=== PATIENT | male | born 1935 | race Caucasian/White ===

== ENCOUNTER 2018-12-27 16:57 | Inpatient (IN) ==
--- NOTE | 2018-12-27 18:03 | Emergency Department Note ---
Entered by Andrew Goldberg acting as a scribe for Dayton Mina DO History of Present Illness General Chief complaint: Cough Stated complaint: COUGH Source: patient and family (son) Limitations: no limitations History of Present Illness Onset (ago): day(s) (few days) Location: chest Severity: moderate Exacerbated By: + movement Associated symptoms: + denies other symptoms (abdominal pain); no headaches The patient is an 83-year-old male who presented to the emergency department for an evaluation of difficulty breathing. The patient's history is mostly obtained from his son. The patient was seen by home health today. He has been having difficulty breathing and cough over the last few days but also has been noticing episodes of emesis. His son states that he has a reported altered mental status according to the home health nurse but the patient's son states that he is very close to his baseline with his underlying dementia. The patient does not have a documented fever. He does not complain of any headache or abdominal pain. He does complain of some difficulty breathing upon exertion but does not have orthopnea or lower extremity edema according to the son. The patient has not seen his family doctor for the symptoms. The symptoms were moderate to severe and the patient arrived via ambulance but was sent to the emergency department because of high acuity in the department. Home Medications Home Medications Medication Instructions Recorded Confirmed Type aspirin 81 mg PO QAM 12/27/18 12/27/18 History carvedilol 6.25 mg PO BID 12/27/18 12/28/18 History citalopram [Celexa] 20 mg PO QDL 12/27/18 12/27/18 History cyanocobalamin (vitamin B-12) 1,000 mcg PO QAM 12/27/18 12/27/18 History [Vitamin B-12] donepezil [Aricept] 10 mg PO QDL 12/27/18 12/27/18 History fenofibrate micronized 134 mg PO QAM 12/27/18 12/27/18 History lisinopril 10 mg PO QDL 12/27/18 12/27/18 History omega [id number]-fish oil [Fish Oil] 1 cap PO TIDM 12/27/18 12/27/18 History rosuvastatin 20 mg PO HS 12/27/18 12/27/18 History Allergies Allergy/AdvReac Type Severity Reaction Status Date / Time Penicillins Allergy Unknown ANAPHYLAXIS Verified 12/27/18 18:18 Past Med/Surg History Medical History Alzheimer's dementia CKD (chronic kidney disease) stage 3, GFR 30-59 ml/min Dyslipidemia CAD (coronary artery disease) Renal cyst Renal stone Surgical History Hx of cardiac cath Hx of CABG Family History Other Family history non-contributory Social History Current Living Situation: Other Current Living Situation Comment: personal professional healthcare representative Other Information That Helps Us Care for You: No Feels Safe at Home: Yes Safety Concerns: Feels Safe At This Time Smoking Status: Never smoker Tobacco Type: smokeless tobacco Do You Dip or Chew Tobacco: Yes Second Hand Exposure: No Tobacco Cessation Education Requested by Patient: No Hx Alcohol Use: No Hx Substance Use: No Beliefs That Will Affect Care: None Communication Ability: Impaired Review of Systems See HPI for pertinent positives & negatives. and A total of 10 systems reviewed and were otherwise negative Physical Exam Vital Signs Vital Signs - 24 hr 12/27/18 19:50 12/27/18 20:00 12/27/18 20:30 Temperature 38.4 C H Temperature Source Axillary Pulse Rate 63 Pulse Rate [Apical] 57 L Pulse Rate [Finger] Pulse Rate from SpO2 Sensor 63 62 Pulse Rhythm [Apical] Pulse Strength [Apical] Respiratory Rate 21 26 H Respiratory Effort / Characteristics Respiratory Depth Respiratory Pattern Blood Pressure 128/56 L Blood Pressure [Left Arm] 126/48 L Blood Pressure [Right Arm] Blood Pressure Mean 80 Blood Pressure Mean [Left Arm] 74 Blood Pressure Mean [Right Arm] Blood Pressure Position [Left Arm] Blood Pressure Position [Right Arm] Pulse Oximetry 96 94 96 Oxygen Delivery Method 12/27/18 20:32 12/27/18 21:54 12/27/18 23:45 Temperature 37.7 C H 36.8 C Temperature Source Axillary Oral Pulse Rate Pulse Rate [Apical] 52 L 50 L Pulse Rate [Finger] Pulse Rate from SpO2 Sensor 60 Pulse Rhythm [Apical] Pulse Strength [Apical] Respiratory Rate 20 16 Respiratory Effort / Characteristics Non-Labored Spontaneous Respiratory Depth Normal Normal Respiratory Pattern Regular Blood Pressure 120/42 L Blood Pressure [Left Arm] 89/46 L Blood Pressure [Right Arm] 102/50 L Blood Pressure Mean 68 Blood Pressure Mean [Left Arm] 60 Blood Pressure Mean [Right Arm] 67 Blood Pressure Position [Left Arm] Blood Pressure Position [Right Arm] Lying Pulse Oximetry 94 96 97 Oxygen Delivery Method Room Air Room Air 12/27/18 23:56 12/28/18 07:42 12/28/18 15:30 Temperature 36.7 C 37.1 C Temperature Source Oral Oral Pulse Rate Pulse Rate [Apical] 53 L 72 Pulse Rate [Finger] Pulse Rate from SpO2 Sensor Pulse Rhythm [Apical] Regular Pulse Strength [Apical] Normal Respiratory Rate 20 20 Respiratory Effort / Characteristics SOB on Exertion Non-Labored Spontaneous Respiratory Depth Normal Respiratory Pattern Regular Regular Blood Pressure Blood Pressure [Left Arm] 126/59 L Blood Pressure [Right Arm] 94/46 L Blood Pressure Mean Blood Pressure Mean [Left Arm] 81 Blood Pressure Mean [Right Arm] 62 Blood Pressure Position [Left Arm] Lying Blood Pressure Position [Right Arm] Lying Pulse Oximetry 96 93 Oxygen Delivery Method Room Air Room Air Room Air 12/28/18 15:40 12/28/18 16:15 Temperature 36.8 C 37.8 C H Temperature Source Oral Axillary Pulse Rate Pulse Rate [Apical] Pulse Rate [Finger] 50 L Pulse Rate from SpO2 Sensor Pulse Rhythm [Apical] Pulse Strength [Apical] Respiratory Rate 18 Respiratory Effort / Characteristics Respiratory Depth Respiratory Pattern Blood Pressure Blood Pressure [Left Arm] Blood Pressure [Right Arm] 118/56 L Blood Pressure Mean Blood Pressure Mean [Left Arm] Blood Pressure Mean [Right Arm] 76 Blood Pressure Position [Left Arm] Blood Pressure Position [Right Arm] Lying Pulse Oximetry 94 Oxygen Delivery Method Room Air GENERAL: Patient is awake alert. He is somewhat anxious appearing but appears to be comfortable. EYES: The conjunctivae are clear. The pupils are round and reactive. EARS, NOSE, MOUTH AND THROAT: The nose is without any evidence of any deformity. Mucous membranes are moist.Tongue is midline NECK: The neck is nontender and supple. RESPIRATORY: Diminished breath sounds were noted in the right lung field. There are rales at the left lung field. There is no tachypnea or conversational dyspnea appreciated. CARDIOVASCULAR: Regular rate and rhythm noted. There no murmurs rubs or gallops normal S1 normal S2 GASTROINTESTINAL: The abdomen is soft. Bowel sounds are present in all quadrants. Abdomen is nontender. MUSCULOSKELETAL/EXTREMITIES: There is no evidence of gross deformity. Full range of motion is noted in the hips and shoulders. SKIN: There is no obvious evidence of any rash. There are no petechiae, pallor or cyanosis noted. NEUROLOGIC: Patient is awake alert and oriented to person but not place or situation. Patient follows commands. Strength was diminished but symmetric. Course 1757: Past medical records reviewed. The patient was evaluated in room C4, and a complete history and physical examination were performed. 1939: I reevaluated the patient. I talked to the patient's son and he states he does not want his father to go home. 1954: I reviewed the patient's case with Dr. Parks [facility] Hospitalist. He will evaluate the patient for further management. Administered Medications Acetaminophen (Tylenol) 650 mg PO Q4H PRN PRN Reason: pain/fever Stop: 01/26/19 22:32 Last Admin: 12/28/18 16:19 Dose: 650 mg Aspirin (Ecotrin Ectab) 81 mg PO QAM [facility] Stop: 01/27/19 08:59 Last Admin: 12/28/18 08:48 Dose: 81 mg Citalopram Hydrobromide (Celexa) 20 mg PO QDL [facility] Stop: 01/27/19 11:29 Last Admin: 12/28/18 10:35 Dose: 20 mg Cyanocobalamin (Vitamin B-12) 1,000 mcg PO QAM [facility] Stop: 01/27/19 08:59 Last Admin: 12/28/18 08:47 Dose: 1,000 mcg Donepezil HCl (Aricept) 10 mg PO QDL [facility] Stop: 01/27/19 11:29 Last Admin: 12/28/18 10:35 Dose: 10 mg Fish Oil (Philo-3 (Purified Fish Oil)) 1 gm PO TIDM [facility] Stop: 01/27/19 07:59 Last Admin: 12/28/18 17:19 Dose: Not Given Admin: 12/28/18 11:04 Dose: Not Given Admin: 12/28/18 08:48 Dose: 1 gm Sodium Chloride (Nss 1000ml) 1,000 mls @ 100 mls/hr IV .Q10H [facility] Stop: 01/26/19 23:44 Last Admin: 12/28/18 08:56 Dose: 100 mls/hr Infusion: 12/28/18 08:56 Dose: 100 mls/hr Admin: 12/27/18 23:42 Dose: 100 mls/hr Oseltamivir Phosphate (Tamiflu) 30 mg PO DAILY JESSICA; Protocol Stop: 01/02/19 08:59 Last Admin: 12/28/18 10:00 Dose: 30 mg Discontinued Medications Acetaminophen (Tylenol) 1,000 mg PO NOW STA Stop: 12/27/18 19:51 Last Admin: 12/27/18 20:22 Dose: Not Given Carvedilol (Coreg) 6.25 mg PO BID JESSICA Stop: 01/27/19 08:59 Last Admin: 12/28/18 08:45 Dose: 3.12 mg Sodium Chloride (Nss 1000ml) 500 mls @ 999 mls/hr IV .Q31M ONE Stop: 12/27/18 20:05 Last Infusion: 12/27/18 20:22 Dose: Admin: 12/27/18 19:49 Dose: 999 mls/hr Acetaminophen (Ofirmev) 1,000 mg in 100 mls @ 400 mls/hr IV NOW STA Stop: 12/27/18 20:38 Last Infusion: 12/27/18 21:02 Dose: 0 mls/hr Admin: 12/27/18 20:38 Dose: 400 mls/hr Sodium Chloride (Nss) 500 mls @ 500 mls/hr IV .Q1H JESSICA Stop: 12/27/18 23:44 Last Infusion: 12/27/18 23:43 Dose: 0 mls/hr Admin: 12/27/18 22:48 Dose: 500 mls/hr Miscellaneous (Order Awaiting Action) 1 ea N/A QS JESSICA Stop: 01/26/19 22:44 Last Admin: 12/28/18 08:48 Dose: 1 ea Admin: 12/28/18 00:20 Dose: Not Given Admin: 12/27/18 22:48 Dose: Not Given Miscellaneous (Patient's Height And/Or Weight Needed) 1 ea N/A Q2H JESSICA Stop: 12/28/18 04:46 Last Admin: 12/28/18 10:02 Dose: Not Given Admin: 12/28/18 10:02 Dose: Not Given Admin: 12/28/18 10:02 Dose: Not Given Admin: 12/28/18 00:20 Dose: Not Given Miscellaneous (Patient's Height And/Or Weight Needed) 1 ea N/A Q2H JESSICA Stop: 01/27/19 07:44 Last Admin: 12/28/18 12:57 Dose: Not Given Admin: 12/28/18 09:47 Dose: 1 ea Oseltamivir Phosphate (Tamiflu) 75 mg PO NOW STA Stop: 12/27/18 19:22 Last Admin: 12/27/18 20:22 Dose: Not Given Medical Decision Making Differential Diagnosis Etiologies such as pneumonia, COPD, reactive airway disease, CHF, cardiac ischemia, pulmonary embolism, pneumothorax, musculoskeletal, infections, gastrointestinal, as well as others were entertained. Medical Records Attestation: I reviewed the patient's medical records. Home Medications Current Medication List: was personally reviewed by me Laboratory Data Attestation: I reviewed the patient's lab results. Result diagrams: 12/28/18 02:33 12/28/18 02:33 Lab Results 12/27/18 12/27/18 12/27/18 Range/Units 17:53 18:21 18:21 WBC 9.62 (4.8-10.8) K/uL RBC 3.97 L (4.7-6.1) M/uL Hgb 12.0 L (14.0-18.0) g/dL Hct 37.6 L (42-52) % MCV 94.7 (80-100) fL MCH 30.2 (25-34) pg MCHC 31.9 L (32-36) g/dL RDW Std Deviation 50.8 H (36.4-46.3) fL RDW Coeff of Jeffrey 14.7 H (11.5-14.5) % Plt Count 193 (130-400) K/uL MPV 9.8 (7.4-10.4) fL Immature Gran % (Auto) 0.2 % Neut % (Auto) 71.6 % Lymph % (Auto) 8.4 % [place] % (Auto) 19.4 % Eos % (Auto) 0.1 % Baso % (Auto) 0.3 % Immature Gran # (Auto) 0.02 (0.00-0.02) K/uL Neut # (Auto) 6.88 H (1.4-6.5) K/uL Lymph # (Auto) 0.81 L (1.2-3.4) K/uL [place] # (Auto) 1.87 H (0.11-0.59) K/uL Eos # (Auto) 0.01 (0-0.5) K/uL Baso # (Auto) 0.03 (0-0.2) K/uL PT 10.8 (9.0-12.0) Seconds INR 1.1 (0.9-1.1) APTT 25.1 (21.0-31.0) Seconds PTT Ratio 0.9 Sodium (136-145) mmol/L Potassium (3.5-5.1) mmol/L Chloride (98-107) mmol/L Carbon Dioxide (21-32) mmol/L Anion Gap (3-11) BUN (7-18) mg/dl Creatinine (0.6-1.4) mg/dl Est Cr Clr Drug Dosing Est GFR ( Amer) Est GFR (Non-Af Amer) BUN/Creatinine Ratio (10-20) Glucose (70-99) mg/dl Lactate (0.4-2.0) mmol/L Calcium (8.5-10.1) mg/dl Magnesium (1.8-2.4) mg/dl Total Bilirubin (0.2-1) mg/dl AST (15-37) U/L ALT (12-78) U/L Alkaline Phosphatase (45-117) U/L Troponin I (0-0.045) ng/ml Total Protein (6.4-8.2) gm/dl Albumin (3.4-5.0) gm/dl Globulin (2.5-4.0) gm/dl Albumin/Globulin Ratio (0.9-2) Influenza Type A (PCR) Pos for Influ A A* (Neg) Influenza Type B (PCR) Neg for Influ B (Neg) 12/27/18 12/28/18 12/28/18 Range/Units 18:21 02:33 02:33 WBC 8.18 (4.8-10.8) K/uL RBC 3.52 L (4.7-6.1) M/uL Hgb 10.7 L (14.0-18.0) g/dL Hct 33.4 L (42-52) % MCV 94.9 (80-100) fL MCH 30.4 (25-34) pg MCHC 32.0 (32-36) g/dL RDW Std Deviation 52.3 H (36.4-46.3) fL RDW Coeff of Jeffrey 15.1 H (11.5-14.5) % Plt Count 158 (130-400) K/uL MPV 9.5 (7.4-10.4) fL Immature Gran % (Auto) 0.2 % Neut % (Auto) 59.7 % Lymph % (Auto) 22.2 % [place] % (Auto) 17.6 % Eos % (Auto) 0.1 % Baso % (Auto) 0.2 % Immature Gran # (Auto) 0.02 (0.00-0.02) K/uL Neut # (Auto) 4.87 (1.4-6.5) K/uL Lymph # (Auto) 1.82 (1.2-3.4) K/uL [place] # (Auto) 1.44 H (0.11-0.59) K/uL Eos # (Auto) 0.01 (0-0.5) K/uL Baso # (Auto) 0.02 (0-0.2) K/uL PT (9.0-12.0) Seconds INR (0.9-1.1) APTT (21.0-31.0) Seconds PTT Ratio Sodium 135 L 139 (136-145) mmol/L Potassium 4.7 4.3 (3.5-5.1) mmol/L Chloride 106 110 H (98-107) mmol/L Carbon Dioxide 23 21 (21-32) mmol/L Anion Gap 6.0 8.0 (3-11) BUN 29 H 27 H (7-18) mg/dl Creatinine 2.07 H 1.98 H (0.6-1.4) mg/dl Est Cr Clr Drug Dosing Not Reportable Not Reportable Est GFR ( Amer) 33.3 35.2 Est GFR (Non-Af Amer) 28.8 30.3 BUN/Creatinine Ratio 13.9 13.8 (10-20) Glucose 98 82 (70-99) mg/dl Lactate (0.4-2.0) mmol/L Calcium 8.9 7.7 L (8.5-10.1) mg/dl Magnesium 2.1 2.1 (1.8-2.4) mg/dl Total Bilirubin 0.9 (0.2-1) mg/dl AST 25 (15-37) U/L ALT 21 (12-78) U/L Alkaline Phosphatase 39 L (45-117) U/L Troponin I 0.021 (0-0.045) ng/ml Total Protein 7.5 (6.4-8.2) gm/dl Albumin 3.3 L (3.4-5.0) gm/dl Globulin 4.2 H (2.5-4.0) gm/dl Albumin/Globulin Ratio 0.8 L (0.9-2) Influenza Type A (PCR) (Neg) Influenza Type B (PCR) (Neg) 12/28/18 Range/Units 02:33 WBC (4.8-10.8) K/uL RBC (4.7-6.1) M/uL Hgb (14.0-18.0) g/dL Hct (42-52) % MCV (80-100) fL MCH (25-34) pg MCHC (32-36) g/dL RDW Std Deviation (36.4-46.3) fL RDW Coeff of Jeffrey (11.5-14.5) % Plt Count (130-400) K/uL MPV (7.4-10.4) fL Immature Gran % (Auto) % Neut % (Auto) % Lymph % (Auto) % [place] % (Auto) % Eos % (Auto) % Baso % (Auto) % Immature Gran # (Auto) (0.00-0.02) K/uL Neut # (Auto) (1.4-6.5) K/uL Lymph # (Auto) (1.2-3.4) K/uL [place] # (Auto) (0.11-0.59) K/uL Eos # (Auto) (0-0.5) K/uL Baso # (Auto) (0-0.2) K/uL PT (9.0-12.0) Seconds INR (0.9-1.1) APTT (21.0-31.0) Seconds PTT Ratio Sodium (136-145) mmol/L Potassium (3.5-5.1) mmol/L Chloride (98-107) mmol/L Carbon Dioxide (21-32) mmol/L Anion Gap (3-11) BUN (7-18) mg/dl Creatinine (0.6-1.4) mg/dl Est Cr Clr Drug Dosing Est GFR ( Amer) Est GFR (Non-Af Amer) BUN/Creatinine Ratio (10-20) Glucose (70-99) mg/dl Lactate 1.1 (0.4-2.0) mmol/L Calcium (8.5-10.1) mg/dl Magnesium (1.8-2.4) mg/dl Total Bilirubin (0.2-1) mg/dl AST (15-37) U/L ALT (12-78) U/L Alkaline Phosphatase (45-117) U/L Troponin I (0-0.045) ng/ml Total Protein (6.4-8.2) gm/dl Albumin (3.4-5.0) gm/dl Globulin (2.5-4.0) gm/dl Albumin/Globulin Ratio (0.9-2) Influenza Type A (PCR) (Neg) Influenza Type B (PCR) (Neg) Imaging Data Radiologist's Impression: Radiology results as stated below per my review and the radiologist's interpretation: CT SCAN OF THE BRAIN WITHOUT IV CONTRAST CLINICAL HISTORY: Change in mental status. COMPARISON STUDY: CT of the brain dated 08/24/2016. TECHNIQUE: Unenhanced axial CT scan of the brain is performed from the vertex to the skull base. A dose lowering technique was utilized adhering to the principles of ALARA. CT DOSE: 537.48 mGy.cm FINDINGS: Brain parenchyma: There are age-related involutional changes noting mild to moderate subcortical and periventricular microangiopathic change. There is no hemorrhage, mass effect, or evidence of acute territorial ischemia by CT criteria. Page-white matter differentiation is preserved. No extra-axial fluid collection is seen. Ventricles, sulci, cisterns: Prominent secondary to involutional change. Intracranial vasculature: There is atherosclerotic calcification of the cavernous carotid and vertebral arteries. Calvarium: Unremarkable. Sinuses and mastoids: The visualized paranasal sinuses are clear. The mastoid air cells are well pneumatized. Orbits: The bony orbits are grossly intact. IMPRESSION: There is no hemorrhage, mass effect, or evidence of acute territorial ischemia by CT criteria. Electronically signed by: Justus Watson M.D. 12/27/2018 7:10 PM SINGLE VIEW CHEST CLINICAL HISTORY: Dyspnea. FINDINGS: An AP, portable, upright chest radiograph is compared to study dated . The examination is degraded by portable technique and patient rotation. The patient is status post midline sternotomy. The heart is enlarged and there is atherosclerotic calcification of the thoracic aorta. The pulmonary vasculature is noncongested. Chronic interstitial thickening is similar to previous. Bibasilar atelectasis is noted. No airspace consolidation or large pleural effusion is identified. No pneumothorax is seen. The skeletal structures are osteopenic. The bony thorax is grossly intact. Degenerative change is noted in the shoulders and thoracic spine. IMPRESSION: Cardiomegaly with no acute cardiopulmonary abnormality. Electronically signed by: Justus Watson M.D. 12/27/2018 7:[address] SCAN OF THE ABDOMEN AND PELVIS WITHOUT IV CONTRAST CLINICAL HISTORY: Vomiting. COMPARISON STUDY: No priors. TECHNIQUE: CT scan of the abdomen and pelvis is performed from the lung bases to the proximal femora. Images are reviewed in the axial, sagittal, and coronal planes. IV contrast was not administered for this examination as per the referring clinician. Note that the examination was performed in significantly suboptimal fashion without oral and IV contrast. The examination is also degraded by streak artifact from the arms which could not be elevated above the abdomen as well as motion. A dose lowering technique was utilized adhering to the principles of ALARA. CT DOSE: 803.29 mGy.cm FINDINGS: Lung bases: The heart is enlarged and without pericardial effusion. The coronary arteries are densely calcified. A small hiatal hernia is noted. There is bibasilar scarring/atelectasis. No airspace consolidation or pleural effusion is seen. Liver: The unenhanced liver is normal in size, contour, and attenuation. There is no intrahepatic biliary ductal dilatation. Gallbladder: The gallbladder is contracted. A calcified gallstone measures at least 12 mm. Spleen: Normal in size and attenuation. Pancreas: The unenhanced pancreas is mildly atrophic and grossly unremarkable. Adrenal glands: Unremarkable. Kidneys: The unenhanced kidneys are atrophic and without hydronephrosis. A 6 cm nonobstructing calculus is seen in the right lower pole. No left renal calculi are identified. Bilateral renal cysts measure up to 5 cm. A complex/hemorrhagic cyst on the left measures 10 mm as seen on image #[id number]. Abdominal vasculature: There is advanced atherosclerotic calcification and mild ectasia of the abdominal aorta. Bowel: There is mild to moderate colonic diverticulosis without CT evidence of acute diverticulitis. No bowel obstruction is seen. The appendix is well- visualized and normal. Peritoneum: There is no intraperitoneal free air or abdominal ascites. Lymphadenopathy: None. Pelvic viscera: The prostate gland is mildly enlarged and heterogeneous, measuring 5 cm in transverse diameter. The bladder is normal as imaged. Skeletal structures: The skeletal structures are osteopenic. Moderate lumbosacral spondylosis is observed. No lytic or blastic lesions are seen. IMPRESSION: 1. Significantly suboptimal examination without oral and IV contrast. The examination is also compromised by streak and motion artifact. 2. There are no acute infectious or inflammatory findings in the abdomen or pelvis. 3. Mild to moderate colonic diverticulosis without CT evidence of acute diverticulitis. 4. Cardiomegaly. 5. Cholelithiasis. 6. Right-sided nephrolithiasis. 7. Additional findings as above. Electronically signed by: Justus Watson M.D. 12/27/2018 7:23 PM ECG Data Attestation: I personally reviewed and interpreted this ECG as follows: Indication: SOB/dyspnea Rate (beats per minute): 59 Findings: + other (LVH), + ST depression (lateral) and + T-wave inversion; no ectopy Comparison ECG Date: from (04/25/14) Change: the following changes noted (lateral st depression, t wave inversions, LVH) Blood Pressure Blood Pressure Findings: Low blood pressure Blood Pressure Disposition: further management by hospitalist ZAHIDA Reece The patient is an 83-year-old male who presented to the emergency department for an evaluation of upper respiratory symptoms. Initially the patient did not have a fever but he was found to have a fever while he was in the emergency department. The patient had cough as well as episodes of emesis. I discussed the patient's laboratory and radiographic studies with him and his son. The patient was found to have some degree of dehydration with an elevated creatinine compared to baseline as well as a positive flu swab. His EKG also showed some changes which were not noted previously. Initially the patient was treated with IV fluids as well as Tamiflu. He was reevaluated and continues to have very poor health. I discussed his case with the on-call [facility] hospitalist group. They have agreed to evaluate the patient in the emergency department for further management and disposition. Normally the patient does have the ability to ambulate without assistance or difficulty. I do feel this is a change from his baseline. Impression & Plan Influenza, Dehydration Discharge Plan Visit Data *Final* Discharge Date/Time: 12/27/18 22:04 Chief Complaint: Cough Stated Complaint: COUGH ED Provider: Dayton Mina Discharge Problem: Influenza, Dehydration Patient Disposition: Admitted As Inpatient Discharge Instructions Interventions: ED Discharge Assessment Last Done: 12/27/18 22:04 The scribe's documentation has been prepared under my direction and personally reviewed by me in its entirety. I confirm that the note above accurately reflects all work, treatment, procedures, and medical decision making performed by me.
[2018-12-27 18:24] LABS: Influenza B virus by PCR Neg for Influ B (Neg)
[2018-12-27 18:39] LABS: Basophils # (auto) 0.03 K/uL (0-0.2); Basophils % (auto) 0.3 %; Eosinophils # (auto) 0.01 K/uL (0-0.5); Eosinophils % (auto) 0.1 %; Hematocrit (blood only) 37.6 % (42-52); Immature Granulocytes # (auto) 0.02 K/uL (0.00-0.02); Immature Granulocytes % (auto) 0.2 %; Lymphocytes # (auto) 0.81 K/uL (1.2-3.4); Lymphocytes % (auto) 8.4 %; Mean Corpuscular Hgb Conc 31.9 g/dL (32-36); Mean Corpuscular Volume 94.7 fL (80-100); Mean Platelet Volume 9.8 fL (7.4-10.4); Monocytes # (auto) 1.87 K/uL (0.11-0.59); Monocytes % (auto) 19.4 %; Neutrophils # (auto) 6.88 K/uL (1.4-6.5); Neutrophils % (auto) 71.6 %; Platelet Count 193 K/uL (130-400); RDW Coefficient of Variation 14.7 % (11.5-14.5); RDW Standard Deviation 50.8 fL (36.4-46.3); Red Blood Count 3.97 M/uL (4.7-6.1); White Blood Count 9.62 K/uL (4.8-10.8)
[2018-12-27 18:50] LABS: INR 1.1 (0.9-1.1); Partial Thromboplastin Ratio 0.9; Partial Thromboplastin Time 25.1 Seconds (21.0-31.0); Prothrombin Time 10.8 Seconds (9.0-12.0)
[2018-12-27 18:57] LABS: Alanine Aminotransferase 21 U/L (12-78); Albumin Level 3.3 gm/dl (3.4-5.0); Aspartate Aminotransferase 25 U/L (15-37); BUN Creatinine Ratio 13.9 (10-20); Blood Urea Nitrogen 29 mg/dl (7-18); Calcium 8.9 mg/dl (8.5-10.1); Carbon Dioxide 23 mmol/L (21-32); Chloride 106 mmol/L (98-107); Est GFR (African American) 33.3; Est GFR (Non-African American) 28.8; Glucose 98 mg/dl (70-99); Magnesium 2.1 mg/dl (1.8-2.4); Potassium 4.7 mmol/L (3.5-5.1); Sodium 135 mmol/L (136-145)
[2018-12-27 19:01] LABS: Albumin Globulin Ratio 0.8 (0.9-2); Alkaline Phosphatase 39 U/L (45-117); Bilirubin,Total 0.9 mg/dl (0.2-1); Globulin 4.2 gm/dl (2.5-4.0); Total Protein 7.5 gm/dl (6.4-8.2); Troponin I 0.021 ng/ml (0-0.045)
--- NOTE | 2018-12-27 19:11 | CT Scan Report ---
CT SCAN OF THE BRAIN WITHOUT IV CONTRAST CLINICAL HISTORY: Change in mental status. COMPARISON STUDY: CT of the brain dated 08/24/2016. TECHNIQUE: Unenhanced axial CT scan of the brain is performed from the vertex to the skull base. A do se lowering technique was utilized adhering to the principles of ALARA. CT DOSE: 537.48 mGy.cm FINDINGS: Brain parenchyma: There are age-related involutional changes noting mild to moderate subcortical and periventricular microangiopathic change. There is no hemorrhage, mass effect, or evidence of acute t erritorial ischemia by CT criteria. Page-white matter differentiation is preserved. No extra-axial fl uid collection is seen. Ventricles, sulci, cisterns: Prominent secondary to involutional change. Intracranial vasculature: There is atherosclerotic calcification of the cavernous carotid and vertebr al arteries. Calvarium: Unremarkable. Sinuses and mastoids: The visualized paranasal sinuses are clear. The mastoid air cells are well pneu matized. Orbits: The bony orbits are grossly intact. IMPRESSION: There is no hemorrhage, mass effect, or evidence of acute territorial ischemia by CT linda hopkins. Electronically signed by: Justus Watson M.D. 12/27/2018 7:10 PM
--- NOTE | 2018-12-27 19:18 | XRay Report ---
SINGLE VIEW CHEST CLINICAL HISTORY: Dyspnea. FINDINGS: An AP, portable, upright chest radiograph is compared to study dated 04/25/2015. The examina tion is degraded by portable technique and patient rotation. The patient is status post midline ster notomy. The heart is enlarged and there is atherosclerotic calcification of the thoracic aorta. The p ulmonary vasculature is noncongested. Chronic interstitial thickening is similar to previous. Bibasil ar atelectasis is noted. No airspace consolidation or large pleural effusion is identified. No pneumo thorax is seen. The skeletal structures are osteopenic. The bony thorax is grossly intact. Degenerati ve change is noted in the shoulders and thoracic spine. IMPRESSION: Cardiomegaly with no acute cardiopulmonary abnormality. Electronically signed by: Justus Watson M.D. 12/27/2018 7:17 PM
[2018-12-27] MEDS ORDERED: OSELTAMIVIR PHOSPHATE 75 MG CAP PO STA (19:21)
--- NOTE | 2018-12-27 19:25 | CT Scan Report ---
CT SCAN OF THE ABDOMEN AND PELVIS WITHOUT IV CONTRAST CLINICAL HISTORY: Vomiting. COMPARISON STUDY: No priors. TECHNIQUE: CT scan of the abdomen and pelvis is performed from the lung bases to the proximal femora. Images are reviewed in the axial, sagittal, and coronal planes. IV contrast was not administered for this examination as per the referring clinician. Note that the examination was performed in signific antly suboptimal fashion without oral and IV contrast. The examination is also degraded by streak art ifact from the arms which could not be elevated above the abdomen as well as motion. A dose lowering technique was utilized adhering to the principles of ALARA. CT DOSE: 803.29 mGy.cm FINDINGS: Lung bases: The heart is enlarged and without pericardial effusion. The coronary arteries are densely calcified. A small hiatal hernia is noted. There is bibasilar scarring/atelectasis. No airspace cons olidation or pleural effusion is seen. Liver: The unenhanced liver is normal in size, contour, and attenuation. There is no intrahepatic loly iary ductal dilatation. Gallbladder: The gallbladder is contracted. A calcified gallstone measures at least 12 mm. Spleen: Normal in size and attenuation. Pancreas: The unenhanced pancreas is mildly atrophic and grossly unremarkable. Adrenal glands: Unremarkable. Kidneys: The unenhanced kidneys are atrophic and without hydronephrosis. A 6 cm nonobstructing calcul us is seen in the right lower pole. No left renal calculi are identified. Bilateral renal cysts measu re up to 5 cm. A complex/hemorrhagic cyst on the left measures 10 mm as seen on image #[id number]. Abdominal vasculature: There is advanced atherosclerotic calcification and mild ectasia of the abdomi nal aorta. Bowel: There is mild to moderate colonic diverticulosis without CT evidence of acute diverticulitis. No bowel obstruction is seen. The appendix is well-visualized and normal. Peritoneum: There is no intraperitoneal free air or abdominal ascites. Lymphadenopathy: None. Pelvic viscera: The prostate gland is mildly enlarged and heterogeneous, measuring 5 cm in transverse diameter. The bladder is normal as imaged. Skeletal structures: The skeletal structures are osteopenic. Moderate lumbosacral spondylosis is obse rved. No lytic or blastic lesions are seen. IMPRESSION: 1. Significantly suboptimal examination without oral and IV contrast. The examination is also comprom ised by streak and motion artifact. 2. There are no acute infectious or inflammatory findings in the abdomen or pelvis. 3. Mild to moderate colonic diverticulosis without CT evidence of acute diverticulitis. 4. Cardiomegaly. 5. Cholelithiasis. 6. Right-sided nephrolithiasis. 7. Additional findings as above. Electronically signed by: Justus Watson M.D. 12/27/2018 7:23 PM
[2018-12-27] MEDS ORDERED: SODIUM CHLORIDE 0.9% 1000ML 500 ML IV ONE (19:35)
[2018-12-27] MEDS ORDERED: ACETAMINOPHEN 500 MG TAB PO STA (19:50)
[2018-12-27] MEDS ORDERED: ACETAMINOPHEN 1,000 MG/100 ML VIAL IV STA (20:24)
[2018-12-27] MEDS ORDERED: ACETAMINOPHEN 325 MG TAB PO PRN (22:33)
[2018-12-27] MEDS ORDERED: LEVALBUTEROL 1.25MG/0.5ML NEB NEB PRN (22:33)
[2018-12-27] MEDS ORDERED: ONDANSETRON INJ 2 MG/ML 2 ML VIAL IV PRN (22:33)
[2018-12-27] MEDS ORDERED: SODIUM CHLORIDE 0.9% 500 ML IV SCH (22:45)
[2018-12-27] MEDS: FENOFIBRATE~ORDER AWAITING ACTION SCH (22:48)
[2018-12-27] MEDS: SODIUM CHLORIDE 0.9% 1000ML 1,000 ML IV SCH (23:42)
--- NOTE | 2018-12-27 23:50 | History & Physical Report ---
Date of Service December 27, 2018 Chief complaint: Cough, fever and weakness Assessment & Plan (1) Influenza A: Patient presented with generalized weakness, dry cough and fever CXr unremarkable' Influenza A positive started on Tamiflu nebs prn IV fluids and supportive care monitor in medical floor Present on Admission?: Yes (2) Kidney stones: Right sided nephrolithiasis non obstructive followup with urology Present on Admission?: Yes (3) CAD (coronary artery disease): s/p cabg on aspirin, coreg, statin stable Present on Admission?: Yes (4) CKD (chronic kidney disease) stage 3, GFR 30-59 ml/min: baseline cr 15 to 1.6 (5) Alzheimer's dementia: oriented to name only lives with son can ambulate ok until today on regular low salt diet at home continue aricept will montior delrium pt/ot when stable Present on Admission?: Yes (6) Renal cyst: Bilateral renal cyst 5mm Complex/Hemorrhagic cyst 10mm on left side will consult urology in am Present on Admission?: Yes (7) CHF (congestive heart failure): Echo in 2009 EF 35-40% Echo in 2014 in [facility] Ef 55-59% and grade 1 diastolic chf not on any diuretics getting fluids will monitor for volume overload Present on Admission?: Yes (8) GAVIN (acute kidney injury): Baseline cr 1.5 to 1.6 presented with cr 2 mostly from ongoing illness will hold lisinopril on fluids follow labs in am. Present on Admission?: Yes (9) HTN (hypertension): on coreg and lisinopril holding lisinopril for gavin to give coreg with holding parameters as BP on lower side. Present on Admission?: Yes (10) Dyslipidemia: on statin Present on Admission?: Yes History of Present Illness Chief Complaint: Cough, fever and weakness. Primary Care Provider: Orestes Wesley MD This is a 83-year-old male with past medical history significant for CAD status post CABG, dyslipidemia, chronic kidney disease stage III, hypertension, Alzheimer's dementia with recurrent oriented to name only and and can recognize his son and who lives with his son was brought in because of fever cough and weakness. Patient was having the symptoms started yesterday but really got worse today. Patient generally ambulates with the help of cane at home but today he was not able to get up from the bed. Dry cough. No nausea or vomiting. No diarrhea. Generally able to eat regular diet. Patient is alert and awake. Answers simple questions. Denies any headache. No earaches or runny nose. No sore throat. Denies nausea. Denies chest pain or shortness of breath. No abdominal pain. Cannot get any rest of the review of symptoms as patient has severe dementia. Currently resting comfortably and hemodynamically stable. Allergies Allergy/AdvReac Type Severity Reaction Status Date / Time Penicillins Allergy Unknown ANAPHYLAXIS Verified 12/27/18 18:18 Home Medications Home Medications Medication Instructions Recorded Confirmed Type aspirin 81 mg PO QAM 12/27/18 12/27/18 History carvedilol 6.25 mg PO BID 12/27/18 12/28/18 History citalopram [Celexa] 20 mg PO QDL 12/27/18 12/27/18 History cyanocobalamin (vitamin B-12) 1,000 mcg PO QAM 12/27/18 12/27/18 History [Vitamin B-12] donepezil [Aricept] 10 mg PO QDL 12/27/18 12/27/18 History fenofibrate micronized 134 mg PO QAM 12/27/18 12/27/18 History lisinopril 10 mg PO QDL 12/27/18 12/27/18 History omega 0-yfq-bgu-fish oil [Fish Oil] 1 cap PO TIDM 12/27/18 12/27/18 History rosuvastatin 20 mg PO HS 12/27/18 12/27/18 History Past Med/Surg History Medical History Alzheimer's dementia CKD (chronic kidney disease) stage 3, GFR 30-59 ml/min Dyslipidemia CAD (coronary artery disease) Surgical History Hx of cardiac cath Hx of CABG Family History Other Family history non-contributory Social History Current Living Situation: 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 Patient has severe dementia Physical Exam 2 Vital Signs (Past 24 Hours): Last Vital Signs Temp 37.7 C H 12/27/18 21:54 Pulse 52 L 12/27/18 21:54 Resp 20 12/27/18 21:54 BP 89/46 L 12/27/18 21:54 Pulse Ox 96 12/27/18 21:54 Physical Exam: General- Not in distress Head- atraumatic Eyes- PERRL,No pallor, anicteric ENT- oropharynx clear,Dry Neck- supple, no JVD, no adenopathy, carotids +2/2, no bruits appreciated Lungs- clear to auscultation and percussion, No wheezing or crackles Heart- S1 and s2 heard regular rhythm; no murmur Abdomen- normal bowel sounds, soft, nontender, no masses no distension Extremities- no pretibial edema, no erythema Neuro- alert, awake ; PERRL,EOMI, no facial palsy; no dysarthria; Moves extremities Skin- warm & dry Results & Data Laboratory Results Laboratory Results - last 24 hr 12/27/18 12/27/18 12/27/18 17:53 18:21 18:21 WBC 9.62 RBC 3.97 L Hgb 12.0 L Hct 37.6 L MCV 94.7 MCH 30.2 MCHC 31.9 L RDW Std Deviation 50.8 H RDW Coeff of Jeffrey 14.7 H Plt Count 193 MPV 9.8 Immature Gran % (Auto) 0.2 Neut % (Auto) 71.6 Lymph % (Auto) 8.4 Porter % (Auto) 19.4 Eos % (Auto) 0.1 Baso % (Auto) 0.3 Immature Gran # (Auto) 0.02 Neut # (Auto) 6.88 H Lymph # (Auto) 0.81 L Porter # (Auto) 1.87 H Eos # (Auto) 0.01 Baso # (Auto) 0.03 PT 10.8 INR 1.1 APTT 25.1 PTT Ratio 0.9 Sodium Potassium Chloride Carbon Dioxide Anion Gap BUN Creatinine Est Cr Clr Drug Dosing Est GFR ( Amer) Est GFR (Non-Af Amer) BUN/Creatinine Ratio Glucose Calcium Magnesium Total Bilirubin AST ALT Alkaline Phosphatase Troponin I Total Protein Albumin Globulin Albumin/Globulin Ratio Influenza Type A (PCR) Pos for Influ A A* Influenza Type B (PCR) Neg for Influ B 12/27/18 18:21 WBC RBC Hgb Hct MCV MCH MCHC RDW Std Deviation RDW Coeff of Jeffrey Plt Count MPV Immature Gran % (Auto) Neut % (Auto) Lymph % (Auto) Porter % (Auto) Eos % (Auto) Baso % (Auto) Immature Gran # (Auto) Neut # (Auto) Lymph # (Auto) Porter # (Auto) Eos # (Auto) Baso # (Auto) PT INR APTT PTT Ratio Sodium 135 L Potassium 4.7 Chloride 106 Carbon Dioxide 23 Anion Gap 6.0 BUN 29 H Creatinine 2.07 H Est Cr Clr Drug Dosing Not Reportable Est GFR ( Amer) 33.3 Est GFR (Non-Af Amer) 28.8 BUN/Creatinine Ratio 13.9 Glucose 98 Calcium 8.9 Magnesium 2.1 Total Bilirubin 0.9 AST 25 ALT 21 Alkaline Phosphatase 39 L Troponin I 0.021 Total Protein 7.5 Albumin 3.3 L Globulin 4.2 H Albumin/Globulin Ratio 0.8 L Influenza Type A (PCR) Influenza Type B (PCR) Diagnostic Findings CT HEAD: There is no hemorrhage, mass effect, or evidence of acute territorial ischemia by CT criteria. CXR: Cardiomegaly with no acute cardiopulmonary abnormality. CT ABD/PELVIS: 1. Significantly suboptimal examination without oral and IV contrast. The examination is also compromised by streak and motion artifact. 2. There are no acute infectious or inflammatory findings in the abdomen or pelvis. 3. Mild to moderate colonic diverticulosis without CT evidence of acute diverticulitis. 4. Cardiomegaly. 5. Cholelithiasis. 6. Right-sided nephrolithiasis. ECG Additional Comments: ekg: SINUS BRADYCARDIA AT ATE OF 59. T WAVE INVERSION IN ANTEROLATERAL LEADS. ( seems same as in epic records) Code Status & VTE Plan Code Status DNR _ (1) CHF (congestive heart failure) Heart failure chronicity: chronic Heart failure type: combined systolic and diastolic Qualified Code(s): I50.42 - Chronic combined systolic (congestive) and diastolic (congestive) heart failure
[2018-12-28] MEDS: PATIENT'S HEIGHT AND/OR WEIGHT NEEDED SCH ×4 (00:20→12:57)
[2018-12-28] MEDS: FENOFIBRATE~ORDER AWAITING ACTION SCH ×2 (00:20→08:48)
[2018-12-28 02:40] LABS: Basophils # (auto) 0.02 K/uL (0-0.2); Basophils % (auto) 0.2 %; Eosinophils # (auto) 0.01 K/uL (0-0.5); Eosinophils % (auto) 0.1 %; Hematocrit (blood only) 33.4 % (42-52); Hemoglobin 10.7 g/dL (14.0-18.0); Immature Granulocytes # (auto) 0.02 K/uL (0.00-0.02); Immature Granulocytes % (auto) 0.2 %; Lymphocytes # (auto) 1.82 K/uL (1.2-3.4); Lymphocytes % (auto) 22.2 %; Mean Corpuscular Volume 94.9 fL (80-100); Mean Platelet Volume 9.5 fL (7.4-10.4); Monocytes # (auto) 1.44 K/uL (0.11-0.59); Monocytes % (auto) 17.6 %; Neutrophils # (auto) 4.87 K/uL (1.4-6.5); Neutrophils % (auto) 59.7 %; Platelet Count 158 K/uL (130-400); RDW Coefficient of Variation 15.1 % (11.5-14.5); RDW Standard Deviation 52.3 fL (36.4-46.3); Red Blood Count 3.52 M/uL (4.7-6.1); White Blood Count 8.18 K/uL (4.8-10.8)
[2018-12-28 02:58] LABS: BUN Creatinine Ratio 13.8 (10-20); Blood Urea Nitrogen 27 mg/dl (7-18); Calcium 7.7 mg/dl (8.5-10.1); Carbon Dioxide 21 mmol/L (21-32); Chloride 110 mmol/L (98-107); Est GFR (African American) 35.2; Est GFR (Non-African American) 30.3; Glucose 82 mg/dl (70-99); Magnesium 2.1 mg/dl (1.8-2.4); Potassium 4.3 mmol/L (3.5-5.1); Sodium 139 mmol/L (136-145)
[2018-12-28] MEDS: CYANOCOBALAMIN 500 MCG TABLET (VITAMIN B-12) PO SCH (08:47)
[2018-12-28] MEDS: OMEGA-3 (PURIFIED FISH OIL) 1 GM CAP PO SCH ×3 (08:48→17:19)
[2018-12-28] MEDS: ASPIRIN 81 MG ECTAB PO SCH (08:48)
[2018-12-28] MEDS: SODIUM CHLORIDE 0.9% 1000ML 1,000 ML IV SCH ×2 (08:56→21:31)
[2018-12-28] MEDS ORDERED: OSELTAMIVIR PHOSPHATE 75 MG CAP PO SCH (09:00)
[2018-12-28] MEDS ORDERED: CARVEDILOL 6.25 MG TAB PO SCH (09:00)
[2018-12-28] MEDS: OSELTAMIVIR PHOSPHATE SUSP 30 MG/5 ML UDP PO SCH (10:00)
[2018-12-28] MEDS: CITALOPRAM 20 MG TAB PO SCH (10:35)
[2018-12-28] MEDS: DONEPEZIL HCL 10 MG TAB PO SCH (10:35)
[2018-12-28] MEDS ORDERED: LISINOPRIL 10 MG TAB PO SCH (11:30)
[2018-12-28] MEDS ORDERED: Nursing to Pharmacy Communication ONE (12:14)
--- NOTE | 2018-12-28 12:44 | Hospitalist Progress Note ---
Date of Service December 28, 2018 Assessment & Plan (1) Influenza A: Tamiflu started. Cont supportive care. (2) CAD (coronary artery disease): s/p CABG, no chest pain. Stable. Cont medical management including ASA, Coreg and Statin. (3) CKD (chronic kidney disease) stage 3, GFR 30-59 ml/min: baseline cr 15 to 1.6, creat is decreased to 1.98 today. Cont IVF. (4) GAVIN (acute kidney injury): as above. Cont to hold lisinopril. (5) Alzheimer's dementia: Lives with son, delirium present. Son at bedside. Discussed assessment and plan with him. (6) Renal cyst: Complex hemorrhagic cyst. Per Urology, he iwll need a dedicated contrast study as outpatient upon discharge. (7) CHF (congestive heart failure): Compensated. Not on diuretics regularly. IVF at this time given conservatively until appetite returns. (8) HTN (hypertension): Coreg and lisinopril-the latter held in setting of GAVIN. Cont coreg (9) Dyslipidemia: on statin Subjective 83 yo M with dementia presents with flu. ROS cannot be obtained in setting of delirium. Physical Exam Vital Signs (Past 24 Hours): Last Vital Signs Temp 37.1 C 12/28/18 07:42 Pulse 72 12/28/18 07:42 Resp 20 12/28/18 07:42 BP 126/59 L 12/28/18 07:42 Pulse Ox 93 12/28/18 07:42 CONSTITUTIONAL: WNWD, vitals as above, generally well-appearing EYES: normal conjuctivae, no scleral icterus ENT: MMM RESPIRATORY: clear to auscultation bilaterally, no crackles, rales or wheezes, normal respiratory effort CARDIOVASCULAR: regular rate and rhythm, S1 and 2 heard without murmurs, gallops or rubs, no JVD, no peripheral edema GASTROINTESTINAL: normal bowel sounds, soft, nontender, nondistended MUSCULOSKELETAL: strength 5/5 throughout, head is normocephalic and atraumatic SKIN: warm and dry NEUROLOGIC: CN 2-12 grossly intact, normal speech but not answering questions appropriately, hallucinating, disoriented but able to follow some instructions. Results & Data Laboratory Results Short CBC 12/27/18 12/28/18 Range/Units 18:21 02:33 WBC 9.62 8.18 (4.8-10.8) K/uL Hgb 12.0 L 10.7 L (14.0-18.0) g/dL Hct 37.6 L 33.4 L (42-52) % Plt Count 193 158 (130-400) K/uL BMP 12/27/18 12/28/18 18:21 02:33 Sodium 135 L 139 Potassium 4.7 4.3 Chloride 106 110 H Carbon Dioxide 23 21 BUN 29 H 27 H Creatinine 2.07 H 1.98 H Glucose 98 82 Calcium 8.9 7.7 L Cardiac Enzymes 12/27/18 Range/Units 18:21 Troponin I 0.021 (0-0.045) ng/ml Liver Function 12/27/18 Range/Units 18:21 Total Bilirubin 0.9 (0.2-1) mg/dl AST 25 (15-37) U/L ALT 21 (12-78) U/L Alkaline Phosphatase 39 L (45-117) U/L Albumin 3.3 L (3.4-5.0) gm/dl Medications Administered Current Inpatient Medications Acetaminophen (Tylenol) 650 mg PO Q4H PRN PRN Reason: pain/fever Stop: 01/26/19 22:32 Aspirin (Ecotrin Ectab) 81 mg PO QAM [facility] Stop: 01/27/19 08:59 Last Admin: 12/28/18 08:48 Dose: 81 mg Carvedilol (Coreg) 3.125 mg PO BID [facility] Stop: 01/27/19 20:59 Citalopram Hydrobromide (Celexa) 20 mg PO QDL JESSICA Stop: 01/27/19 11:29 Cyanocobalamin (Vitamin B-12) 1,000 mcg PO QAM [facility] Stop: 01/27/19 08:59 Last Admin: 12/28/18 08:47 Dose: 1,000 mcg Donepezil HCl (Aricept) 10 mg PO QDL [facility] Stop: 01/27/19 11:29 Fish Oil ([place]-3 (Purified Fish Oil)) 1 gm PO TIDM [facility] Stop: 01/27/19 07:59 Last Admin: 12/28/18 11:04 Dose: Not Given Sodium Chloride (Nss 1000ml) 1,000 mls @ 100 mls/hr IV .Q10H JESSICA Stop: 01/26/19 23:44 Last Admin: 12/28/18 08:56 Dose: 100 mls/hr Levalbuterol HCl (Xopenex 1.25mg/0.5ml Neb) 1.25 mg NEB Q4H PRN PRN Reason: Shortness Of Breath Or Wheezing Stop: 01/26/19 22:32 Lisinopril (Zestril) 10 mg PO QDL [facility] Stop: 01/27/19 11:29 Miscellaneous (Order Awaiting Action) 1 ea N/A QS [facility] Stop: 01/26/19 22:44 Last Admin: 12/28/18 08:48 Dose: 1 ea Ondansetron HCl (Zofran) 4 mg IV Q6H PRN PRN Reason: Nausea Stop: 01/26/19 22:32 Oseltamivir Phosphate (Tamiflu) 30 mg PO DAILY [facility]; Protocol Stop: 01/02/19 08:59 Rosuvastatin Calcium (Crestor) 20 mg PO HS [facility] Stop: 01/27/19 20:59 (1) CHF (congestive heart failure) Heart failure chronicity: chronic Heart failure type: combined systolic and diastolic Qualified Code(s): I50.42 - Chronic combined systolic (congestive) and diastolic (congestive) heart failure
--- NOTE | 2018-12-28 12:48 | Urology Consultation ---
Date of Consultation December 28, 2018 Assessment & Plan (1) Renal cyst: A/P: 83 yo M with possible complex cyst found on CT imaging. Imaging reviewed by Dr. Spencer Pt will require IV contrasted study to better evaluate when recovered from acute illness as an outpatient. No acute or worrisome findings on imaging. No indications for acute surgical intervention. Care d/w patient's son at bedside. Will arrange for outpatient f/u of his findings. Thank you for allowing us to participate in this patient's acute care. Please recall our service as needed with any questions or concerns. History of Present Illness Attending Physician: Lorri Parson DO History of Present Illness 83-year-old male with past medical history significant for CAD status post CABG, dyslipidemia, chronic kidney disease stage III, hypertension, Alzheimer's dementia admitted to hospital for fevers and symptoms of URI. Also noted to have emesis on admission prompting CT abd pelvis. Images personally reviewed, report noted. findings include renal cysts and nonobstructing stones as noted below. A 6 cm nonobstructing calculus is seen in the right lower pole, no left renal calculi are identified. Bilateral renal cysts measure up to 5 cm. A complex/hemorrhagic cyst on the left measures 10 mm Patient unable to give history due to dementia, history obtained from chart and son. Not established patient. called for incidental imaging findings and evaluation. Allergies Allergy/AdvReac Type Severity Reaction Status Date / Time Penicillins Allergy Unknown ANAPHYLAXIS Verified 12/27/18 18:18 Home Medications Home Medications Medication Instructions Recorded Confirmed Type aspirin 81 mg PO QAM 12/27/18 12/27/18 History carvedilol 6.25 mg PO BID 12/27/18 12/28/18 History citalopram [Celexa] 20 mg PO QDL 12/27/18 12/27/18 History cyanocobalamin (vitamin B-12) 1,000 mcg PO QAM 12/27/18 12/27/18 History [Vitamin B-12] donepezil [Aricept] 10 mg PO QDL 12/27/18 12/27/18 History fenofibrate micronized 134 mg PO QAM 12/27/18 12/27/18 History lisinopril 10 mg PO QDL 12/27/18 12/27/18 History omega 3-eml-rut-fish oil [Fish Oil] 1 cap PO TIDM 12/27/18 12/27/18 History rosuvastatin 20 mg PO HS 12/27/18 12/27/18 History Patient History Medical History Alzheimer's dementia CKD (chronic kidney disease) stage 3, GFR 30-59 ml/min Dyslipidemia CAD (coronary artery disease) Renal cyst Renal stone Surgical History Hx of cardiac cath Hx of CABG Family History Other Family history non-contributory Social History Current Living Situation: Other 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 Physical Exam Vital Signs (Past 24 Hours): Last Vital Signs Temp 37.1 C 12/28/18 07:42 Pulse 72 12/28/18 07:42 Resp 20 12/28/18 07:42 BP 126/59 L 12/28/18 07:42 Pulse Ox 93 12/28/18 07:42 Constitutional: + thin ENMT: Ears: no external ear abnormality Neck: trachea midline; no anterior neck swelling Respiratory: normal respiratory effort; does not use accessory muscles Cardiovascular: Vessels: radial pulses present Gastrointestinal (Abdomen): Percussion/Palpation: abdomen soft; abdomen nontender Skin: normal turgor Neurologic: + obtunded Psychiatric: Orientation: + not oriented to place Lymphatic: + lymphadenopathy Results & Data Laboratory Results Laboratory Results - last 48 hr 12/27/18 12/27/18 12/27/18 17:53 18:21 18:21 WBC 9.62 RBC 3.97 L Hgb 12.0 L Hct 37.6 L MCV 94.7 MCH 30.2 MCHC 31.9 L RDW Std Deviation 50.8 H RDW Coeff of Jeffrey 14.7 H Plt Count 193 MPV 9.8 Immature Gran % (Auto) 0.2 Neut % (Auto) 71.6 Lymph % (Auto) 8.4 Tyler % (Auto) 19.4 Eos % (Auto) 0.1 Baso % (Auto) 0.3 Immature Gran # (Auto) 0.02 Neut # (Auto) 6.88 H Lymph # (Auto) 0.81 L Tyler # (Auto) 1.87 H Eos # (Auto) 0.01 Baso # (Auto) 0.03 PT 10.8 INR 1.1 APTT 25.1 PTT Ratio 0.9 Sodium Potassium Chloride Carbon Dioxide Anion Gap BUN Creatinine Est Cr Clr Drug Dosing Est GFR ( Amer) Est GFR (Non-Af Amer) BUN/Creatinine Ratio Glucose Lactate Calcium Magnesium Total Bilirubin AST ALT Alkaline Phosphatase Troponin I Total Protein Albumin Globulin Albumin/Globulin Ratio Influenza Type A (PCR) Pos for Influ A A* Influenza Type B (PCR) Neg for Influ B 12/27/18 12/28/18 12/28/18 18:21 02:33 02:33 WBC 8.18 RBC 3.52 L Hgb 10.7 L Hct 33.4 L MCV 94.9 MCH 30.4 MCHC 32.0 RDW Std Deviation 52.3 H RDW Coeff of Jeffrey 15.1 H Plt Count 158 MPV 9.5 Immature Gran % (Auto) 0.2 Neut % (Auto) 59.7 Lymph % (Auto) 22.2 Tyler % (Auto) 17.6 Eos % (Auto) 0.1 Baso % (Auto) 0.2 Immature Gran # (Auto) 0.02 Neut # (Auto) 4.87 Lymph # (Auto) 1.82 Tyler # (Auto) 1.44 H Eos # (Auto) 0.01 Baso # (Auto) 0.02 PT INR APTT PTT Ratio Sodium 135 L 139 Potassium 4.7 4.3 Chloride 106 110 H Carbon Dioxide 23 21 Anion Gap 6.0 8.0 BUN 29 H 27 H Creatinine 2.07 H 1.98 H Est Cr Clr Drug Dosing Not Reportable Not Reportable Est GFR ( Amer) 33.3 35.2 Est GFR (Non-Af Amer) 28.8 30.3 BUN/Creatinine Ratio 13.9 13.8 Glucose 98 82 Lactate Calcium 8.9 7.7 L Magnesium 2.1 2.1 Total Bilirubin 0.9 AST 25 ALT 21 Alkaline Phosphatase 39 L Troponin I 0.021 Total Protein 7.5 Albumin 3.3 L Globulin 4.2 H Albumin/Globulin Ratio 0.8 L Influenza Type A (PCR) Influenza Type B (PCR) 12/28/18 02:33 WBC RBC Hgb Hct MCV MCH MCHC RDW Std Deviation RDW Coeff of Jeffrey Plt Count MPV Immature Gran % (Auto) Neut % (Auto) Lymph % (Auto) Tyler % (Auto) Eos % (Auto) Baso % (Auto) Immature Gran # (Auto) Neut # (Auto) Lymph # (Auto) Tyler # (Auto) Eos # (Auto) Baso # (Auto) PT INR APTT PTT Ratio Sodium Potassium Chloride Carbon Dioxide Anion Gap BUN Creatinine Est Cr Clr Drug Dosing Est GFR ( Amer) Est GFR (Non-Af Amer) BUN/Creatinine Ratio Glucose Lactate 1.1 Calcium Magnesium Total Bilirubin AST ALT Alkaline Phosphatase Troponin I Total Protein Albumin Globulin Albumin/Globulin Ratio Influenza Type A (PCR) Influenza Type B (PCR) Diagnostic Findings CT IMPRESSION: 1. Significantly suboptimal examination without oral and IV contrast. The examination is also compromised by streak and motion artifact. 2. There are no acute infectious or inflammatory findings in the abdomen or pelvis. 3. Mild to moderate colonic diverticulosis without CT evidence of acute diverticulitis. 4. Cardiomegaly. 5. Cholelithiasis. 6. Right-sided nephrolithiasis. 7. Additional findings as above.
[2018-12-28] MEDS ORDERED: LOPERAMIDE HCL 2 MG CAP PO STA ×2 (17:33→20:52)
[2018-12-28] MEDS: CARVEDILOL 6.25 MG TAB PO SCH (21:34)
[2018-12-28] MEDS: ROSUVASTATIN CALCIUM 20 MG TAB PO SCH (21:34)
[2018-12-29 06:44] LABS: Hematocrit (blood only) 33.1 % (42-52); Hemoglobin 10.4 g/dL (14.0-18.0); Mean Corpuscular Hgb Conc 31.4 g/dL (32-36); Mean Corpuscular Volume 95.7 fL (80-100); Platelet Count 152 K/uL (130-400); RDW Standard Deviation 52.6 fL (36.4-46.3); Red Blood Count 3.46 M/uL (4.7-6.1); White Blood Count 6.27 K/uL (4.8-10.8)
[2018-12-29 07:25] LABS: BUN Creatinine Ratio 18.2 (10-20); Calcium 7.5 mg/dl (8.5-10.1); Creatinine Clr Calc Pharmacy 35.5 ml/min; Est GFR (African American) 47.6; Est GFR (Non-African American) 41.1; Potassium 3.9 mmol/L (3.5-5.1)
[2018-12-29 07:29] LABS: Appearance Urine Clear (Clear); Bacteria Urine Automated Negative (Negative); Bilirubin Urine Negative (Negative); Blood Urine 1+ (Negative); Cast Urine Automated 0 /lpf (0-5); Color Urine Yellow; Epithelial Cell Urine Auto 0-5 /lpf (0-5); Glucose Urine UA Negative (Negative); Ketones Urine Negative (Negative); Leukocyte Esterase Urine Negative (Negative); Nitrite Urine Negative (Negative); Protein Urine Negative (Negative); RBC Urine Automated 0-4 /hpf (0-4); Specific Gravity Urine 1.022 (1.000-1.030); Urobilinogen Urine Negative (Negative)
[2018-12-29] MEDS: ASPIRIN 81 MG ECTAB PO SCH (08:30)
[2018-12-29] MEDS: CYANOCOBALAMIN 500 MCG TABLET (VITAMIN B-12) PO SCH (08:30)
[2018-12-29] MEDS: CARVEDILOL 6.25 MG TAB PO SCH ×2 (08:33→20:10)
[2018-12-29] MEDS: OSELTAMIVIR PHOSPHATE SUSP 30 MG/5 ML UDP PO SCH (08:35)
[2018-12-29] MEDS: FENOFIBRATE 134 MG PO SCH (08:36)
[2018-12-29] MEDS: OMEGA-3 (PURIFIED FISH OIL) 1 GM CAP PO SCH ×3 (08:37→14:51)
[2018-12-29] MEDS: SODIUM CHLORIDE 0.9% 1000ML 1,000 ML IV SCH (08:37)
[2018-12-29] MEDS: CITALOPRAM 20 MG TAB PO SCH (11:13)
[2018-12-29] MEDS: DONEPEZIL HCL 10 MG TAB PO SCH (11:13)
[2018-12-29] MEDS: ROSUVASTATIN CALCIUM 20 MG TAB PO SCH (20:08)
--- NOTE | 2018-12-29 21:42 | Hospitalist Progress Note ---
Date of Service December 29, 2018 Assessment & Plan (1) Influenza A: Cont Tamiflu (2) CAD (coronary artery disease): s/p CABG, no chest pain. Stable. Cont medical management including ASA, Coreg and Statin. (3) CKD (chronic kidney disease) stage 3, GFR 30-59 ml/min: baseline cr 15 to 1.6. Now improved to 1.5 today. Hold lisinopril another day and trend labwork in am. (4) Alzheimer's dementia: Delirium persistent, lives with son (5) Renal cyst: outpatient imaging with contrast per Urology. Son is aware. (6) CHF (congestive heart failure): compensated. Not on home diuretics. IVF were stopped. (7) GAVIN (acute kidney injury): Appears to be resolving as above (8) HTN (hypertension): on coreg and lisinopril holding lisinopril for gavin to give coreg with holding parameters as BP on lower side. (9) Dyslipidemia: on statin Subjective ROS is difficult to ascertain in setting of persistent delirium. Physical Exam Vital Signs (Past 24 Hours): Last Vital Signs Temp 36.9 C 12/29/18 14:17 Pulse 46 L 12/29/18 20:11 Resp 20 12/29/18 14:17 BP 147/57 H 12/29/18 20:11 Pulse Ox 97 12/29/18 14:17 CONSTITUTIONAL: WNWD, vitals as above, generally well-appearing EYES: normal conjuctivae, no scleral icterus ENT: MMM RESPIRATORY: clear to auscultation bilaterally, no crackles, rales or wheezes, normal respiratory effort CARDIOVASCULAR: regular rate and rhythm, S1 and 2 heard without murmurs, gallops or rubs, no JVD, no peripheral edema GASTROINTESTINAL: normal bowel sounds, soft, nontender, nondistended MUSCULOSKELETAL: strength 5/5 throughout, head is normocephalic and atraumatic SKIN: warm and dry NEUROLOGIC: CN 2-12 grossly intact, normal speech but not answering questions appropriately, hallucinating, disoriented but able to follow some instructions. Results & Data Laboratory Results Short CBC 12/29/18 Range/Units 06:21 WBC 6.27 (4.8-10.8) K/uL Hgb 10.4 L (14.0-18.0) g/dL Hct 33.1 L (42-52) % Plt Count 152 (130-400) K/uL BMP 12/29/18 06:21 Sodium 141 Potassium 3.9 Chloride 115 H Carbon Dioxide 19 L BUN 28 H Creatinine 1.54 H D Glucose 69 L Calcium 7.5 L Urine 12/29/18 Range/Units 05:35 Urine Color Yellow Urine Appearance Clear (Clear) Urine pH 5.0 (4.5-7.5) Ur Specific Lavinia 1.022 (1.000-1.030) Urine Protein Negative (Negative) Urine Glucose (UA) Negative (Negative) Medications Administered Current Inpatient Medications Acetaminophen (Tylenol) 650 mg PO Q4H PRN PRN Reason: pain/fever Stop: 01/26/19 22:32 Last Admin: 12/28/18 16:19 Dose: 650 mg Documented by: Aspirin (Ecotrin Ectab) [facility] Stop: 01/27/19 08:59 Last Admin: 12/29/18 08:30 Dose: 81 mg Documented by: Carvedilol (Coreg) 3.125 mg PO BID [facility] Stop: 01/27/19 20:59 Last Admin: 12/29/18 20:10 Dose: Not Given Documented by: Citalopram Hydrobromide (Celexa) 20 mg PO QDL [facility] Stop: 01/27/19 11:29 Last Admin: 12/29/18 11:13 Dose: 20 mg Documented by: Cyanocobalamin (Vitamin B-12) 1,000 mcg PO QAM [facility] Stop: 01/27/19 08:59 Last Admin: 12/29/18 08:30 Dose: 1,000 mcg Documented by: Donepezil HCl (Aricept) 10 mg PO QDL [facility] Stop: 01/27/19 11:29 Last Admin: 12/29/18 11:13 Dose: 10 mg Documented by: Fish Oil ([place]-3 (Purified Fish Oil)) 1 gm PO TIDM [facility] Stop: 01/27/19 07:59 Last Admin: 12/29/18 14:51 Dose: Not Given Documented by: Levalbuterol HCl (Xopenex 1.25mg/0.5ml Neb) 1.25 mg NEB Q4H PRN PRN Reason: Shortness Of Breath Or Wheezing Stop: 01/26/19 22:32 Lisinopril (Zestril) 10 mg PO QDL [facility] Stop: 01/27/19 11:29 Fenofibrate 134 Mg Cap: Non-Formulary Patient's Own Med 1 ea PO DAILY [facility]; Protocol Stop: 01/28/19 08:59 Last Admin: 12/29/18 08:36 Dose: 1 cap Documented by: Ondansetron HCl (Zofran) 4 mg IV Q6H PRN PRN Reason: Nausea Stop: 01/26/19 22:32 Oseltamivir Phosphate (Tamiflu) 30 mg PO DAILY [facility]; Protocol Stop: 01/02/19 08:59 Last Admin: 12/29/18 08:35 Dose: 30 mg Documented by: Rosuvastatin Calcium (Crestor) 20 mg PO HS [facility] Stop: 01/27/19 20:59 Last Admin: 12/29/18 20:08 Dose: 20 mg Documented by: (1) CHF (congestive heart failure) Heart failure chronicity: chronic Heart failure type: combined systolic and diastolic Qualified Code(s): I50.42 - Chronic combined systolic (congestive) and diastolic (congestive) heart failure
[2018-12-30 07:39] LABS: Hematocrit (blood only) 33.3 % (42-52); Hemoglobin 10.7 g/dL (14.0-18.0); Mean Corpuscular Hgb Conc 32.1 g/dL (32-36); Mean Corpuscular Volume 94.3 fL (80-100); Mean Platelet Volume 10.5 fL (7.4-10.4); Platelet Count 140 K/uL (130-400); RDW Coefficient of Variation 14.7 % (11.5-14.5); RDW Standard Deviation 50.1 fL (36.4-46.3); Red Blood Count 3.53 M/uL (4.7-6.1); White Blood Count 5.26 K/uL (4.8-10.8)
[2018-12-30 08:12] LABS: BUN Creatinine Ratio 17.1 (10-20); Calcium 7.7 mg/dl (8.5-10.1); Est GFR (African American) 51.7; Est GFR (Non-African American) 44.6
[2018-12-30] MEDS: CYANOCOBALAMIN 500 MCG TABLET (VITAMIN B-12) PO SCH (08:51)
[2018-12-30] MEDS: OMEGA-3 (PURIFIED FISH OIL) 1 GM CAP PO SCH ×3 (08:51→15:47)
[2018-12-30] MEDS: ASPIRIN 81 MG ECTAB PO SCH (08:51)
[2018-12-30] MEDS: FENOFIBRATE 134 MG PO SCH (08:53)
[2018-12-30] MEDS: CARVEDILOL 6.25 MG TAB PO SCH (08:54)
[2018-12-30] MEDS: DONEPEZIL HCL 10 MG TAB PO SCH (11:05)
[2018-12-30] MEDS: OSELTAMIVIR PHOSPHATE SUSP 30 MG/5 ML UDP PO SCH (11:05)
[2018-12-30] MEDS: CITALOPRAM 20 MG TAB PO SCH (11:05)
--- NOTE | 2018-12-30 16:01 | Hospitalist Progress Note ---
Date of Service December 30, 2018 Assessment & Plan (1) Influenza A: Improved, continue Tamiflu. It is evident he has persistently had some GI discomfort with course of flu, which is expected. There is no diarrhea present. Patient is hemodynamically stable and afebrile. (2) Delirium: Likely 2/2 infection vs sundowning in setting of hospitalization. (3) CAD (coronary artery disease): s/p CABG, no chest pain. Stable. Cont medical management including ASA, and statin. He has reliably been bradycardic and Coreg is contraindicated so this will be discontinued now. (4) CKD (chronic kidney disease) stage 3, GFR 30-59 ml/min: GAVIN admission with creatinine of 2, resolved. Continues to have a creatinine near baseline today of 1.44 (baseline cr 1.5 to 1.6) (5) Alzheimer's dementia: The patient lives alone, but has approximately 12 hours of home health nursing every day for assistance and son assist with him at night. The patient can ambulate with a cane/walker at baseline. 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 He is oriented to name and place at baseline. According to his son he is rather functional and son is not concerned with his judgment typically. The patient utilizes mom's meals and meals on wheel for most of his food and is a "good eater" per son. He continues to remain delirious in the setting of flu, which is not unexpected. We discussed the plan moving forward and son is not opposed to SNF temporarily at discharge. Continue Aricept. PT/OT evaluations. (6) Renal cyst: Complex hemorrhagic cyst was seen on the left side. This will require a contrasted reevaluation as an out and follow-up with urology. (7) CHF (congestive heart failure): Compensated, not requiring diuretics. IV fluids were stopped as p.o. intake increases. Continue to monitor for signs of dehydration. (8) HTN (hypertension): Lisinopril was held in setting of GAVIN, will restart this now. Coreg is contraindicated in setting of persistent bradycardia. This will be discontinued at discharge. Encouraged the patient son to have him reevaluated by cardiology as an outpatient for medication review. (9) Dyslipidemia: on statin (10) DVT prophylaxis: Heparin DNR Dispo-uncertain at this time. Son not opposed to short term SNF which is a good idea in patient with delirium who lives alone. Pending PT/OT evaluations today. Lorri Parson DO [facility] Hospitalist Subjective ROS could not be obtained 2/2 delirium, however, he doesn't appear in distress today and denies any pain. Per son at bedside, he is tolerating solid foods but not eating as much as he would at home. Physical Exam Vital Signs (Past 24 Hours): Last Vital Signs Temp 36.3 C L 12/30/18 15:33 Pulse 43 L 12/30/18 15:33 Resp 20 12/30/18 15:33 BP 167/70 H 12/30/18 15:33 Pulse Ox 97 12/30/18 15:33 CONSTITUTIONAL: WNWD, vitals as above, generally well-appearing EYES: normal conjuctivae, no scleral icterus ENT: MMM RESPIRATORY: clear to auscultation bilaterally, no crackles, rales or wheezes, normal respiratory effort CARDIOVASCULAR: regular rate and rhythm, S1 and 2 heard without murmurs, gallops or rubs, no JVD, no peripheral edema GASTROINTESTINAL: normal bowel sounds, soft, nontender, nondistended MUSCULOSKELETAL: strength 5/5 throughout, head is normocephalic and atraumatic SKIN: warm and dry NEUROLOGIC: CN 2-12 grossly intact, normal speech but not answering questions appropriately, hallucinating, disoriented but able to follow some instructions. Results & Data Laboratory Results Short CBC 12/30/18 Range/Units 06:57 WBC 5.26 (4.8-10.8) K/uL Hgb 10.7 L (14.0-18.0) g/dL Hct 33.3 L (42-52) % Plt Count 140 (130-400) K/uL [facility] 12/30/18 12/30/18 06:57 08:17 Sodium 141 Potassium 3.8 Chloride 115 H Carbon Dioxide 18 L BUN 25 H Creatinine 1.44 H Glucose 82 Calcium 7.7 L Medications Administered Current Inpatient Medications Acetaminophen (Tylenol) 650 mg PO Q4H PRN PRN Reason: pain/fever Stop: 01/26/19 22:32 Last Admin: 12/28/18 16:19 Dose: 650 mg Documented by: Aspirin (Ecotrin Ectab) 81 mg PO QAM [facility] Stop: 01/27/19 08:59 Last Admin: 12/30/18 08:51 Dose: 81 mg Documented by: Carvedilol (Coreg) 3.125 mg PO BID [facility] Stop: 01/27/19 20:59 Last Admin: 12/30/18 08:54 Dose: Not Given Documented by: Citalopram Hydrobromide (Celexa) 20 mg PO QDL [facility] Stop: 01/27/19 11:29 Last Admin: 12/30/18 11:05 Dose: 20 mg Documented by: Cyanocobalamin (Vitamin B-12) 1,000 mcg PO QAM [facility] Stop: 01/27/19 08:59 Last Admin: 12/30/18 08:51 Dose: 1,000 mcg Documented by: Donepezil HCl (Aricept) 10 mg PO QDL [facility] Stop: 01/27/19 11:29 Last Admin: 12/30/18 11:05 Dose: 10 mg Documented by: Fish Oil ([place]-3 (Purified Fish Oil)) 1 gm PO TIDM [facility] Stop: 01/27/19 07:59 Last Admin: 12/30/18 15:47 Dose: Not Given Documented by: Levalbuterol HCl (Xopenex 1.25mg/0.5ml Neb) 1.25 mg NEB Q4H PRN PRN Reason: Shortness Of Breath Or Wheezing Stop: 01/26/19 22:32 Lisinopril (Zestril) 10 mg PO QDL [facility] Stop: 01/27/19 11:29 Fenofibrate 134 Mg Cap: Non-Formulary Patient's Own Med 1 ea PO DAILY [facility]; Protocol Stop: 01/28/19 08:59 Last Admin: 12/30/18 08:53 Dose: 1 cap Documented by: Ondansetron HCl (Zofran) 4 mg IV Q6H PRN PRN Reason: Nausea Stop: 01/26/19 22:32 Oseltamivir Phosphate (Tamiflu) 30 mg PO DAILY [facility]; Protocol Stop: 01/02/19 08:59 Last Admin: 12/30/18 11:05 Dose: 30 mg Documented by: Rosuvastatin Calcium (Crestor) 20 mg PO HS [facility] Stop: 01/27/19 20:59 Last Admin: 12/29/18 20:08 Dose: 20 mg Documented by: (1) CHF (congestive heart failure) Heart failure chronicity: chronic Heart failure type: combined systolic and diastolic Qualified Code(s): I50.42 - Chronic combined systolic (congestive) and diastolic (congestive) heart failure
[2018-12-30] MEDS: ROSUVASTATIN CALCIUM 20 MG TAB PO SCH (20:13)
[2018-12-30] MEDS: HEPARIN SOD 5,000 UNIT/0.5 ML VIAL SQ SCH ×2 (20:13→22:36)
[2018-12-31] MEDS: HEPARIN SOD 5,000 UNIT/0.5 ML VIAL SQ SCH ×3 (05:14→20:37)
[2018-12-31] MEDS: OSELTAMIVIR PHOSPHATE SUSP 30 MG/5 ML UDP PO SCH ×2 (08:16→20:37)
[2018-12-31] MEDS: ASPIRIN 81 MG ECTAB PO SCH (08:17)
[2018-12-31] MEDS: CYANOCOBALAMIN 500 MCG TABLET (VITAMIN B-12) PO SCH (08:17)
[2018-12-31] MEDS: OMEGA-3 (PURIFIED FISH OIL) 1 GM CAP PO SCH ×3 (08:17→17:28)
[2018-12-31] MEDS: FENOFIBRATE 134 MG PO SCH (08:17)
[2018-12-31] MEDS: DONEPEZIL HCL 10 MG TAB PO SCH (11:22)
[2018-12-31] MEDS: CITALOPRAM 20 MG TAB PO SCH (11:22)
--- NOTE | 2018-12-31 12:53 | Hospitalist Progress Note ---
Date of Service December 31, 2018 Assessment & Plan (1) Influenza A: Cont Tamiflu (2) CAD (coronary artery disease): s/p CABG, no chest pain. Stable. Cont medical management including ASA, and statin. Bradycardia --Coreg discontinued (3) CKD (chronic kidney disease) stage 3, GFR 30-59 ml/min: improved to baseline, restart lisinopril (4) Alzheimer's dementia: no delirium today, still some isues overnight though. Mentating much better today and able to converse better. Clinically appears much improved. (5) Renal cyst: outpatient imaging with contrast per Urology. Son is aware. (6) CHF (congestive heart failure): compensated. Not on home diuretics. IVF were stopped. (7) GAVIN (acute kidney injury): Resolved. (8) HTN (hypertension): Coreg discontinued 2/2 bradycardia. Restart lisinopril. (9) Dyslipidemia: on statin (10) DVT prophylaxis: Heparin DNR Dispo-likely to home with HH and son in am. Lorri Parson DO [facility] Hospitalist Subjective Denies SOB, chest pain, pain or other issues today More oriented today Delirium overnight per son. Pt is eating more today Physical Exam Vital Signs (Past 24 Hours): Last Vital Signs Temp 36.9 C 12/31/18 07:24 Pulse 56 L 12/31/18 07:24 Resp 22 12/31/18 07:24 BP 144/64 H 12/31/18 07:24 Pulse Ox 95 12/31/18 07:24 CONSTITUTIONAL: WNWD, vitals as above, generally well-appearing, mentating better today, able to converse with me more. EYES: normal conjuctivae, no scleral icterus ENT: MMM RESPIRATORY: clear to auscultation bilaterally, no crackles, rales or wheezes, normal respiratory effort CARDIOVASCULAR: regular rate and rhythm, S1 and 2 heard without murmurs, gallops or rubs, no JVD, no peripheral edema GASTROINTESTINAL: normal bowel sounds, soft, nontender, nondistended MUSCULOSKELETAL: strength 5/5 throughout, head is normocephalic and atraumatic SKIN: warm and dry NEUROLOGIC: CN 2-12 grossly intact, normal speech, more oriented today. Improved Results & Data Medications Administered Current Inpatient Medications Acetaminophen (Tylenol) 650 mg PO Q4H PRN PRN Reason: pain/fever Stop: 01/26/19 22:32 Last Admin: 12/28/18 16:19 Dose: 650 mg Documented by: Aspirin (Ecotrin Ectab) 81 mg PO QAM [facility] Stop: 01/27/19 08:59 Last Admin: 12/31/18 08:17 Dose: 81 mg Documented by: Citalopram Hydrobromide (Celexa) 20 mg PO QDL [facility] Stop: 01/27/19 11:29 Last Admin: 12/31/18 11:22 Dose: 20 mg Documented by: Cyanocobalamin (Vitamin B-12) [facility] Stop: 01/27/19 08:59 Last Admin: 12/31/18 08:17 Dose: 1,000 mcg Documented by: Donepezil HCl (Aricept) 10 mg PO QDL [facility] Stop: 01/27/19 11:29 Last Admin: 12/31/18 11:22 Dose: 10 mg Documented by: Fish Oil ([place]-3 (Purified Fish Oil)) 1 gm PO TIDM [facility] Stop: 01/27/19 07:59 Last Admin: 12/31/18 11:08 Dose: Not Given Documented by: Heparin Sodium (Porcine) (Heparin Sodium (Porcine)) 5,000 units SQ Q8 [facility] Stop: 01/29/19 21:59 Last Admin: 12/31/18 05:14 Dose: Not Given Documented by: Levalbuterol HCl (Xopenex 1.25mg/0.5ml Neb) 1.25 mg NEB Q4H PRN PRN Reason: Shortness Of Breath Or Wheezing Stop: 01/26/19 22:32 Lisinopril (Zestril) 10 mg PO QDL [facility] Stop: 01/27/19 11:29 Last Admin: 12/31/18 10:28 Dose: Not Given Documented by: Fenofibrate 134 Mg Cap: Non-Formulary Patient's Own Med 1 ea PO DAILY [facility]; Protocol Stop: 01/28/19 08:59 Last Admin: 12/31/18 08:17 Dose: 1 cap Documented by: Ondansetron HCl (Zofran) 4 mg IV Q6H PRN PRN Reason: Nausea Stop: 01/26/19 22:32 Oseltamivir Phosphate (Tamiflu) 30 mg PO BID [facility]; Protocol Stop: 01/01/19 21:01 Rosuvastatin Calcium (Crestor) 20 mg PO [facility] Stop: 01/27/19 20:59 Last Admin: 12/30/18 20:13 Dose: 20 mg Documented by: (1) CHF (congestive heart failure) Heart failure chronicity: chronic Heart failure type: combined systolic and diastolic Qualified Code(s): I50.42 - Chronic combined systolic (congestive) and diastolic (congestive) heart failure
[2018-12-31] MEDS: ROSUVASTATIN CALCIUM 20 MG TAB PO SCH (20:37)
[2019-01-01 06:16] LABS: Hematocrit (blood only) 34.8 % (42-52); Hemoglobin 11.2 g/dL (14.0-18.0); Mean Corpuscular Hgb Conc 32.2 g/dL (32-36); Mean Corpuscular Volume 93.8 fL (80-100); Mean Platelet Volume 10.3 fL (7.4-10.4); Platelet Count 162 K/uL (130-400); RDW Coefficient of Variation 14.2 % (11.5-14.5); RDW Standard Deviation 48.7 fL (36.4-46.3); Red Blood Count 3.71 M/uL (4.7-6.1); White Blood Count 5.82 K/uL (4.8-10.8)
[2019-01-01] MEDS: HEPARIN SOD 5,000 UNIT/0.5 ML VIAL SQ SCH (06:42)
[2019-01-01 06:54] LABS: BUN Creatinine Ratio 14.6 (10-20); Calcium 8.2 mg/dl (8.5-10.1); Creatinine Clr Calc Pharmacy 44.4 ml/min; Est GFR (African American) 62.5
[2019-01-01] MEDS: OSELTAMIVIR PHOSPHATE SUSP 30 MG/5 ML UDP PO SCH (08:46)
[2019-01-01] MEDS: FENOFIBRATE 134 MG PO SCH (08:47)
[2019-01-01] MEDS: OMEGA-3 (PURIFIED FISH OIL) 1 GM CAP PO SCH ×2 (08:48→12:23)
[2019-01-01] MEDS: CYANOCOBALAMIN 500 MCG TABLET (VITAMIN B-12) PO SCH (08:48)
[2019-01-01] MEDS: ASPIRIN 81 MG ECTAB PO SCH (08:48)
[2019-01-01] MEDS ORDERED: LISINOPRIL 10 MG TAB PO SCH (09:00)
[2019-01-01] MEDS: DONEPEZIL HCL 10 MG TAB PO SCH (12:23)
[2019-01-01] MEDS: CITALOPRAM 20 MG TAB PO SCH (12:23)
--- NOTE | 2019-01-01 13:49 | Discharge Summary ---
Date of Service January 01, 2019 Admission HPI Per Admitting Provider This is a 83-year-old male with past medical history significant for CAD status post CABG, dyslipidemia, chronic kidney disease stage III, hypertension, Alzheimer's dementia with recurrent oriented to name only and and can recognize his son and who lives with his son was brought in because of fever cough and weakness. Patient was having the symptoms started yesterday but really got worse today. Patient generally ambulates with the help of cane at home but today he was not able to get up from the bed. Dry cough. No nausea or vomiting. No diarrhea. Generally able to eat regular diet. Patient is alert and awake. Answers simple questions. Denies any headache. No earaches or runny nose. No sore throat. Denies nausea. Denies chest pain or shortness of breath. No abdominal pain. Cannot get any rest of the review of symptoms as patient has severe dementia. Currently resting comfortably and hemodynamically stable. Admission Exam Per Admitting Provider Temp 37.7 C H 12/27/18 21:54 Pulse 52 L 12/27/18 21:54 Resp 20 12/27/18 21:54 BP 89/46 L 12/27/18 21:54 Pulse Ox 96 12/27/18 21:54 Physical Exam: General- Not in distress Head- atraumatic Eyes- PERRL,No pallor, anicteric ENT- oropharynx clear,Dry Neck- supple, no JVD, no adenopathy, carotids +2/2, no bruits appreciated Lungs- clear to auscultation and percussion, No wheezing or crackles Heart- S1 and s2 heard regular rhythm; no murmur Abdomen- normal bowel sounds, soft, nontender, no masses no distension Extremities- no pretibial edema, no erythema Neuro- alert, awake ; PERRL,EOMI, no facial palsy; no dysarthria; Moves extremities Skin- warm & dry Principal Diagnosis influenza A Dementia Delirium-resolved HTN GAVIN in setting of Stage III CKD-resolved Discharge Data Allergies Allergy/AdvReac Type Severity Reaction Status Date / Time Penicillins Allergy Unknown ANAPHYLAXIS Verified 12/27/18 18:18 Consultations 12/27/18 19:56 ED Decision to Admit Stat 12/27/18 22:33 Consult Case Management - Discharge Planning Routine 12/28/18 08:00 Consult Urology Routine Ordered Studies 12/27/18 17:45 CT abd pelvis wo con Stat CT head/brain wo con Stat Hospital Course (1) Influenza A: (2) CAD (coronary artery disease): (3) CKD (chronic kidney disease) stage 3, GFR 30-59 ml/min: (4) Alzheimer's dementia: (5) Renal cyst: (6) CHF (congestive heart failure): (7) GAVIN (acute kidney injury): (8) HTN (hypertension): (9) Dyslipidemia: 83-year-old man with dementia presented with influenza symptoms found to have influenza A. He was started on Tamiflu and admitted to the Hospitalist service. Lab work revealed white blood cell count 8K, H&H 10.7/33.4, BUN 27, creatinine 1.98 with a baseline 1.4 on lisinopril. Electrolytes were otherwise normal. CT scan of the brain was performed for questionable change in mental status and revealed no acute hemorrhage, mass-effect or evidence of to acute territorial ischemia. A single view chest x-ray was performed revealing cardiomegaly with no acute cardiopulmonary abnormality. A CT scan of the abdomen pelvis without IV contrast was performed with a history of vomiting. This revealed no acute infectious or inflammatory findings. He was admitted to the hospitalist service. He became febrile initially which resolved with supportive care over the next 24-48 hours. He did become delirious and this lasted approximately 2-3 days. Delirium resolved prior to discharge. His son with whom he lives stayed in the hospital with him every day and night that he was here. Of note a renal cyst was noted on imaging that was complex in nature therefore, urology was consulted. Viewed by Dr. Spencer who recommended a an IV contrasted study to better evaluate this area when he recovers from his acute illness as an outpatient. His GAVIN recovered with IV fluids and hydration on Tamiflu and resolved to his baseline of approximately 1.4. During his hospitalization his lisinopril was held because of his GAVIN and was restarted just prior to discharge. It should be noted that sinus bradycardia was con sistently seen while hospitalized, therefore, carvedilol was discontinued. Total Time Total Time Spent Total Time Spent (In Minutes): 60 Total Time Includes: Examination of the Patient, Discharge Planning, Medication Reconciliation, Communication With Other Providers and Other (setup followup) Discharge Plan Discharge Items Patient Disposition: Home - Home Health Services Reason For Visit: COUGH,FEVER Discharge Diagnosis: influenza A Dementia Delirium-resolved HTN GAVIN in setting of Stage III CKD-resolved Condition: Good Discharge Goals: Improve disease control, Improve function and Increase independence Activity: Resume your previous activity Non-emergency contact: Primary Care Provider Call non-emergency contact if: you have any medication questions, your symptoms worsen, your pain is not controlled, your pain is worsening, your pain is unusual for you, your pain is concerning for you and you have a fever Follow-up/Referrals: Donn Spencer II, DO [Physician] - Orestes Wesley MD [Primary Care Provider] - Diet: Regular Addtl Provider Instructions: Please take all medications as instructed below. It is recommended to follow-up with your Reconsignment Clerk for a medication review. It is recommended to follow-up with your primary care physician within one week of discharge. You have the following time set up: Date & Time 01/11/2019 4:00 PM Provider Orestes Wesley MD Department Internal Medicine [facility] You were found to have a complex cyst in your kidney which will require further imaging with contrast. This may be ordered by your primary care physician on follow-up, or by your Urologist. This study should be performed within the next couple of weeks. You were seen by Dr. Donn Spencer from the Urology [facility] while in the hospital. His office should be contacting you with a time and date for follow- up with him post-discharge regarding the complex hemorrhagic cyst of the kidney mentioned above. It was a pleasure taking care of you! Please call if you have any questions or problems. You can reach a [facility] hospitalist on duty at [facility] 24 hours a day by calling [phone]. Take care of yourself. Lorri Parson DO [facility] Hospitalist Prescriptions: New cholecalciferol (vitamin D3) 1,000 unit capsule 1,000 units PO DAILY Qty: 90 RF: 1 Continued donepezil [Aricept] 10 mg Tablet 10 mg PO QDL RF: 0 cyanocobalamin (vitamin B-12) [Vitamin B-12] 1,000 mcg Tablet 1,000 mcg PO QAM RF: 0 aspirin 81 mg Tablet,Delayed Release (Dr/Ec) 81 mg PO QAM RF: 0 fenofibrate micronized 134 mg Capsule 134 mg PO QAM RF: 0 citalopram [Celexa] 20 mg Tablet 20 mg PO QDL RF: 0 lisinopril 10 mg Tablet 10 mg PO QDL RF: 0 rosuvastatin 40 mg Tablet 20 mg PO HS RF: 0 omega 3-mzi-hxp-fish oil [Fish Oil] 1,000 mg (120 mg-180 mg) Capsule 1 cap PO TIDM RF: 0 Discontinued carvedilol 6.25 mg Tablet 6.25 mg PO BID RF: 0 Stand-Alone Forms: [facility] Discharge Orders: Discharge Order (Routine); Ordered 01/01/19 Ordered By: Lorri Parson Admission Data Admit Date/Time: 12/27/18 21:20 Attending Provider: Lorri Parson Admit Provider: Romeo Parks Primary Care Provider: Orestes Wesley Other Providers: Romeo Parks ; Donn Spencer II Service: Medical Other Interventions: Discharge Summary Assessment (RN) Last Done: 01/01/19 13:32 DC Date/Time DO NOT enter until pt leaves facility: 01/01/19 14:36
== END 2019-01-01 14:36 | disposition home health service (06) | DRG 194 ==
LOC: ED 16:57 → 4E 21:20
DX: F02.80 Dementia in other diseases classified elsewhere, unspecified severity, without behavioral disturbance, psychotic disturbance, mood disturbance, and anxiety; N20.0 Calculus of kidney; N28.1 Cyst of kidney, acquired; Z95.1 Presence of aortocoronary bypass graft; Z88.0 Allergy status to penicillin; I25.10 Atherosclerotic heart disease of native coronary artery without angina pectoris; N18.3 Chronic kidney disease, stage 3 (moderate); G30.9 Alzheimer's disease, unspecified; Z79.82 Long term (current) use of aspirin; J10.1 Influenza due to other identified influenza virus with other respiratory manifestations; E78.5 Hyperlipidemia, unspecified; I12.9 Hypertensive chronic kidney disease with stage 1 through stage 4 chronic kidney disease, or unspecified chronic kidney disease; N17.9 Acute kidney failure, unspecified; E86.0 Dehydration; I50.42 Chronic combined systolic (congestive) and diastolic (congestive) heart failure

== ENCOUNTER 2020-08-02 16:51 | Observation (INO) ==
--- OUTSIDE RECORDS SUMMARY | 2020-08-02 16:54 | External Medical Summary | Continuity of Care Document ---
:1935 Author Name Anjel Kim, Provider Address Unavailable Unavailable , Care Team Providers Name Role Phone Becka Méndez Unavailable [email or web address] PCP, UNKNOWN Unavailable Unavailable Problems Active medical history not documented Allergies and Adverse Reactions Allergy history not documented Medications Medications not documented Procedures Procedures not documented Immunizations Immunizations not documented Plan of Treatment Planned Observations Planned Goals not documented Results No Known Results Results not documented
--- NOTE | 2020-08-02 17:34 | Emergency Department Note ---
History of Present Illness General Chief complaint: Altered Mental Status Stated complaint: CONFUSION, WEAKNESS, AGITATION, DIARRHEA Time Seen by Provider: 08/02/20 17:25 Source: patient Mode of arrival: ambulatory Limitations: no limitations History of Present Illness This patient is an 85-year-old white male has history of dementia and other medical problems, comes in after having increased confusion and agitation that is been worse over the last couple days. He is may have had some diarrhea as well. He does live at home. He is unable to give any further history. Apparently at baseline he is oriented x1. His son did show up as a said that he tends to get confused when he gets sick. One of the caregivers did have a little bit of a cough apparently but no known exposure to COVID. Home Medications Home Medications Medication Instructions Recorded Confirmed Type aspirin 81 mg PO QAM 12/27/18 08/02/20 History citalopram [Celexa] 20 mg PO QDL 12/27/18 08/02/20 History donepezil [Aricept] 10 mg PO QDL 12/27/18 08/02/20 History lisinopril 10 mg PO QDL 12/27/18 08/02/20 History azithromycin [Zithromax Z-Randy] 250 mg PO DAILY 08/02/20 08/02/20 History esomeprazole magnesium [Nexium] 20 mg PO DAILY 08/02/20 08/02/20 History memantine [Namenda] 5 mg PO BID 08/02/20 08/02/20 History Allergies Allergy/AdvReac Type Severity Reaction Status Date / Time Penicillins Allergy Unknown ANAPHYLAXIS Verified 08/02/20 22:03 Past Med/Surg History Medical History Alzheimer's dementia CAD (coronary artery disease) CKD (chronic kidney disease) stage 3, GFR 30-59 ml/min Dyslipidemia Renal cyst Renal stone Surgical History Hx of CABG Hx of cardiac cath Family History Other Family history non-contributory Social History Smoking Status: Never smoker Second Hand Exposure: No; Hx Alcohol Use: No Hx Substance Use: No Preferred Language: Cameroonian Communication Ability: Effective Sleeve Ironer Required: No Beliefs That Will Affect Care: None Current Living Situation: Family Current Living Situation Comment: 24 hour care Feels Safe at Home: Yes Assistive Devices: Glasses, Walker and Wheelchair Review of Systems Unobtainable due to cognitive status Physical Exam Vital Signs Vital Signs - 24 hr 08/02/20 16:53 08/02/20 16:56 08/02/20 17:21 Temperature 37.2 C Temperature Source Oral Pulse Rate 55 L 54 L 55 L Pulse Rate [Apical] Pulse Rate from SpO2 Sensor 55 L 55 L Pulse Rhythm Regular Pulse Rhythm [Apical] Pulse Strength Normal Respiratory Rate 18 22 26 H Respiratory Effort / Characteristics Non-Labored Respiratory Depth Normal Respiratory Pattern Regular Blood Pressure 148/59 H 148/59 H Blood Pressure [Right Arm] Blood Pressure Mean 88 79 Blood Pressure Mean [Right Arm] Blood Pressure Position Lying Pulse Oximetry 94 94 93 Oxygen Delivery Method Room Air Sepsis Recent Fever Within 48 Hours No Sepsis New/Unexplained Change in Mental Status No Sepsis Action Taken by Nursing No Action Required 08/02/20 17:30 08/02/20 17:45 08/02/20 17:59 Temperature Temperature Source Pulse Rate 53 L 58 L Pulse Rate [Apical] Pulse Rate from SpO2 Sensor 53 L 59 L Pulse Rhythm Pulse Rhythm [Apical] Pulse Strength Respiratory Rate 20 28 H 20 Respiratory Effort / Characteristics Non-Labored Respiratory Depth Normal Respiratory Pattern Blood Pressure Blood Pressure [Right Arm] Blood Pressure Mean Blood Pressure Mean [Right Arm] Blood Pressure Position Pulse Oximetry 93 97 95 Oxygen Delivery Method Room Air Room Air Room Air Sepsis Recent Fever Within 48 Hours Sepsis New/Unexplained Change in Mental Status Sepsis Action Taken by Nursing 08/02/20 18:00 08/02/20 18:02 08/02/20 18:15 Temperature Temperature Source Pulse Rate 54 L 55 L Pulse Rate [Apical] Pulse Rate from SpO2 Sensor 54 L 55 L Pulse Rhythm Pulse Rhythm [Apical] Pulse Strength Respiratory Rate 23 20 23 Respiratory Effort / Characteristics Respiratory Depth Respiratory Pattern Blood Pressure Blood Pressure [Right Arm] Blood Pressure Mean Blood Pressure Mean [Right Arm] Blood Pressure Position Pulse Oximetry 94 95 96 Oxygen Delivery Method Room Air Room Air Sepsis Recent Fever Within 48 Hours Sepsis New/Unexplained Change in Mental Status Sepsis Action Taken by Nursing 08/02/20 18:27 08/02/20 18:30 08/02/20 18:45 Temperature Temperature Source Pulse Rate 53 L 53 L 52 L Pulse Rate [Apical] Pulse Rate from SpO2 Sensor 53 L 52 L 53 L Pulse Rhythm Pulse Rhythm [Apical] Pulse Strength Respiratory Rate 24 24 16 Respiratory Effort / Characteristics Respiratory Depth Respiratory Pattern Blood Pressure 135/63 130/61 124/53 L Blood Pressure [Right Arm] Blood Pressure Mean 101 87 67 Blood Pressure Mean [Right Arm] Blood Pressure Position Pulse Oximetry 97 97 96 Oxygen Delivery Method Sepsis Recent Fever Within 48 Hours Sepsis New/Unexplained Change in Mental Status Sepsis Action Taken by Nursing 08/02/20 19:00 08/02/20 19:15 08/02/20 19:30 Temperature Temperature Source Pulse Rate 58 L 52 L 57 L Pulse Rate [Apical] Pulse Rate from SpO2 Sensor 57 L 53 L 57 L Pulse Rhythm Pulse Rhythm [Apical] Pulse Strength Respiratory Rate 19 20 23 Respiratory Effort / Characteristics Respiratory Depth Respiratory Pattern Blood Pressure 121/55 L 131/75 Blood Pressure [Right Arm] Blood Pressure Mean 89 106 Blood Pressure Mean [Right Arm] Blood Pressure Position Pulse Oximetry 95 96 96 Oxygen Delivery Method Sepsis Recent Fever Within 48 Hours Sepsis New/Unexplained Change in Mental Status Sepsis Action Taken by Nursing 08/02/20 19:32 08/02/20 19:45 08/02/20 20:00 Temperature Temperature Source Pulse Rate 60 57 L Pulse Rate [Apical] Pulse Rate from SpO2 Sensor 60 58 L Pulse Rhythm Pulse Rhythm [Apical] Pulse Strength Respiratory Rate 20 22 Respiratory Effort / Characteristics Non-Labored Respiratory Depth Respiratory Pattern Blood Pressure 125/67 134/66 Blood Pressure [Right Arm] Blood Pressure Mean 93 86 Blood Pressure Mean [Right Arm] Blood Pressure Position Pulse Oximetry 94 95 Oxygen Delivery Method Sepsis Recent Fever Within 48 Hours Sepsis New/Unexplained Change in Mental Status Sepsis Action Taken by Nursing 08/02/20 20:15 08/02/20 20:30 08/02/20 20:41 Temperature Temperature Source Pulse Rate 62 60 Pulse Rate [Apical] 59 L Pulse Rate from SpO2 Sensor 62 60 Pulse Rhythm Pulse Rhythm [Apical] Regular Pulse Strength Respiratory Rate 22 22 22 Respiratory Effort / Characteristics Non-Labored Respiratory Depth Normal Respiratory Pattern Blood Pressure 136/61 135/69 Blood Pressure [Right Arm] 135/69 Blood Pressure Mean 78 87 Blood Pressure Mean [Right Arm] 91 Blood Pressure Position Pulse Oximetry 96 94 93 Oxygen Delivery Method Room Air Sepsis Recent Fever Within 48 Hours Sepsis New/Unexplained Change in Mental Status Sepsis Action Taken by Nursing 08/02/20 20:42 08/02/20 20:45 08/02/20 20:56 Temperature Temperature Source Pulse Rate 58 L 55 L Pulse Rate [Apical] Pulse Rate from SpO2 Sensor 58 L 55 L Pulse Rhythm Pulse Rhythm [Apical] Pulse Strength Respiratory Rate 22 17 19 Respiratory Effort / Characteristics Non-Labored Respiratory Depth Respiratory Pattern Blood Pressure 143/69 H 143/69 H Blood Pressure [Right Arm] Blood Pressure Mean 90 90 Blood Pressure Mean [Right Arm] Blood Pressure Position Pulse Oximetry 93 94 96 Oxygen Delivery Method Room Air Sepsis Recent Fever Within 48 Hours Sepsis New/Unexplained Change in Mental Status Sepsis Action Taken by Nursing 08/02/20 21:00 Temperature Temperature Source Pulse Rate 54 L Pulse Rate [Apical] Pulse Rate from SpO2 Sensor 54 L Pulse Rhythm Pulse Rhythm [Apical] Pulse Strength Respiratory Rate 28 H Respiratory Effort / Characteristics Respiratory Depth Respiratory Pattern Blood Pressure 133/67 Blood Pressure [Right Arm] Blood Pressure Mean 93 Blood Pressure Mean [Right Arm] Blood Pressure Position Pulse Oximetry 89 L Oxygen Delivery Method Sepsis Recent Fever Within 48 Hours Sepsis New/Unexplained Change in Mental Status Sepsis Action Taken by Nursing General: Well developed well nourished older male who in no acute distress, breathing comfortably on room air. Normal speech. He does not typically answer most questions but he opens his eyes and gets mildly agitated when I try to examine him. He appears to move in all 4 extremities. His speech is nonslurred HEENT: Normal cephalic atraumatic. Pupils are equal round and reactive to light. Extraocular movements are intact. Oropharynx is pink with moist mucous membranes. No swelling of the mouth lips or tongue. Neck: Supple with a midline trachea. No meningeal signs or stiffness, no JVD or bruits. No Stridor. Chest: Clear to auscultation bilaterally. No wheezes or rhonchi. No increased work of breathing. Scar from previous surgery Heart: Regular rate and rhythm without murmurs or gallops. Abdomen: Soft nontender, nondistended without rebound guarding or rigidity. Extremities: No cyanosis clubbing or edema. No calf tenderness or assymetry Spine/Back. Non tender to palpation. No CVA tenderness Skin: Good turgor without rashes. Neurologic exam: Cranial nerves two through 12 are intact. Motor and sensation are intact and symmetrical throughout. Course Administered Medications Dextrose/Sodium Chloride (D5w And Nss) 1,000 mls @ 80 mls/hr IV .[id number] JESSICA Stop: 09/01/20 22:21 Last Admin: 08/02/20 22:36 Dose: 80 mls/hr Documented by: [id number] Discontinued Medications Levofloxacin/Dextrose (Levaquin/D5w) 500 mg in 100 mls @ 100 mls/hr IV NOW STA Stop: 08/02/20 20:20 Last Infusion: 08/02/20 20:38 Dose: 0 mls/hr Documented by: [id number] Admin: 08/02/20 19:38 Dose: 100 mls/hr Documented by: [id number] Critical Care Time Critical Care Time: Yes Total Critical Care Time: 30 I have personally spent greater than 30 minutes of critical care time in the direct management of this patient. This includes bedside care, interpretation of diagnostic studies, and testing, discussion with consultants, patient, and family members, and other required patient management activities. This 30 minutes is in excess of all separately billable procedures. Medical Decision Making Differential Diagnosis Sepsis, UTI, intracranial hemorrhage, CHF, pneumonia, meningitis, Celia, electrolyte or metabolic abnormality Medical Records Attestation: I reviewed the patient's medical records. Home Medications Current Medication List: was personally reviewed by me Laboratory Data Attestation: I reviewed the patient's lab results. Result diagrams: 08/02/20 17:40 08/02/20 17:40 Lab Results 08/02/20 08/02/20 08/02/20 Range/Units 17:40 17:40 17:40 WBC 8.74 (4.8-10.8) K/uL RBC 3.94 L (4.7-6.1) M/uL Hgb 11.4 L (14.0-18.0) g/dL Hct 38.4 L (42-52) % MCV 97.5 (80-100) fL MCH 28.9 (25-34) pg MCHC 29.7 L (32-36) g/dL RDW Std Deviation 53.9 H (36.4-46.3) fL RDW Coeff of Jeffrey 15.1 H (11.5-14.5) % Plt Count 223 (130-400) K/uL MPV 10.4 (7.4-10.4) fL Immature Gran % (Auto) 0.2 % Neut % (Auto) 49.8 % Lymph % (Auto) 23.7 % [place] % (Auto) 23.0 % Eos % (Auto) 3.1 % Baso % (Auto) 0.2 % Neut # (Auto) 4.35 (1.4-6.5) K/uL Lymph # (Auto) 2.07 (1.2-3.4) K/uL [place] # (Auto) 2.01 H (0.11-0.59) K/uL Eos # (Auto) 0.27 (0-0.5) K/uL Baso # (Auto) 0.02 (0-0.2) K/uL Immature Gran # (Auto) 0.02 (0.00-0.02) K/uL PT 10.7 (9.0-12.0) Seconds INR 1.0 (0.9-1.1) APTT 27.8 (21.0-31.0) Seconds PTT Ratio 1.0 Sodium 140 (136-145) mmol/L Potassium 4.0 (3.5-5.1) mmol/L Chloride 110 H (98-107) mmol/L Carbon Dioxide 24 (21-32) mmol/L Anion Gap 6.0 (3-11) BUN 16 (7-18) mg/dl Creatinine 1.66 H (0.6-1.4) mg/dl Est Cr Clr Drug Dosing 32.5 ml/min Est GFR ( Amer) 42.9 Est GFR (Non-Af Amer) 37.0 BUN/Creatinine Ratio 9.4 L (10-20) Glucose 82 (70-99) mg/dl Lactate (0.4-2.0) mmol/L Calcium 8.7 (8.5-10.1) mg/dl Magnesium 2.1 (1.8-2.4) mg/dl Total Bilirubin 1.0 (0.2-1) mg/dl AST 21 (15-37) U/L ALT 19 (12-78) U/L Alkaline Phosphatase 57 (45-117) U/L Troponin I < 0.015 (0-0.045) ng/ml Total Protein 7.1 (6.4-8.2) gm/dl Albumin 3.0 L (3.4-5.0) gm/dl Globulin 4.1 H (2.5-4.0) gm/dl Albumin/Globulin Ratio 0.7 L (0.9-2) Urine Color Urine Appearance (Clear) Urine pH (4.5-7.5) Ur Specific [place] (1.000-1.030) Urine Protein (Negative) Urine Glucose (UA) (Negative) Urine Ketones (Negative) Urine Blood (Negative) Urine Nitrite (Negative) Urine Bilirubin (Negative) Urine Urobilinogen (Negative) Ur Leukocyte Esterase (Negative) Urine WBC (Auto) (0-5) /hpf Urine RBC (Auto) (0-4) /hpf U Hyaline Cast (Auto) (0-5) /lpf U Epithel Cells (Auto) (0-5) /lpf Urine Bacteria (Auto) (Negative) COVID-19 Eval Order COVID-19 PCR (Negative) 08/02/20 08/02/20 08/02/20 Range/Units 17:40 19:27 19:27 WBC (4.8-10.8) K/uL RBC (4.7-6.1) M/uL Hgb (14.0-18.0) g/dL Hct (42-52) % MCV (80-100) fL MCH (25-34) pg MCHC (32-36) g/dL RDW Std Deviation (36.4-46.3) fL RDW Coeff of Jeffrey (11.5-14.5) % Plt Count (130-400) K/uL MPV (7.4-10.4) fL Immature Gran % (Auto) % Neut % (Auto) % Lymph % (Auto) % [place] % (Auto) % Eos % (Auto) % Baso % (Auto) % Neut # (Auto) (1.4-6.5) K/uL Lymph # (Auto) (1.2-3.4) K/uL [place] # (Auto) (0.11-0.59) K/uL Eos # (Auto) (0-0.5) K/uL Baso # (Auto) (0-0.2) K/uL Immature Gran # (Auto) (0.00-0.02) K/uL PT (9.0-12.0) Seconds INR (0.9-1.1) APTT (21.0-31.0) Seconds PTT Ratio Sodium (136-145) mmol/L Potassium (3.5-5.1) mmol/L Chloride (98-107) mmol/L Carbon Dioxide (21-32) mmol/L Anion Gap (3-11) BUN (7-18) mg/dl Creatinine (0.6-1.4) mg/dl Est Cr Clr Drug Dosing ml/min Est GFR ( Amer) Est GFR (Non-Af Amer) BUN/Creatinine Ratio (10-20) Glucose (70-99) mg/dl Lactate 1.8 (0.4-2.0) mmol/L Calcium (8.5-10.1) mg/dl Magnesium (1.8-2.4) mg/dl Total Bilirubin (0.2-1) mg/dl AST (15-37) U/L ALT (12-78) U/L Alkaline Phosphatase (45-117) U/L Troponin I (0-0.045) ng/ml Total Protein (6.4-8.2) gm/dl Albumin (3.4-5.0) gm/dl Globulin (2.5-4.0) gm/dl Albumin/Globulin Ratio (0.9-2) Urine Color Urine Appearance (Clear) Urine pH (4.5-7.5) Ur Specific [place] (1.000-1.030) Urine Protein (Negative) Urine Glucose (UA) (Negative) Urine Ketones (Negative) Urine Blood (Negative) Urine Nitrite (Negative) Urine Bilirubin (Negative) Urine Urobilinogen (Negative) Ur Leukocyte Esterase (Negative) Urine WBC (Auto) (0-5) /hpf Urine RBC (Auto) (0-4) /hpf U Hyaline Cast (Auto) (0-5) /lpf U Epithel Cells (Auto) (0-5) /lpf Urine Bacteria (Auto) (Negative) COVID-19 Eval Order Covid19 Done at [facility] COVID-19 PCR NEGATIVE (Negative) 08/02/20 Range/Units 20:22 WBC (4.8-10.8) K/uL RBC (4.7-6.1) M/uL Hgb (14.0-18.0) g/dL Hct (42-52) % MCV (80-100) fL MCH (25-34) pg MCHC (32-36) g/dL RDW Std Deviation (36.4-46.3) fL RDW Coeff of Jeffrey (11.5-14.5) % Plt Count (130-400) K/uL MPV (7.4-10.4) fL Immature Gran % (Auto) % Neut % (Auto) % Lymph % (Auto) % [place] % (Auto) % Eos % (Auto) % Baso % (Auto) % Neut # (Auto) (1.4-6.5) K/uL Lymph # (Auto) (1.2-3.4) K/uL [place] # (Auto) (0.11-0.59) K/uL Eos # (Auto) (0-0.5) K/uL Baso # (Auto) (0-0.2) K/uL Immature Gran # (Auto) (0.00-0.02) K/uL PT (9.0-12.0) Seconds INR (0.9-1.1) APTT (21.0-31.0) Seconds PTT Ratio Sodium (136-145) mmol/L Potassium (3.5-5.1) mmol/L Chloride (98-107) mmol/L Carbon Dioxide (21-32) mmol/L Anion Gap (3-11) BUN (7-18) mg/dl Creatinine (0.6-1.4) mg/dl Est Cr Clr Drug Dosing ml/min Est GFR ( Amer) Est GFR (Non-Af Amer) BUN/Creatinine Ratio (10-20) Glucose (70-99) mg/dl Lactate (0.4-2.0) mmol/L Calcium (8.5-10.1) mg/dl Magnesium (1.8-2.4) mg/dl Total Bilirubin (0.2-1) mg/dl AST (15-37) U/L ALT (12-78) U/L Alkaline Phosphatase (45-117) U/L Troponin I (0-0.045) ng/ml Total Protein (6.4-8.2) gm/dl Albumin (3.4-5.0) gm/dl Globulin (2.5-4.0) gm/dl Albumin/Globulin Ratio (0.9-2) Urine Color Yellow Urine Appearance Clear (Clear) Urine pH 5.0 (4.5-7.5) Ur Specific [place] 1.015 (1.000-1.030) Urine Protein Negative (Negative) Urine Glucose (UA) Negative (Negative) Urine Ketones Negative (Negative) Urine Blood 2+ H (Negative) Urine Nitrite Negative (Negative) Urine Bilirubin Negative (Negative) Urine Urobilinogen Negative (Negative) Ur Leukocyte Esterase Negative (Negative) Urine WBC (Auto) 0 (0-5) /hpf Urine RBC (Auto) 10-30 H (0-4) /hpf U Hyaline Cast (Auto) 1-5 (0-5) /lpf U Epithel Cells (Auto) 0-5 (0-5) /lpf Urine Bacteria (Auto) Negative (Negative) COVID-19 Eval Order COVID-19 PCR (Negative) Imaging Data Attestation: I personally reviewed and interpreted this imaging study as follo ws: ECG Data Attestation: I personally reviewed and interpreted this ECG as follows: Indication: + altered mental status Rate (beats per minute): 56 Rhythm: + sinus bradycardia ECG Intervals/blocks: + Normal QRS, + Normal QT and + Normal HI ECG [place]: + Normal ECG Findings: + Other (ST and T wave abnormalities lateral which are unchanged from old); no PACs and no PVCs Comparison ECG Date: from (12/27/18) Change: no significant change Additional Comments: EKG #2: Normal sinus rhythm. He continues to have T wave inversions/ST changes laterally. It is very poor baseline due to his movement. There is concern for possible ST elevation inferiorly although is not consistent and I think is more likely due to movement MDM Narrative This patient is brought in after having increasing confusion and agitation he does have a history of dementia. It looks like he is also had some urinary infections in the past 2. IV access established and a full sepsis work-up was obtained. He is initially normotensive. He is unable to give me any further history. A full sepsis work-up was obtained. Chest x-ray was clear. He was COVID tested it was negative. Urinalysis does not show any definite abnormalities. White count is normal. he has no lactic acid elevation. There is no significant electrolyte or metabolic abnormalities. Troponin is negative. He did receive Zosyn 4 g IV for broad-spectrum antibiotic coverage. He does have a history of cardiac disease although has been stable otherwise and has no definite chest pain. His second EKG shows possible ST elevation inferiorly but I think a lot of it is due to poor baseline. I talked the patient's son about this he said the patient is definitely a DO NOT RESUSCITATE and would not want even a cardiac cath. I specifically discussed the cath with the son and told him that it is possible he could be having heart issues or even a heart attack now but again he declined cath. he has baseline dementia and is alert and oriented x1 only on a good day. he typically gets worse when he gets an infecti on and then gets better. I do think he needs to be admitted for further treatment and evaluation and I have consulted Dr. Lai who to see him in the ER for these measures. Continuous cardiac monitoring. The patient was placed on a continuous site monitor and was noted to be in sinus bradycardia at 55. Impression & Plan Altered mental status, Dementia, Cough, COVID-19 ruled out, Sepsis, Do not resuscitate discussion Discharge Plan Visit Data Chief Complaint: Altered Mental Status Stated Complaint: CONFUSION, WEAKNESS, AGITATION, DIARRHEA ED Provider: Igor Sheehan Discharge Problem: Altered mental status, Dementia, Cough, COVID-19 ruled out, Sepsis, Do not resuscitate discussion Patient Disposition: Admitted As Inpatient Discharge Instructions Interventions: ED Discharge Assessment Last Done: 08/02/20 21:57 Discharge Problem: Altered mental status Qualifiers: Altered mental status type: unspecified Qualified Code(s): R41.82 - Altered mental status, unspecified Dementia Qualifiers: Dementia type: unspecified type Dementia behavioral disturbance: without behavioral disturbance Qualified Code(s): F03.90 - Unspecified dementia without behavioral disturbance Sepsis Qualifiers: Sepsis type: sepsis due to unspecified organism Sepsis acute organ dysfunction status: unspecified Qualified Code(s): A41.9 - Sepsis, unspecified organism
[2020-08-02 18:07] LABS: Basophils # (auto) 0.02 K/uL (0-0.2); Basophils % (auto) 0.2 %; Eosinophils # (auto) 0.27 K/uL (0-0.5); Eosinophils % (auto) 3.1 %; Hematocrit (blood only) 38.4 % (42-52); Hemoglobin 11.4 g/dL (14.0-18.0); Immature Granulocytes # (auto) 0.02 K/uL (0.00-0.02); Immature Granulocytes % (auto) 0.2 %; Lymphocytes # (auto) 2.07 K/uL (1.2-3.4); Lymphocytes % (auto) 23.7 %; Mean Corpuscular Hemoglobin 28.9 pg (25-34); Mean Corpuscular Hgb Conc 29.7 g/dL (32-36); Mean Corpuscular Volume 97.5 fL (80-100); Mean Platelet Volume 10.4 fL (7.4-10.4); Monocytes # (auto) 2.01 K/uL (0.11-0.59); Neutrophils # (auto) 4.35 K/uL (1.4-6.5); Neutrophils % (auto) 49.8 %; Platelet Count 223 K/uL (130-400); RDW Coefficient of Variation 15.1 % (11.5-14.5); RDW Standard Deviation 53.9 fL (36.4-46.3); Red Blood Count 3.94 M/uL (4.7-6.1); White Blood Count 8.74 K/uL (4.8-10.8)
[2020-08-02 18:17] LABS: Partial Thromboplastin Time 27.8 Seconds (21.0-31.0); Prothrombin Time 10.7 Seconds (9.0-12.0)
[2020-08-02 18:25] LABS: Alanine Aminotransferase 19 U/L (12-78); Aspartate Aminotransferase 21 U/L (15-37); BUN Creatinine Ratio 9.4 (10-20); Blood Urea Nitrogen 16 mg/dl (7-18); Calcium 8.7 mg/dl (8.5-10.1); Carbon Dioxide 24 mmol/L (21-32); Chloride 110 mmol/L (98-107); Creatinine Clr Calc Pharmacy 32.5 ml/min; Est GFR (African American) 42.9; Glucose 82 mg/dl (70-99); Magnesium 2.1 mg/dl (1.8-2.4); Sodium 140 mmol/L (136-145)
[2020-08-02 18:30] LABS: Albumin Globulin Ratio 0.7 (0.9-2); Alkaline Phosphatase 57 U/L (45-117); Globulin 4.1 gm/dl (2.5-4.0); Total Protein 7.1 gm/dl (6.4-8.2); Troponin I < 0.015 ng/ml (0-0.045)
--- NOTE | 2020-08-02 18:44 | XRay Report ---
XR chest 1V portable HISTORY: SEPSIS COMPARISON: Chest 12/27/2018. FINDINGS: There are low lung volumes. No pleural effusions. No pneumothorax. No new focal lung consol idations to suggest pneumonia. No evidence for pulmonary edema. The heart remains enlarged. Poststern otomy changes. Mild interstitial thickening has improved. This is likely chronic. The bones are osteo penic. IMPRESSION: Stable mild cardiomegaly. No acute process within the chest. ACT 112: Negative or not required by law. Electronically signed by: Woody Hayden M.D. 08/02/2020 6:43 PM
[2020-08-02] MEDS ORDERED: LEVOFLOXACIN/D5W 500 MG/100 ML BAG IV STA (19:21)
[2020-08-02 20:44] LABS: Appearance Urine Clear (Clear); Bacteria Urine Automated Negative (Negative); Bilirubin Urine Negative (Negative); Blood Urine 2+ (Negative); Color Urine Yellow; Epithelial Cell Urine Auto 0-5 /lpf (0-5); Glucose Urine UA Negative (Negative); Ketones Urine Negative (Negative); Leukocyte Esterase Urine Negative (Negative); Nitrite Urine Negative (Negative); Protein Urine Negative (Negative); Specific Gravity Urine 1.015 (1.000-1.030); Urobilinogen Urine Negative (Negative); WBC Urine Automated 0 /hpf (0-5)
[2020-08-02] MEDS ORDERED: NITROGLYCERIN SL 0.4 MG/TAB TAB SL PRN (22:22)
[2020-08-02] MEDS ORDERED: ONDANSETRON INJ 2 MG/ML 2 ML VIAL IV PRN (22:22)
[2020-08-02] MEDS ORDERED: ACETAMINOPHEN 325 MG TAB PO PRN (22:22)
[2020-08-02] MEDS ORDERED: POLYETHYLENE (MIRALAX) 17 GM PACK PO PRN (22:22)
[2020-08-02] MEDS: D5W AND NSS 1,000 ML IV SCH (22:36)
--- NOTE | 2020-08-02 23:27 | History and Physical Report ---
DATE OF ADMISSION: 08/02/2020 CHIEF COMPLAINT: Confusion. HISTORY OF PRESENT ILLNESS: An 85-year-old male with past medical history significant for severe dementia. As per the son, he is only oriented to name, knows the son, knows that he is in the home. He [place] gets confusion, sundowning at home. He walks short distance with a walker, but he needs constant assistance. He lives alone, but he has 24-hour caregivers and son lives close by. The patient has been incontinent with urine and stool for the last few months. He has a history of hyperlipidemia, chronic diastolic CHF, chronic kidney disease stage III, CAD, ischemic cardiomyopathy, reflux esophagitis. He has a history of right lower leg polio and lumbar disc disease, anisocoria. He was brought in because of low-grade fever, diarrhea, and cough going on for the last few days. Last 2-3 days, the patient is having diarrhea. He is also coughing and swallowing his sputum and has poor appetite, is not eating much since the last 2-3 days and he seems to be dehydrated. Son says whenever the patient gets sick, he gets more confused. He says one of the caregivers had cold symptoms and as per the son she was tested negative for COVID and the patient was also tested for COVID in the ER . Also patient has no leukocytosis, no lymphopenia, afebrile, saturating 94% on room air. Seems comfortable. Has an occasional cough. The patient is very hard of hearing. Can tell his name. He says he is doing fine. Seems comfortable. As per the son, currently no nausea, vomiting, and he could not tell the patient is having any pain. One of the EKGs shows some ST elevations in inferior leads, but his troponin is negative. The patient seems comfortable and as per son says the patient is DNR and it is all written that no invasive procedure and does not want any cardiac catheterization if necessary. He is okay only with medications and shots, but no invasive procedures. ALLERGIES: PENICILLINS. PAST MEDICAL HISTORY: As mentioned above. PAST SURGICAL HISTORY: CABG in 2001, left heart catheterization in 2006. MEDICATIONS: The patient is on azithromycin as directed, Tessalon Perles 100 mg p.o. t.i.d., Prinivil 10 mg p.o. daily, citalopram 20 mg p.o. daily, Namenda 5 mg p.o. b.i.d., Tylenol 650 mg p.o. q. 6 hours p.r.n., ibuprofen 200 mg p.o. q. 4 hours p.r.n., fenofibrate micronized 134 mg p.o. daily, Crestor 40 mg p.o. daily, Aricept 10 mg p.o. daily, vitamin D 1000 units p.o. daily, hydrocodone/acetaminophen 5/325 mg one pill every 4 hours p.r.n. for severe pain, but using only half tablet very seldom for leg pain, Nexium 20 mg p.o. daily, vitamin B12 500 mcg p.o. daily, Colace 100 mg p.o. every other day, aspirin 81 mg p.o. daily. FAMILY HISTORY: No family history on file. SOCIAL HISTORY: . Former use of smokeless tobacco, quit in 2018. No alcohol use, no drug use. REVIEW OF SYSTEMS: As per HPI. Rest of review of systems could not be obtained as the patient has dementia and is confused currently and hard of hearing. PHYSICAL EXAMINATION: VITAL SIGNS: Temperature 37.1, pulse 54, respiratory rate 21, blood pressure 143/55, oxygen 94% on room air. HEENT: Pupils equal, round, and reactive to light. Oral mucosa dry. NECK: No neck masses seen. CARDIOVASCULAR: S1, S2 heard. Regular rate and rhythm, no murmur, no gallop. RESPIRATORY SYSTEM: Normal AP diameter. No accessory muscle use. No wheezing, no crackles. ABDOMEN: Soft, bowel sounds present. Mild abdominal discomfort. No guarding. No rigidity. No distention. CENTRAL NERVOUS SYSTEM: The patient is alert and awake, oriented to name. Hard of hearing. Moves extremities. EXTREMITIES: No edema, no erythema seen. LABORATORY DATA: WBC 8.7, hemoglobin 11.4, hematocrit 38.4, platelets 223. PT 10.7, INR 1, APTT 27.8. Sodium 140, potassium 4, chloride 110, bicarbonate 24, BUN 16, creatinine 1.6, serum glucose 82. Lactate 1.8, calcium 8.7, magnesium 2.1, total bilirubin 1, AST 21, ALT 19, alkaline phosphatase 57. Troponin I less than 0.015. Urinalysis, +2 blood otherwise negative. COVID-19 PCR negative. IMAGING DATA: Chest x-ray, no acute process within the chest. EKG: Shows sinus bradycardia at a rate of 56, ST-T wave abnormality, no significant change from previous EKG. Repeat EKG is showing normal sinus rhythm at a rate of 61. Nonspecific ST abnormality and some questionable ST elevation in the inferior leads. ASSESSMENT AND PLAN: This is an 85-year-old male who presents with altered mental status. 1. Altered mental status: The patient at baseline has severe dementia, oriented to name and recognizes son and knows that he is in the house, but also he gets on and off confusion at home. He was more confused lately also having some low-grade temperature, cough, and diarrhea. Metabolic encephalopathy secondary to ongoing possible some viral illness. COVID-19 PCR is negative. No leukocytosis, no lymphopenia. UA is negative. Chest x-ray is negative. Received Levaquin in the ER because the patient is penicillin allergic. Will continue with azithromycin as patient has some cough.. We will keep him hydrated with gentle fluids. Observe in [facility]. 2. History of coronary artery disease status post coronary artery bypass graft: Continue his home medication of aspirin, statin, not on any beta blockers. We will monitor. Questionable EKG changes. One of the EKG showed questionable ST elevation. But patient seems to be comfortable and troponin is negative and also son says the patient is DNR and does not want any invasive procedures or any cardiac catheterizations. Will follow the serial enzymes and follow the repeat EKG. Will get an echo. 3. History of hypertension: Continue his lisinopril and monitor the blood pressure. 4. History of hyperlipidemia: Continue statin and fenofibrate. 5. History of depression: Continue citalopram. 6. Chronic kidney disease stage III: Baseline creatinine around 1.7, currently with creatinine of 1.6. Will follow the labs. 7. History of dementia: Continue his Aricept and Namenda. 8. Gastroesophageal reflux disease: Continue his Nexium. 9. Chronic ischemic cardiomyopathy, EF of 35% as per the records, but in the latest echo in January 2015, EF was 55% to 59%. On lisinopril. Not on any diuretics. 10. Deep venous thrombosis prophylaxis, sequential compression devices for now. 11. Disposition: Observe in [facility]. Expect to discharge back to his home with caregivers when stable. DNR/DNI as per my discussion with the son. Social service to help with discharge planning. PATI
[2020-08-03] MEDS: TRICOR~ORDER AWAITING ACTION SCH ×3 (01:13→16:03)
[2020-08-03 05:46] LABS: Basophils # (auto) 0.02 K/uL (0-0.2); Basophils % (auto) 0.3 %; Eosinophils # (auto) 0.28 K/uL (0-0.5); Eosinophils % (auto) 4.4 %; Hematocrit (blood only) 34.1 % (42-52); Hemoglobin 10.6 g/dL (14.0-18.0); Immature Granulocytes # (auto) 0.02 K/uL (0.00-0.02); Immature Granulocytes % (auto) 0.3 %; Lymphocytes # (auto) 2.12 K/uL (1.2-3.4); Lymphocytes % (auto) 33.5 %; Mean Corpuscular Hemoglobin 30.3 pg (25-34); Mean Corpuscular Hgb Conc 31.1 g/dL (32-36); Mean Corpuscular Volume 97.4 fL (80-100); Mean Platelet Volume 10.4 fL (7.4-10.4); Monocytes # (auto) 1.55 K/uL (0.11-0.59); Monocytes % (auto) 24.5 %; Neutrophils # (auto) 2.33 K/uL (1.4-6.5); Platelet Count 208 K/uL (130-400); RDW Coefficient of Variation 15.2 % (11.5-14.5); RDW Standard Deviation 53.8 fL (36.4-46.3); White Blood Count 6.32 K/uL (4.8-10.8)
[2020-08-03 06:21] LABS: BUN Creatinine Ratio 9.9 (10-20); Blood Urea Nitrogen 16 mg/dl (7-18); Calcium 8.6 mg/dl (8.5-10.1); Carbon Dioxide 23 mmol/L (21-32); Chloride 111 mmol/L (98-107); Creatinine Clr Calc Pharmacy 34.7 ml/min; Est GFR (African American) 45.6; Est GFR (Non-African American) 39.3; Glucose 91 mg/dl (70-99); Magnesium 2.1 mg/dl (1.8-2.4); Sodium 140 mmol/L (136-145)
[2020-08-03 06:26] LABS: Troponin I < 0.015 ng/ml (0-0.045)
[2020-08-03] MEDS: PANTOprazole 40 MG TAB PO SCH (08:27)
[2020-08-03] MEDS: ASPIRIN 81 MG ECTAB PO SCH (08:27)
[2020-08-03] MEDS: CYANOCOBALAMIN 500 MCG TABLET (VITAMIN B-12) PO SCH (08:27)
[2020-08-03] MEDS: CHOLECALCIFEROL 1,000 UNITS 25 MCG TAB PO SCH (08:27)
--- NOTE | 2020-08-03 08:44 | Hospitalist Progress Note ---
Date of Service August 03, 2020 Assessment & Plan (1) Altered mental status: (2) Cough: Reported hx of cough with sputum for some days per Admitting Dr CXR does not show opacities Possible bronchitis -viral vs bacteria No leukocytosis Currently on room air Currently on azithromycin Get procalcitonin AMS reported as increased confusion. Likely delirium in the setting of ?URI in a patient with advanced dementia Reported hx of urinary incontinence for weeks. UA does not suggest any UTI (3) CAD (coronary artery disease): S/p CABG Ischemic cardiomyopathy Per outpatient Card note from last yr, EF was reported to be 35-40 Per Echo report in [facility], EF was 55-59 in 2015 Continue lisinopril One of EKG from admission showed questionable ST elevation. Troponin trend have been negative. However, Dr Parks discussed with son who does not want any invasive procedures Patient refused echo this AM (4) HTN (hypertension): BP controlled Continue lisinopril (5) Dementia: Continue home meds Aricept (6) CKD (chronic kidney disease) stage 3, GFR 30-59 ml/min: Cr is 1.58 Renal function at baseline Avoid nephrotoxins Admission and Anticipated Discharge Date Admission Date: August 02, 2020 Subjective Patient seen and examined. Awake, confused, does not follow commands Able to drink on his own and occasionally mumbles Per RN, he had been refusing tests. Review of Systems Review of Systems: Unobtainable due to cognitive status Physical Exam Constitutional: + well hydrated; no acute distress Awake alert Eyes: PERRL, conjunctivae normal, anicteric sclerae ENMT: external ear and nose normal, oropharynx normal Respiratory: normal respiratory effort, lungs clear to auscultation Cardiovascular: Rate/Rhythm: regular rate and regular rhythm Extremities: no pedal edema S1 S2 Gastrointestinal (Abdomen): normal bowel sounds, soft, nontender, no hepatosplenomegaly Neurologic: PERRL, EOMI, accommodation nl, no face palsy, no dysarthria Awake, alert, answers to name, not oriented. Does not follow commands but moves all extremities spontaneously Results & Data Results & Data ([facility]) Vital Signs (Past 12 Hours) Vital Signs Temp Pulse Pulse Resp BP BP Pulse Ox 08/03/20 07:58 36.7 C 46 L 18 122/67 98 08/03/20 07:22 44 L 08/03/20 04:18 60 08/03/20 04:09 36.4 C L 48 L 20 137/60 94 08/03/20 00:08 36.5 C 52 L 20 117/67 94 08/02/20 22:29 36.9 C 52 L 28 H 115/63 94 08/02/20 21:50 52 L 17 97 08/02/20 21:45 51 L 23 147/63 H 96 08/02/20 21:40 53 L 21 91 08/02/20 21:30 54 L 21 143/55 H 92 08/02/20 21:15 54 L 19 127/60 96 08/02/20 21:00 54 L 28 H 133/67 89 L 08/02/20 20:56 55 L 19 143/69 H 96 08/02/20 20:45 58 L 17 143/69 H 94 Laboratory Results Laboratory Results - last 24 hr 08/02/20 08/02/20 08/02/20 17:40 17:40 17:40 WBC 8.74 RBC 3.94 L Hgb 11.4 L Hct 38.4 L MCV 97.5 MCH 28.9 MCHC 29.7 L RDW Std Deviation 53.9 H RDW Coeff of Jeffrey 15.1 H Plt Count 223 MPV 10.4 Immature Gran % (Auto) 0.2 Neut % (Auto) 49.8 Lymph % (Auto) 23.7 Phillips % (Auto) 23.0 Eos % (Auto) 3.1 Baso % (Auto) 0.2 Neut # (Auto) 4.35 Lymph # (Auto) 2.07 Phillips # (Auto) 2.01 H Eos # (Auto) 0.27 Baso # (Auto) 0.02 Immature Gran # (Auto) 0.02 PT 10.7 INR 1.0 APTT 27.8 PTT Ratio 1.0 Sodium 140 Potassium 4.0 Chloride 110 H Carbon Dioxide 24 Anion Gap 6.0 BUN 16 Creatinine 1.66 H Est Cr Clr Drug Dosing 32.5 Est GFR ( Amer) 42.9 Est GFR (Non-Af Amer) 37.0 BUN/Creatinine Ratio 9.4 L Glucose 82 Lactate Calcium 8.7 Magnesium 2.1 Total Bilirubin 1.0 AST 21 ALT 19 Alkaline Phosphatase 57 Troponin I < 0.015 Total Protein 7.1 Albumin 3.0 L Globulin 4.1 H Albumin/Globulin Ratio 0.7 L Urine Color Urine Appearance Urine pH Ur Specific [place] Urine Protein Urine Glucose (UA) Urine Ketones Urine Blood Urine Nitrite Urine Bilirubin Urine Urobilinogen Ur Leukocyte Esterase Urine WBC (Auto) Urine RBC (Auto) U Hyaline Cast (Auto) U Epithel Cells (Auto) Urine Bacteria (Auto) COVID-19 Eval Order COVID-19 PCR 08/02/20 08/02/20 08/02/20 17:40 19:27 19:27 WBC RBC Hgb Hct MCV MCH MCHC RDW Std Deviation RDW Coeff of Jeffrey Plt Count MPV Immature Gran % (Auto) Neut % (Auto) Lymph % (Auto) Phillips % (Auto) Eos % (Auto) Baso % (Auto) Neut # (Auto) Lymph # (Auto) Phillips # (Auto) Eos # (Auto) Baso # (Auto) Immature Gran # (Auto) PT INR APTT PTT Ratio Sodium Potassium Chloride Carbon Dioxide Anion Gap BUN Creatinine Est Cr Clr Drug Dosing Est GFR ( Amer) Est GFR (Non-Af Amer) BUN/Creatinine Ratio Glucose Lactate 1.8 Calcium Magnesium Total Bilirubin AST ALT Alkaline Phosphatase Troponin I Total Protein Albumin Globulin Albumin/Globulin Ratio Urine Color Urine Appearance Urine pH Ur Specific [place] Urine Protein Urine Glucose (UA) Urine Ketones Urine Blood Urine Nitrite Urine Bilirubin Urine Urobilinogen Ur Leukocyte Esterase Urine WBC (Auto) Urine RBC (Auto) U Hyaline Cast (Auto) U Epithel Cells (Auto) Urine Bacteria (Auto) COVID-19 Eval Order Covid19 Done at [facility] COVID-19 PCR NEGATIVE 08/02/20 08/02/20 08/03/20 20:22 22:48 04:59 WBC 6.32 RBC 3.50 L Hgb 10.6 L Hct 34.1 L MCV 97.4 MCH 30.3 MCHC 31.1 L RDW Std Deviation 53.8 H RDW Coeff of Jeffrey 15.2 H Plt Count 208 MPV 10.4 Immature Gran % (Auto) 0.3 Neut % (Auto) 37.0 Lymph % (Auto) 33.5 Phillips % (Auto) 24.5 Eos % (Auto) 4.4 Baso % (Auto) 0.3 Neut # (Auto) 2.33 Lymph # (Auto) 2.12 Phillips # (Auto) 1.55 H Eos # (Auto) 0.28 Baso # (Auto) 0.02 Immature Gran # (Auto) 0.02 PT INR APTT PTT Ratio Sodium Potassium Chloride Carbon Dioxide Anion Gap BUN Creatinine Est Cr Clr Drug Dosing Est GFR ( Amer) Est GFR (Non-Af Amer) BUN/Creatinine Ratio Glucose Lactate Calcium Magnesium Total Bilirubin AST ALT Alkaline Phosphatase Troponin I < 0.015 Total Protein Albumin Globulin Albumin/Globulin Ratio Urine Color Yellow Urine Appearance Clear Urine pH 5.0 Ur Specific [place] 1.015 Urine Protein Negative Urine Glucose (UA) Negative Urine Ketones Negative Urine Blood 2+ H Urine Nitrite Negative Urine Bilirubin Negative Urine Urobilinogen Negative Ur Leukocyte Esterase Negative Urine WBC (Auto) 0 Urine RBC (Auto) 10-30 H U Hyaline Cast (Auto) 1-5 U Epithel Cells (Auto) 0-5 Urine Bacteria (Auto) Negative COVID-19 Eval Order COVID-19 PCR 08/03/20 04:59 WBC RBC Hgb Hct MCV MCH MCHC RDW Std Deviation RDW Coeff of Jeffrey Plt Count MPV Immature Gran % (Auto) Neut % (Auto) Lymph % (Auto) Phillips % (Auto) Eos % (Auto) Baso % (Auto) Neut # (Auto) Lymph # (Auto) Phillips # (Auto) Eos # (Auto) Baso # (Auto) Immature Gran # (Auto) PT INR APTT PTT Ratio Sodium 140 Potassium 4.0 Chloride 111 H Carbon Dioxide 23 Anion Gap 6.0 BUN 16 Creatinine 1.58 H Est Cr Clr Drug Dosing 34.7 Est GFR ( Amer) 45.6 Est GFR (Non-Af Amer) 39.3 BUN/Creatinine Ratio 9.9 L Glucose 91 Lactate Calcium 8.6 Magnesium 2.1 Total Bilirubin AST ALT Alkaline Phosphatase Troponin I < 0.015 Total Protein Albumin Globulin Albumin/Globulin Ratio Urine Color Urine Appearance Urine pH Ur Specific [place] Urine Protein Urine Glucose (UA) Urine Ketones Urine Blood Urine Nitrite Urine Bilirubin Urine Urobilinogen Ur Leukocyte Esterase Urine WBC (Auto) Urine RBC (Auto) U Hyaline Cast (Auto) U Epithel Cells (Auto) Urine Bacteria (Auto) COVID-19 Eval Order COVID-19 PCR (1) Altered mental status Altered mental status type: unspecified Qualified Code(s): R41.82 - Altered mental status, unspecified
[2020-08-03] MEDS ORDERED: AZITHROMYCIN 250 MG TAB PO SCH (09:00)
[2020-08-03] MEDS: D5W AND NSS 1,000 ML IV SCH (11:00)
[2020-08-03] MEDS: DONEPEZIL HCL 10 MG TAB PO SCH (11:01)
[2020-08-03] MEDS: lisinopriL 10 MG TAB PO SCH ×2 (11:08→12:22)
[2020-08-03] MEDS: CITALOPRAM 20 MG TAB PO SCH ×2 (11:08→12:22)
[2020-08-03] MEDS: ROSUVASTATIN CALCIUM 20 MG TAB PO SCH (20:12)
--- NOTE | 2020-08-03 22:12 | Electrocardiogram Report ---
Test Reason : Blood Pressure : / mmHG Vent. Rate : 056 BPM Atrial Rate : 056 BPM P-R Int : 192 ms QRS Dur : 092 ms QT Int : 432 ms P-R-T Axes : 020 043 192 degrees QTc Int : 416 ms Poor data quality, interpretation may be adversely affected Sinus bradycardia Cannot rule out Inferior infarct , age undetermined Abnormal ECG When compared with ECG of 27-DEC-2018 18:35, No significant change was found Confirmed by Gerson Ward ([id number]) on 08/03/2020 10:12:06 PM Referred By: REFERRED SELF Confirmed By:Gerson Ward
--- NOTE | 2020-08-03 22:20 | Electrocardiogram Report ---
Test Reason : Blood Pressure : / mmHG Vent. Rate : 061 BPM Atrial Rate : 061 BPM P-R Int : 192 ms QRS Dur : 114 ms QT Int : 444 ms P-R-T Axes : 030 048 145 degrees QTc Int : 446 ms Normal sinus rhythm Abnormal ECG When compared with ECG of 02-AUG-2020 17:44, ST elevation now present in Inferior leads Confirmed by Gerson Ward ([id number]) on 08/03/2020 10:19:41 PM Referred By: REFERRED SELF Confirmed By:Gerson Ward
[2020-08-04] MEDS: D5W AND NSS 1,000 ML IV SCH (01:13)
[2020-08-04] MEDS: TRICOR~ORDER AWAITING ACTION SCH ×4 (01:15→23:10)
[2020-08-04 01:29] LABS: Hematocrit (blood only) 33.7 % (42-52); Hemoglobin 10.8 g/dL (14.0-18.0); Mean Corpuscular Hemoglobin 30.8 pg (25-34); Mean Platelet Volume 10.2 fL (7.4-10.4); Platelet Count 202 K/uL (130-400); RDW Coefficient of Variation 14.9 % (11.5-14.5); RDW Standard Deviation 52.6 fL (36.4-46.3); Red Blood Count 3.51 M/uL (4.7-6.1); White Blood Count 6.07 K/uL (4.8-10.8)
[2020-08-04 01:47] LABS: BUN Creatinine Ratio 8.8 (10-20); Calcium 8.5 mg/dl (8.5-10.1); Potassium 4.2 mmol/L (3.5-5.1)
[2020-08-04] MEDS: CHOLECALCIFEROL 1,000 UNITS 25 MCG TAB PO SCH (08:47)
[2020-08-04] MEDS: PANTOprazole 40 MG TAB PO SCH (08:47)
[2020-08-04] MEDS: ASPIRIN 81 MG ECTAB PO SCH (08:47)
[2020-08-04] MEDS: CYANOCOBALAMIN 500 MCG TABLET (VITAMIN B-12) PO SCH (08:47)
--- NOTE | 2020-08-04 09:51 | Hospitalist Progress Note ---
Date of Service August 04, 2020 Assessment & Plan (1) Altered mental status: (2) Cough: Reported hx of cough with sputum for some days per Admitting CXR does not show opacities No leukocytosis Currently on room air Procalcitonin negative Spoke with son on the phone yesterday. He stated patient was better and getting back to baseline mental status when he visited him. He also reported one of patient's caregivers recently had a cold. Symptoms likely viral URI based on history and findings. Azithromycin discontinued AMS reported as increased confusion. Likely delirium in the setting of ?URI in a patient with advanced dementia Reported hx of urinary incontinence for weeks. UA does not suggest any UTI (3) CAD (coronary artery disease): S/p CABG Ischemic cardiomyopathy Per outpatient Card note from last yr, EF was reported to be 35-40 Per Echo report in [facility], EF was 55-59 in 2015 Continue lisinopril One of EKG from admission showed questionable ST elevation. Troponin trend have been negative. However, Dr Parks discussed with son who does not want any invasive procedures Patient refused echo this AM (4) HTN (hypertension): BP controlled Continue lisinopril (5) Dementia: Continue home meds Aricept (6) CKD (chronic kidney disease) stage 3, GFR 30-59 ml/min: Cr is 1.44 Renal function at baseline Avoid nephrotoxins Disposition Discussed with son. He requested a hospital bed. I think this is appropriate considering patient is not able to care for self due to advanced dementia and need frequent changes in body position to minimize risk of skin breakdown Script written. He is not able to take patient home today Plan to discharge tomorrow CM informed Admission and Anticipated Discharge Date Admission Date: August 02, 2020 Subjective Patient seen and examined. Alert,awake. Has hearing deficits, required speaking in very loud volumes to understand. Alert and oriented to person only. Review of Systems Review of Systems: Unobtainable due to cognitive status Physical Exam Constitutional: + well hydrated; no acute distress Eyes: PERRL, conjunctivae normal, anicteric sclerae ENMT: external ear and nose normal, oropharynx normal Respiratory: normal respiratory effort, lungs clear to auscultation Cardiovascular: Rate/Rhythm: regular rate and regular rhythm Extremities: no pedal edema Gastrointestinal (Abdomen): normal bowel sounds, soft, nontender, no hepatosplenomegaly Neurologic: PERRL, EOMI, accommodation nl, no face palsy, no dysarthria Aox1, +hearing deficits. moves all extremitites Results & Data Results & Data ([facility]) Vital Signs (Past 12 Hours) Vital Signs Temp Pulse Pulse Resp BP Pulse Ox 08/04/20 00:00 48 L 08/03/20 22:57 36.7 C 49 L 18 138/62 97 Laboratory Results Laboratory Results - last 24 hr 08/03/20 08/04/20 08/04/20 10:07 01:03 01:10 WBC 6.07 RBC 3.51 L Hgb 10.8 L Hct 33.7 L MCV 96.0 MCH 30.8 MCHC 32.0 RDW Std Deviation 52.6 H RDW Coeff of Jeffrey 14.9 H Plt Count 202 MPV 10.2 Sodium 142 Potassium 4.2 Chloride 113 H Carbon Dioxide 22 Anion Gap 7.0 BUN 13 Creatinine 1.44 H Est Cr Clr Drug Dosing 38.0 Est GFR ( Amer) 51.0 Est GFR (Non-Af Amer) 44.0 BUN/Creatinine Ratio 8.8 L Glucose 86 Calcium 8.5 Procalcitonin < 0.05 (1) Altered mental status Altered mental status type: unspecified Qualified Code(s): R41.82 - Altered mental status, unspecified
[2020-08-04] MEDS: DONEPEZIL HCL 10 MG TAB PO SCH (11:16)
[2020-08-04] MEDS: lisinopriL 10 MG TAB PO SCH (11:17)
[2020-08-04] MEDS: CITALOPRAM 20 MG TAB PO SCH (11:17)
[2020-08-04] MEDS: ROSUVASTATIN CALCIUM 20 MG TAB PO SCH (20:42)
[2020-08-05] MEDS: TRICOR~ORDER AWAITING ACTION SCH (06:57)
[2020-08-05] MEDS: ASPIRIN 81 MG ECTAB PO SCH (07:55)
[2020-08-05] MEDS: PANTOprazole 40 MG TAB PO SCH (07:55)
[2020-08-05] MEDS: CHOLECALCIFEROL 1,000 UNITS 25 MCG TAB PO SCH (07:55)
[2020-08-05] MEDS: CYANOCOBALAMIN 500 MCG TABLET (VITAMIN B-12) PO SCH (07:55)
--- NOTE | 2020-08-05 10:21 | Discharge Summary ---
Date of Service August 05, 2020 Admission HPI Per Admitting Provider 85-year-old male with past medical history significant for severe dementia. As per the son, he is only oriented to name, knows the son, knows that he is in the home. He [place] gets confusion, sundowning at home. He walks short distance with a walker, but he needs constant assistance. He lives alone, but he has 24-hour caregivers and son lives close by. The patient has been incontinent with urine and stool for the last few months. He has a history of hyperlipidemia, chronic diastolic CHF, chronic kidney disease stage III, CAD, ischemic cardiomyopathy, reflux esophagitis. He has a history of right lower leg polio and lumbar disc disease, anisocoria. He was brought in because of low-grade fever, diarrhea, and cough going on for the last few days. Last 2-3 days, the patient is having diarrhea. He is also coughing and swallowing his sputum and has poor appetite, is not eating much since the last 2-3 days and he seems to be dehydrated. Son says whenever the patient gets sick, he gets more confused. He says one of the caregivers had cold symptoms and as per the son she was tested negative for COVID and the patient was also tested for COVID in the ER . Also patient has no leukocytosis, no lymphopenia, afebrile, saturating 94% on room air. Seems comfortable. Has an occasional cough. The patient is very hard of hearing. Can tell his name. He says he is doing fine. Seems comfortable. As per the son, currently no nausea, vomiting, and he could not tell the patient is having any pain. One of the EKGs shows some ST elevations in inferior leads, but his troponin is negative. The patient seems comfortable and as per son says the patient is DNR and it is all written that no invasive procedure and does not want any cardiac catheterization if necessary. He is okay only with medications and shots, but no invasive procedures. Admission Exam Per Admitting Provider VITAL SIGNS: Temperature 37.1, pulse 54, respiratory rate 21, blood pressure 143/55, oxygen 94% on room air. HEENT: Pupils equal, round, and reactive to light. Oral mucosa dry. NECK: No neck masses seen. CARDIOVASCULAR: S1, S2 heard. Regular rate and rhythm, no murmur, no gallop. RESPIRATORY SYSTEM: Normal AP diameter. No accessory muscle use. No wheezing, no crackles. ABDOMEN: Soft, bowel sounds present. Mild abdominal discomfort. No guarding. No rigidity. No distention. CENTRAL NERVOUS SYSTEM: The patient is alert and awake, oriented to name. Hard of hearing. Moves extremities. EXTREMITIES: No edema, no erythema seen. Principal Diagnosis Altered mental status Upper respiratory infection Discharge Exam Constitutional + well hydrated; no acute distress Eyes PERRL, conjunctivae normal, anicteric sclerae ENMT external ear and nose normal, oropharynx normal Respiratory normal respiratory effort, lungs clear to auscultation Cardiovascular Rate/Rhythm: regular rate and regular rhythm Extremities: no pedal edema Gastrointestinal (Abdomen) normal bowel sounds, soft, nontender, no hepatosplenomegaly Neurologic PERRL, EOMI, accommodation nl, no face palsy, no dysarthria Alert and oriented to self only. +hearing deficits. moves all extremities spont aneously Discharge Data Allergies Allergy/AdvReac Type Severity Reaction Status Date / Time Penicillins Allergy Unknown ANAPHYLAXIS Verified 08/02/20 22:03 Consultations 08/02/20 20:23 ED Decision to Admit Stat 08/02/20 22:22 Consult Case Management - Discharge Planning Routine Ordered Studies 08/02/20 18:53 CT head/brain wo con Urgent Hospital Course (1) Altered mental status: (2) Cough: Reported hx of cough with sputum for some days CXR does not show opacities No leukocytosis Currently on room air Procalcitonin negative Patient was better and getting back to baseline mental status when he visited him. He also reported one of patient's caregivers recently had a cold. Symptoms likely viral URI based on history and findings. AMS reported as increased confusion. Likely delirium in the setting of ?URI in a patient with advanced dementia Resolved now. Back to baseline mental status Reported hx of urinary incontinence for weeks. UA does not suggest any UTI (3) CAD (coronary artery disease): S/p CABG Ischemic cardiomyopathy Per outpatient Card note from last yr, EF was reported to be 35-40 Per Echo report in [facility], EF was 55-59 in 2015 Continue lisinopril One of EKG from admission showed questionable ST elevation. Troponin trend have been negative. However, Dr Parks discussed with son who does not want any invasive procedures Patient refused echo this AM (4) HTN (hypertension): BP controlled Continue lisinopril (5) Dementia: Continue home meds Aricept (6) CKD (chronic kidney disease) stage 3, GFR 30-59 ml/min: Renal function at baseline Avoid nephrotoxins Total Time Total Time Spent Total Time Spent (In Minutes): 25 Total Time Includes: Examination of the Patient, Discharge Planning and Medication Reconciliation Discharge Plan Discharge Items Patient Disposition: Home - Home Health Services Reason For Visit: AMS Discharge Diagnosis: Altered mental status Upper respiratory infection, likely viral Activity: Resume your previous activity Non-emergency contact: Primary Care Provider Call non-emergency contact if: you have any medication questions and your symptoms worsen Follow-up/Referrals: Orestes Wesley MD [Primary Care Provider] - Diet: Heart Healthy Diet Texture: Easy to Chew Addtl Attending Provider Instructions: Mr Haq. You were brought to the hospital for worsening confusion in the setting of cough. You were evaluated and found to have upper respiratory infection. You were treated and your symptoms are improving. Please continue to take your medications as prescribed. It was a pleasure taking care of you. Pending Studies at Discharge: No Stand-Alone Forms: My [facility] [employer], Smoking Cessation Medications and DC Order Prescriptions: Continued donepezil [Aricept] 10 mg Tablet 10 mg PO QDL RF: 0 aspirin 81 mg Tablet,Delayed Release (Dr/Ec) 81 mg PO QAM RF: 0 citalopram [Celexa] 20 mg Tablet 20 mg PO QDL RF: 0 lisinopril 10 mg Tablet 10 mg PO QDL RF: 0 esomeprazole magnesium [Nexium] 20 mg Capsule,Delayed Release(Dr/Ec) 20 mg PO DAILY RF: 0 memantine [Namenda] 5 mg tablet 5 mg PO BID RF: 0 Discontinued azithromycin [Zithromax Z-Randy] 250 mg tablet 250 mg PO DAILY RF: 0 Discharge Orders: Discharge Order (Routine); Ordered 08/05/20 Ordered By: Rachelle Dooley Admission Data Admit Date/Time: 08/02/20 21:01 Attending Provider: Rachelle Dooley I. Admit Provider: Romeo Parks Primary Care Provider: Orestes Wesley Other Providers: Romeo Parks ; Kay Clements Other Interventions: Discharge Summary Assessment (RN) Last Done: 08/05/20 10:39
[2020-08-05] MEDS: lisinopriL 10 MG TAB PO SCH (11:30)
[2020-08-05] MEDS: CITALOPRAM 20 MG TAB PO SCH (11:30)
[2020-08-05] MEDS: DONEPEZIL HCL 10 MG TAB PO SCH (11:30)
== END 2020-08-05 12:22 | disposition home health service (06) ==
LOC: ED 16:51 → 2W 16:51 → SUATTDRO 21:01 → 2W 21:57 → 2N 08-04 00:33

== ENCOUNTER 2020-11-03 12:21 | Inpatient (IN) ==
[2020-11-03] MEDS ORDERED: LORazepam 0.5 MG/1 ML VIAL IV STA (12:51)
[2020-11-03] MEDS ORDERED: SODIUM CHLORIDE 0.9% 1000ML 500 ML IV ONE (12:51)
--- NOTE | 2020-11-03 12:56 | Emergency Department Note ---
History of Present Illness General Chief complaint: Altered Mental Status Time Seen by Provider: 11/03/20 12:37 Source: EMS and RN notes reviewed Mode of arrival: EMS Limitations: no limitations History of Present Illness Provider complaint: Not taking medications, agitation The patient is unable to provide any history as he has significant dementia. I did review the patient's previous ED visit. At that time he was DNR and he would not want a cardiac cath or other heroic methods to keep him alive according to the family. The patient, per the nurse who received report from EMS states that the patient has not been taking his medications and has some increased agitation. For this reason the patient was sent here. The nurse reports the patient is on hospice. He does have some baseline combativeness. No additional concerns were expressed. I did speak with the patient's son who also has the name Donn who is also the power of assistant professor of life sciences. The son reports that the patient has recently been weaned off of one of his Alzheimer medications. He states that he has 24-hour nursing care at home for the pat ie. He is on hospice but when he contacted hospice, the stated to bring him here to check him for anything that can cause sudden changes. The patient's son states that his symptoms started around 2 AM. He reports that he sometimes does not take his medication the morning but normally drinks fluids. They were unable to get him to take fluids this morning. The son also reports that he has chronic sundowning at night. He states that this morning he was grabbing at things that were not there and sitting on the floor in his bedroom. The son feels that he is unable to take care of the patient at home any longer even with a 24-hour nursing care. He states that they have difficulty with himself as well as the nurse getting him to the bathroom and getting him into and out of bed. Home Medications Medication Instructions Recorded Confirmed Type aspirin 81 mg PO QAM 12/27/18 11/03/20 History citalopram [Celexa] 20 mg PO QDL 12/27/18 11/03/20 History donepezil [Aricept] 10 mg PO QDL 12/27/18 11/03/20 History lisinopril 10 mg PO QDL 12/27/18 11/03/20 History esomeprazole magnesium [Nexium] 20 mg PO DAILY 08/02/20 11/03/20 History memantine [Namenda] 5 mg PO BID 08/02/20 11/03/20 History Allergies Allergy/AdvReac Type Severity Reaction Status Date / Time Penicillins Allergy Unknown ANAPHYLAXIS Verified 11/03/20 14:03 Past Med/Surg History Medical History (Updated 11/03/20 @ 16:12 by Prince Polanco DO) Alzheimer's dementia CAD (coronary artery disease) CKD (chronic kidney disease) stage 3, GFR 30-59 ml/min Dyslipidemia Renal cyst Renal stone Surgical History Hx of CABG Hx of cardiac cath Family History Other Family history non-contributory Social History Smoking Status: Unknown if ever smoked Second Hand Exposure: No; Hx Alcohol Use: No Hx Substance Use: No Preferred Language: [place] Communication Ability: Effective Drawbridge Tender Required: No Beliefs That Will Affect Care: None marital status: / Current Living Situation: Family Current Living Situation Comment: 24 hour care Feels Safe at Home: Yes Assistive Devices: Walker Review of Systems A total of 10 systems reviewed and were otherwise negative Physical Exam Vital Signs Vital Signs - 24 hr 11/03/20 12:39 11/03/20 12:53 11/03/20 13:55 Temperature 36.7 C Temperature Source Oral Pulse Rate 69 Pulse Rate [Finger] 66 Respiratory Rate 20 18 Blood Pressure 166/83 H Blood Pressure [Right Arm] Blood Pressure Mean 110 Blood Pressure Mean [Right Arm] Pulse Oximetry 98 98 98 Oxygen Delivery Method Room Air Room Air Room Air Sepsis Recent Fever Within 48 Hours No Sepsis New/Unexplained Change in Mental Status N/A Sepsis Action Taken by Nursing No Action Required 11/03/20 15:45 Temperature Temperature Source Pulse Rate Pulse Rate [Finger] 60 Respiratory Rate 18 Blood Pressure Blood Pressure [Right Arm] 171/86 H Blood Pressure Mean Blood Pressure Mean [Right Arm] 114 Pulse Oximetry 97 Oxygen Delivery Method Room Air Sepsis Recent Fever Within 48 Hours Sepsis New/Unexplained Change in Mental Status Sepsis Action Taken by Nursing CONSTITUTIONAL/VITAL SIGNS: Reviewed / noted above. GENERAL: Non-toxic in appearance. INTEGUMENTARY: Warm, dry, and [place]. HEAD: Normocephalic. EYES: without scleral icterus or trauma. ENT/OROPHARYNX: clear and tongue is slightly dry. LYMPHADENOPATHY/NECK: Is supple without lymphadenopathy or meningismus. RESPIRATORY: Lungs clear and equal. CARDIOVASCULAR: Regular rate and rhythm. GI/ABDOMEN: Soft and nontender. No organomegaly or pulsatile mass. No rebound or guarding. Normal bowel sounds. EXTREMITIES: Warm and well perfused. BACK: No CVA tenderness. NEUROLOGICAL: Patient does awaken. When I walked in the room at first, the patient was speaking as if he was speaking to somebody who was not there. He did have his eyes closed. He continued to speak randomly while I was there. Occasionally he would answer basic questions when he would open his eyes and I would get his attention, he would tell me he is fine. He has no specific complaints. He moves all 4 extremities. Does not follow commands. PSYCHIATRIC: Patient is easily agitated will. He was fighting with the nurses here. MUSCULOSKELETAL: Normally developed with good muscle tone. TRIAGE NURSING DOCUMENTATION REVIEWED. Course Administered Medications Discontinued Medications Sodium Chloride (Nss 1000ml) 500 mls @ 999 mls/hr IV .Q31M ONE Stop: 11/03/20 13:21 Last Infusion: 11/03/20 14:06 Dose: 0 mls/hr Documented by: [id number] Admin: 11/03/20 13:35 Dose: 999 mls/hr Documented by: [id number] Lorazepam (Ativan) 0.5 mg in 1 mls @ 1 mls/min IV NOW STA Stop: 11/03/20 12:52 Last Admin: 11/03/20 13:30 Dose: 1 mls/min Documented by: [id number] Medical Decision Making Differential Diagnosis Differential includes acute coronary syndrome, myocardial infarction, CVA, TIA, anemia, infection, pneumonia, UTI, pyelonephritis, poor nutrition, dehydration, electrolyte disturbance,hypoglycemia. Medical Records Attestation: I reviewed the patient's medical records. Home Medications Current Medication List: was personally reviewed by me Laboratory Data Attestation: I reviewed the patient's lab results. Result diagrams: 11/03/20 13:35 11/03/20 13:35 Lab Results 11/03/20 11/03/20 11/03/20 Range/Units 13:35 13:35 14:45 WBC 14.52 H (4.8-10.8) K/uL RBC 4.06 L (4.7-6.1) M/uL Hgb 12.5 L (14.0-18.0) g/dL Hct 38.6 L (42-52) % MCV 95.1 (80-100) fL MCH 30.8 (25-34) pg MCHC 32.4 (32-36) g/dL RDW Std Deviation 51.8 H (36.4-46.3) fL RDW Coeff of Jeffrey 14.9 H (11.5-14.5) % Plt Count 275 (130-400) K/uL MPV 10.6 H (7.4-10.4) fL Immature Gran % (Auto) 0.3 % Neut % (Auto) 69.7 % Lymph % (Auto) 16.8 % [place] % (Auto) 13.1 % Eos % (Auto) 0.0 % Baso % (Auto) 0.1 % Neut # (Auto) 10.13 H (1.4-6.5) K/uL Lymph # (Auto) 2.44 (1.2-3.4) K/uL [place] # (Auto) 1.90 H (0.11-0.59) K/uL Eos # (Auto) 0.00 (0-0.5) K/uL Baso # (Auto) 0.01 (0-0.2) K/uL Immature Gran # (Auto) 0.04 H (0.00-0.02) K/uL Sodium 140 (136-145) mmol/L Potassium 5.5 H (3.5-5.1) mmol/L Chloride 110 H (98-107) mmol/L Carbon Dioxide 26 (21-32) mmol/L Anion Gap 4.0 (3-11) BUN 23 H (7-18) mg/dl Creatinine 1.56 H (0.6-1.4) mg/dl Est Cr Clr Drug Dosing Not Reportable Est GFR ( Amer) 46.3 Est GFR (Non-Af Amer) 39.9 BUN/Creatinine Ratio 14.9 (10-20) Glucose 113 H (70-99) mg/dl Calcium 11.3 H (8.5-10.1) mg/dl Total Bilirubin 1.3 H (0.2-1) mg/dl AST 23 (15-37) U/L ALT 17 (12-78) U/L Alkaline Phosphatase 83 (45-117) U/L Total Protein 7.3 (6.4-8.2) gm/dl Albumin 3.2 L (3.4-5.0) gm/dl Globulin 4.1 H (2.5-4.0) gm/dl Albumin/Globulin Ratio 0.8 L (0.9-2) Urine Color Yellow Urine Appearance Clear (Clear) Urine pH 5.0 (4.5-7.5) Ur Specific [place] 1.021 (1.000-1.030) Urine Protein Trace H (Negative) Urine Glucose (UA) Negative (Negative) Urine Ketones Trace H (Negative) Urine Blood 2+ H (Negative) Urine Nitrite Negative (Negative) Urine Bilirubin Negative (Negative) Urine Urobilinogen Negative (Negative) Ur Leukocyte Esterase Negative (Negative) Urine WBC (Auto) 1-5 (0-5) /hpf Urine RBC (Auto) 10-30 H (0-4) /hpf U Hyaline Cast (Auto) 1-5 (0-5) /lpf U Epithel Cells (Auto) 5-10 H (0-5) /lpf Urine Bacteria (Auto) Negative (Negative) COVID-19 Eval Order 11/03/20 Range/Units 15:51 WBC (4.8-10.8) K/uL RBC (4.7-6.1) M/uL Hgb (14.0-18.0) g/dL Hct (42-52) % MCV (80-100) fL MCH (25-34) pg MCHC (32-36) g/dL RDW Std Deviation (36.4-46.3) fL RDW Coeff of Jeffrey (11.5-14.5) % Plt Count (130-400) K/uL MPV (7.4-10.4) fL Immature Gran % (Auto) % Neut % (Auto) % Lymph % (Auto) % [place] % (Auto) % Eos % (Auto) % Baso % (Auto) % Neut # (Auto) (1.4-6.5) K/uL Lymph # (Auto) (1.2-3.4) K/uL [place] # (Auto) (0.11-0.59) K/uL Eos # (Auto) (0-0.5) K/uL Baso # (Auto) (0-0.2) K/uL Immature Gran # (Auto) (0.00-0.02) K/uL Sodium (136-145) mmol/L Potassium (3.5-5.1) mmol/L Chloride (98-107) mmol/L Carbon Dioxide (21-32) mmol/L Anion Gap (3-11) BUN (7-18) mg/dl Creatinine (0.6-1.4) mg/dl Est Cr Clr Drug Dosing Est GFR ( Amer) Est GFR (Non-Af Amer) BUN/Creatinine Ratio (10-20) Glucose (70-99) mg/dl Calcium (8.5-10.1) mg/dl Total Bilirubin (0.2-1) mg/dl AST (15-37) U/L ALT (12-78) U/L Alkaline Phosphatase (45-117) U/L Total Protein (6.4-8.2) gm/dl Albumin (3.4-5.0) gm/dl Globulin (2.5-4.0) gm/dl Albumin/Globulin Ratio (0.9-2) Urine Color Urine Appearance (Clear) Urine pH (4.5-7.5) Ur Specific [place] (1.000-1.030) Urine Protein (Negative) Urine Glucose (UA) (Negative) Urine Ketones (Negative) Urine Blood (Negative) Urine Nitrite (Negative) Urine Bilirubin (Negative) Urine Urobilinogen (Negative) Ur Leukocyte Esterase (Negative) Urine WBC (Auto) (0-5) /hpf Urine RBC (Auto) (0-4) /hpf U Hyaline Cast (Auto) (0-5) /lpf U Epithel Cells (Auto) (0-5) /lpf Urine Bacteria (Auto) (Negative) COVID-19 Eval Order Covid19 IDNow [facility] MDM Narrative Patient presents with worsening mental status upon baseline of dementia. He is DNR and on hospice. Son reports that they feel they are no longer able to take care of him at home as he is declining and becoming more difficult to handle at home even with 24-hour nursing care. See the details above. The patient's exam was relatively unremarkable for acute disease. He does seem to be easily agitated will. He awakens but seems to be somewhat confused speaking randomly and closing his eyes regularly. He is in no distress. The patient's laboratory studies reveal a white blood cell count of 14.5. Hemoglobin is 12.5. Potassium was 5.5. BUN is 23 and creatinine is 1.56. Analysis did not show evidence of acute infection. I did talk with protective services case worker about the patient. They called [facility] to see if they would accept the patient. They cannot accept the patient at this time but might be able to in the near future. I spoke with the hospitalist, who will see the patient for further evaluation and hopeful placement as the family feels that they are unable to take care of the patient home any longer. Impression & Plan Dementia Discharge Plan Visit Data Chief Complaint: Altered Mental Status ED Provider: Prince Polanco Discharge Problem: Dementia Patient Disposition: Being Evaluated by Hospitalist Forms Stand Alone Forms: My [facility] Prescriptions Prescriptions: No Action donepezil [Aricept] 10 mg Tablet 10 mg PO QDL RF: 0 aspirin 81 mg Tablet,Delayed Release (Dr/Ec) 81 mg PO QAM RF: 0 citalopram [Celexa] 20 mg Tablet 20 mg PO QDL RF: 0 lisinopril 10 mg Tablet 10 mg PO QDL RF: 0 esomeprazole magnesium [Nexium] 20 mg Capsule,Delayed Release(Dr/Ec) 20 mg PO DAILY RF: 0 memantine [Namenda] 5 mg tablet 5 mg PO BID RF: 0 Referrals Referrals: Orestes Wesley MD [Primary Care Provider] -
--- NOTE | 2020-11-03 13:19 | XRay Report ---
SINGLE VIEW CHEST CLINICAL HISTORY: Generalized weakness. FINDINGS: An AP, portable, semierect chest radiograph is compared to study dated 08/02/2020. The exami nation is degraded by portable technique and apical lordotic positioning. The patient is status post midline sternotomy The heart is enlarged noting atherosclerotic calcification of the thoracic aorta. The pulmonary vasculature is noncongested. Chronic interstitial thickening is similar to previous. No airspace consolidation or large pleural effusion is identified. No pneumothorax is seen. The skeleta l structures are osteopenic. The bony thorax is grossly intact. Degenerative change is noted in the s houlders. Superior subluxation of the humeral heads suggest chronic bilateral rotator cuff injury. IMPRESSION: Cardiomegaly with no acute cardiopulmonary abnormality. ACT 112: Negative or not required by law. Electronically signed by: Justus Watson M.D. 11/03/2020 1:18 PM
[2020-11-03 13:44] LABS: Basophils # (auto) 0.01 K/uL (0-0.2); Basophils % (auto) 0.1 %; Hematocrit (blood only) 38.6 % (42-52); Hemoglobin 12.5 g/dL (14.0-18.0); Immature Granulocytes # (auto) 0.04 K/uL (0.00-0.02); Immature Granulocytes % (auto) 0.3 %; Lymphocytes # (auto) 2.44 K/uL (1.2-3.4); Lymphocytes % (auto) 16.8 %; Mean Corpuscular Hemoglobin 30.8 pg (25-34); Mean Corpuscular Hgb Conc 32.4 g/dL (32-36); Mean Corpuscular Volume 95.1 fL (80-100); Mean Platelet Volume 10.6 fL (7.4-10.4); Monocytes % (auto) 13.1 %; Neutrophils # (auto) 10.13 K/uL (1.4-6.5); Neutrophils % (auto) 69.7 %; Platelet Count 275 K/uL (130-400); RDW Coefficient of Variation 14.9 % (11.5-14.5); RDW Standard Deviation 51.8 fL (36.4-46.3); Red Blood Count 4.06 M/uL (4.7-6.1); White Blood Count 14.52 K/uL (4.8-10.8)
[2020-11-03 14:00] LABS: Alanine Aminotransferase 17 U/L (12-78); Albumin Level 3.2 gm/dl (3.4-5.0); Aspartate Aminotransferase 23 U/L (15-37); BUN Creatinine Ratio 14.9 (10-20); Blood Urea Nitrogen 23 mg/dl (7-18); Calcium 11.3 mg/dl (8.5-10.1); Carbon Dioxide 26 mmol/L (21-32); Chloride 110 mmol/L (98-107); Est GFR (African American) 46.3; Est GFR (Non-African American) 39.9; Glucose 113 mg/dl (70-99); Potassium 5.5 mmol/L (3.5-5.1); Sodium 140 mmol/L (136-145)
[2020-11-03 14:03] LABS: Albumin Globulin Ratio 0.8 (0.9-2); Alkaline Phosphatase 83 U/L (45-117); Bilirubin,Total 1.3 mg/dl (0.2-1); Globulin 4.1 gm/dl (2.5-4.0); Total Protein 7.3 gm/dl (6.4-8.2)
[2020-11-03 15:00] LABS: Appearance Urine Clear (Clear); Bacteria Urine Automated Negative (Negative); Bilirubin Urine Negative (Negative); Blood Urine 2+ (Negative); Color Urine Yellow; Glucose Urine UA Negative (Negative); Ketones Urine Trace (Negative); Leukocyte Esterase Urine Negative (Negative); Nitrite Urine Negative (Negative); Protein Urine Trace (Negative); Specific Gravity Urine 1.021 (1.000-1.030); Urobilinogen Urine Negative (Negative)
[2020-11-03] MEDS ORDERED: ACETAMINOPHEN 325 MG TAB PO PRN (18:38)
--- NOTE | 2020-11-03 19:00 | History & Physical Report ---
Date of Service November 03, 2020 Assessment & Plan (1) Altered mental status: Dementia with aggressive behaviors and sundowning that has been getting worse over the past week per his son. Son reports it was like someone flipped a switch. Will perform head CT to screen for acute stroke. No other underlying reversible cause for encephalopathy is seen at this time, so likely related to dementia progression. Cont supportive care and if he sundowns severely with aggressive behavior will consider olanzapine. (2) Alzheimer's dementia: reorient as necessary, placement into facility with help from Case Management as a goal. Patient is currently on Hospice. Cont citalopram and Namenda per home regimen. He is now off donepezil. (3) HTN (hypertension): Elevated in the ER likely related to aggressive behavior and the excited situation leading up to his visit today. Will see how things cam down on the floor. Holding lisinopril in setting of hyperkalemia. Will consider hydralaizne PRN if needed. Clonidine patch also considered but must consider side effect of drowsiness. (4) CKD (chronic kidney disease) stage 3, GFR 30-59 ml/min: at his baseline. Avoid nephrotoxic medications and renally dose medications as needed. (5) CAD (coronary artery disease): s/p CABG in past. Cont medical management with ASA 81mg per home regimen. (6) DVT prophylaxis: SCDs/Lovenox DNR/DNI-Hospice patient here for placement Dispo-pending ability to be placed into facility. Lorri Parson DO [facility] Hospitalist Admission and Anticipated Discharge Date Admission Date: November 03, 2020 History of Present Illness Chief Complaint: aggressive behavior Primary Care Provider: Orestes Wesley MD The patient is a 85-year-old man on hospice with a history of Alzheimer's dementia and aggressive sundowning behavior recently. He lives at home with his son and has 24-hour caregivers however, he has become more difficult to handle in the home environment with only one provider present. History is obtained from the son by phone. The patient is altered and cannot give a history or review of symptoms. The son is his field training agent and power of district attorney. He reports that and came off of it completely 2 weeks ago. The following week he saw his dad improve and instead he was sleeping better at night. However, during the last few days he has been flying out of his bed at night onto the floor having hallucinations. The son describes it "like someone flipped a switch and it is too hard to control." Work-up in the ER generally reveals no evidence of infection. The patient has been extremely agitated and his blood pressure is elevated as a result. He is on lisinopril at home but current potassium is 5.5 so this will be held. This patient is a hospice patient and his son was very clear that no aggressive work-up should be undertaken. This admission is more to help and facilitate placement of his father into a facility where he can have more care and help at his disposal. I clarified with the son that he is a DO NOT RESUSCITATE DO NOT INTUBATE. I reviewed the outpatient records. I was also notified by his son that sedatives such as Ativan and narcotics tend to have the opposite effect on his dad and cause him to be more alert awake and aggressive. Allergies Allergy/AdvReac Type Severity Reaction Status Date / Time Penicillins Allergy Unknown ANAPHYLAXIS Verified 11/03/20 14:03 Home Medications Medication Instructions Recorded Confirmed Type aspirin 81 mg PO QAM 12/27/18 11/03/20 History citalopram [Celexa] 20 mg PO QDL 12/27/18 11/03/20 History lisinopril 10 mg PO QDL 12/27/18 11/03/20 History esomeprazole magnesium [Nexium] 20 mg PO DAILY 08/02/20 11/03/20 History memantine [Namenda] 5 mg PO BID 08/02/20 11/03/20 History Past Med/Surg History Medical History (Updated 11/03/20 @ 18:53 by Lorri Parson DO) Alzheimer's dementia CAD (coronary artery disease) CKD (chronic kidney disease) stage 3, GFR 30-59 ml/min Dyslipidemia Renal cyst Renal stone Surgical History Hx of CABG Hx of cardiac cath Family History Other Family history non-contributory Social History Smoking Status: Unknown if ever smoked Second Hand Exposure: No; Hx Alcohol Use: No Hx Substance Use: No Preferred Language: Central African Communication Ability: Effective Natural History Collections Curator Required: No Beliefs That Will Affect Care: None marital status: / Current Living Situation: Family Current Living Situation Comment: 24 hour care Other Information That Helps Us Care for You: No Feels Safe at Home: Yes Assistive Devices: Walker Review of Systems Review of Systems: Unobtainable due to mental health condition (dementia) Physical Exam Physical Exam: CONSTITUTIONAL: WNWD, vitals as above, generally appears agitated and is fidgetng and mumbling to himself with his eyes closed. He is hiccupping. EYES: PERRL, normal conjunctivae, no scleral icterus ENT: external ear and nose normal, oropharynx clear, MMM RESPIRATORY: clear to auscultation bilaterally, no crackles, rales or wheezes, normal respiratory effort -limited exam as patient is holding arms close by his side CARDIOVASCULAR: regular rate and rhythm, S1 and 2 heard without murmurs, gallops or rubs, no JVD, no peripheral edema GASTROINTESTINAL: soft, nontender, nondistended, no guarding MUSCULOSKELETAL: strength 5/5 throughout, head is normocephalic and there is a small brown nini ?ecchymosis under his right eye area. SKIN: warm and dry NEUROLOGIC: unable to obtain patellar DTRs as patient was resisting examination, no facial palsy, agitated and exam is difficult to perform. He is moving all extremities equally. PSYCHIATRIC: uncooperative with exam, unable to converse or follow instructions. Babbling, delirious Results & Data Results & Data ([facility]) Vital Signs (Past 12 Hours) Vital Signs Temp Pulse Pulse Resp BP BP BP 11/03/20 17:59 37.3 C 66 20 198/97 H 11/03/20 17:01 20 170/94 H 11/03/20 15:45 60 18 171/86 H 11/03/20 13:55 66 18 11/03/20 12:53 11/03/20 12:39 36.7 C 69 20 166/83 H Pulse Ox 11/03/20 17:59 99 11/03/20 17:01 98 11/03/20 15:45 97 11/03/20 13:55 98 11/03/20 12:53 98 11/03/20 12:39 98 Laboratory Results Short CBC 11/03/20 Range/Units 13:35 WBC 14.52 H (4.8-10.8) K/uL Hgb 12.5 L (14.0-18.0) g/dL Hct 38.6 L (42-52) % Plt Count 275 (130-400) K/uL BMP 11/03/20 13:35 Sodium 140 Potassium 5.5 H Chloride 110 H Carbon Dioxide 26 BUN 23 H Creatinine 1.56 H Glucose 113 H Calcium 11.3 H Liver Function 11/03/20 Range/Units 13:35 Total Bilirubin 1.3 H (0.2-1) mg/dl AST 23 (15-37) U/L ALT 17 (12-78) U/L Alkaline Phosphatase 83 (45-117) U/L Albumin 3.2 L (3.4-5.0) gm/dl Urine 11/03/20 Range/Units 14:45 Urine Color Yellow Urine Appearance Clear (Clear) Urine pH 5.0 (4.5-7.5) Ur Specific [place] 1.021 (1.000-1.030) Urine Protein Trace H (Negative) Urine Glucose (UA) Negative (Negative) Diagnostic Findings [facility], [phone] XRay Report Patient: CHRIS JEANAdmit Date: 11/03/20#: [id number]: [address] [place] [address] ID:[id number]: Date: [address] [place] [address] Zip: [place], [place] [address]Uvj: 85Location: EDSex: MRoom/Bed:Att Phy:Diagnosis: XPri Phy: Orestes Wesley MDService Date: 11/03/20Fa Phy:Interpreting Phy: Justus Watson MDAdmit Phy: Ordering Phy: Prince Polanco D.O. cc: ~ SINGLE VIEW CHEST CLINICAL HISTORY: Generalized weakness. FINDINGS: An AP, portable, semierect chest radiograph is compared to study dated 08/02/2020. The examination is degraded by portable technique and apical lordotic positioning. The patient is status post midline sternotomy The heart is enlarged noting atherosclerotic calcification of the thoracic aorta. The pulmonary vasculature is noncongested. Chronic interstitial thickening is similar to previous. No airspace consolidation or large pleural effusion is identified. No pneumothorax is seen. The skeletal structures are osteopenic. The bony thorax is grossly intact. Degenerative change is noted in the shoulders. Superior subluxation of the humeral heads suggest chronic bilateral rotator cuff injury. IMPRESSION: Cardiomegaly with no acute cardiopulmonary abnormality. ACT 112: Negative or not required by law. Electronically signed by: Justus Watson M.D. 11/03/2020 1:18 PM Dictated: 11/03/20 1317Transcribed: 11/03/20 1317 Medications Administered Current Inpatient Medications Acetaminophen (Acetaminophen 325 Mg Tab) 650 mg PO Q4H PRN PRN Reason: pain/fever Stop: 12/03/20 18:37 Aspirin (Aspirin 81 Mg Ectab) 81 mg PO QAM [facility] Stop: 12/04/20 08:59 Citalopram Hydrobromide (Citalopram 20 Mg Tab) 20 mg PO QDL [facility] Stop: 12/04/20 11:29 Memantine (Memantine Hcl 5 Mg Tab) 5 mg PO BID [facility] Stop: 12/03/20 20:59 Non-Formulary Medication (Esomeprazole Magnesium [Nexium]) 20 mg PO DAILY [facility] Stop: 12/04/20 08:59 Olanzapine (Olanzapine 10 Mg/2.1 Ml Sdv) 2.5 mg IM Q8H PRN PRN Reason: severe agitation/delirium Stop: 12/03/20 18:44 Code Status & VTE Plan VTE Prophylaxis Plan VTE Prophylaxis will be ordered: Yes (1) Altered mental status Altered mental status type: unspecified Qualified Code(s): R41.82 - Altered mental status, unspecified
[2020-11-03] MEDS: MEMANTINE HCL 5 MG TAB PO SCH (21:59)
[2020-11-04] MEDS: OLANZapine 10 MG/2.1 ML SDV IM PRN (00:52)
[2020-11-04 06:01] LABS: Hematocrit (blood only) 37.5 % (42-52); Hemoglobin 11.8 g/dL (14.0-18.0); Mean Corpuscular Hgb Conc 31.5 g/dL (32-36); Mean Corpuscular Volume 95.4 fL (80-100); Mean Platelet Volume 10.8 fL (7.4-10.4); Platelet Count 265 K/uL (130-400); RDW Coefficient of Variation 15.2 % (11.5-14.5); Red Blood Count 3.93 M/uL (4.7-6.1); White Blood Count 11.77 K/uL (4.8-10.8)
[2020-11-04 06:25] LABS: BUN Creatinine Ratio 17.9 (10-20); Blood Urea Nitrogen 24 mg/dl (7-18); Carbon Dioxide 28 mmol/L (21-32); Chloride 110 mmol/L (98-107); Est GFR (African American) 54.1; Est GFR (Non-African American) 46.7; Glucose 88 mg/dl (70-99); Magnesium 2.2 mg/dl (1.8-2.4); Potassium 4.3 mmol/L (3.5-5.1); Sodium 141 mmol/L (136-145)
[2020-11-04 06:31] LABS: Creatine Kinase 438 U/L (39-308)
[2020-11-04] MEDS ORDERED: PNEUMOCOCCAL Polysaccharide Vaccine 25mcg/0.5mL vial/Syr IM ONE (07:00)
[2020-11-04] MEDS ORDERED: INFLUENZA VACCINE HIGH DOSE 65+ 0.7 ML SYR IM ONE (07:00)
[2020-11-04] MEDS: ASPIRIN 81 MG ECTAB PO SCH (08:46)
[2020-11-04] MEDS: PANTOprazole 40 MG TAB PO SCH (08:46)
[2020-11-04] MEDS: MEMANTINE HCL 5 MG TAB PO SCH (08:46)
--- NOTE | 2020-11-04 17:42 | Hospitalist Progress Note ---
Date of Service November 04, 2020 Assessment & Plan (1) Altered mental status: Dementia with aggressive behaviors and sundowning that has been getting worse over the past week per his son. Son reports it was like someone flipped a switch. Will perform head CT to screen for acute stroke. No other underlying reversible cause for encephalopathy is seen at this time, so likely related to dementia progression. Cont supportive care and if he sundowns severely with aggressive behavior will consider olanzapine. As he is not eating much would like to run some maintenance fluids on him. Also workup of underlying cause has not shown much. Will start scheduled APAP and Zofran to empirically treat pain and nausea, respectively, and see if this improves his mental status. (2) Alzheimer's dementia: reorient as necessary, placement into facility with help from Case Management as a goal. Patient is currently on Hospice. Cont citalopram and Namenda per home regimen. He is now off donepezil. currently, not tolerating anything PO per nursing staff. (3) HTN (hypertension): currently at goal as he is more calm today. Lisinopril is held as he is not taking any pills. (4) CKD (chronic kidney disease) stage 3, GFR 30-59 ml/min: at his baseline. Avoid nephrotoxic medications and renally dose medications as needed. (5) CAD (coronary artery disease): s/p CABG in past. Cont medical management with ASA 81mg per home regimen when able to swallow. (6) DVT prophylaxis: SCDs/Lovenox DNR/DNI-Hospice patient here for placement Dispo-pending ability to be placed into facility. Lorri Parson DO [facility] Hospitalist Admission and Anticipated Discharge Date Admission Date: November 04, 2020 Subjective cc: 85 yo M with end stage dementia presented brought in by family with increased agitation at home -continues to be agitated with staff when moved around -required one dose of olanzapine overnight which helped to sedate him per nursing staff -it was not feasible so far to send him for CT scan, and holding him down for this diagnostic study would not be in line with family wishes -patient is more calm with occasion unintelligible mumbling when left alone -he is not eating and becomes aggressive with staff when they try to feed him. Review of Systems Review of Systems: All systems reviewed & are unremarkable except as noted in Subjective Physical Exam Physical Exam: CONSTITUTIONAL: WNWD, vitals as above, generally appears agitated and is fidgetng and mumbling to himself with his eyes closed. He is hiccupping. EYES: PERRL, normal conjunctivae, no scleral icterus ENT: external ear and nose normal, MMM RESPIRATORY: clear to auscultation bilaterally, no crackles, rales or wheezes, normal respiratory effort CARDIOVASCULAR: regular rate and rhythm, S1 and 2 heard without murmurs, gallops or rubs, no JVD, no peripheral edema GASTROINTESTINAL: soft, nontender, nondistended, no guarding MUSCULOSKELETAL: strength 5/5 throughout SKIN: warm and dry NEUROLOGIC: unable to obtain patellar DTRs as patient was resisting examination, no facial palsy, agitated and exam is difficult to perform. He is moving all extremities equally. PSYCHIATRIC: uncooperative with exam, unable to converse or follow instructions. Babbling, appears inattentive and delirious Results & Data Results & Data ([facility]) Vital Signs (Past 12 Hours) Vital Signs Temp Pulse Resp BP Pulse Ox 11/04/20 15:03 36.6 C 66 18 145/97 H 97 11/04/20 08:04 20 11/04/20 06:10 126/59 L Laboratory Results Short CBC 11/04/20 Range/Units 05:19 WBC 11.77 H (4.8-10.8) K/uL Hgb 11.8 L (14.0-18.0) g/dL Hct 37.5 L (42-52) % Plt Count 265 (130-400) K/uL BMP 11/04/20 05:19 Sodium 141 Potassium 4.3 D Chloride 110 H Carbon Dioxide 28 BUN 24 H Creatinine 1.37 Glucose 88 Calcium 9.0 D Cardiac Enzymes 11/04/20 Range/Units 05:19 Total Creatine Kinase 438 H (39-308) U/L Medications Administered Current Inpatient Medications Aspirin (Aspirin 81 Mg Ectab) 81 mg PO QAM [facility] Stop: 12/04/20 08:59 Last Admin: 11/04/20 08:46 Dose: Not Given Documented by: Citalopram Hydrobromide (Citalopram 20 Mg Tab) 20 mg PO QDL [facility] Stop: 12/04/20 11:29 Memantine (Memantine Hcl 5 Mg Tab) 5 mg PO BID [facility] Stop: 12/03/20 20:59 Last Admin: 11/04/20 08:46 Dose: Not Given Documented by: Olanzapine (Olanzapine 10 Mg/2.1 Ml Sdv) 2.5 mg IM Q8H PRN PRN Reason: severe agitation/delirium Stop: 12/03/20 18:44 Last Admin: 11/04/20 00:52 Dose: 2.5 mg Documented by: Pantoprazole Sodium (Pantoprazole 40 Mg Tab) 40 mg PO DAILY [facility] Stop: 12/04/20 08:59 Last Admin: 11/04/20 08:46 Dose: Not Given Documented by: (1) Altered mental status Altered mental status type: unspecified Qualified Code(s): R41.82 - Altered mental status, unspecified
[2020-11-04] MEDS: ONDANSETRON INJ 2 MG/ML 2 ML VIAL IV SCH (18:30)
[2020-11-04] MEDS: D5W NORMOSOL-R 1,000 ML IV SCH (18:33)
[2020-11-04] MEDS: ACETAMINOPHEN 1,000 MG/100 ML VIAL IV SCH (20:21)
--- NOTE | 2020-11-04 21:57 | Electrocardiogram Report ---
Test Reason : Blood Pressure : / mmHG Vent. Rate : 060 BPM Atrial Rate : 060 BPM P-R Int : 166 ms QRS Dur : 092 ms QT Int : 428 ms P-R-T Axes : 022 055 183 degrees QTc Int : 428 ms Poor data quality, interpretation may be adversely affected Normal sinus rhythm Abnormal ECG When compared with ECG of 02-AUG-2020 20:14, ST now depressed in Anterior leads Confirmed by Angel Delgadillo ([id number]) on 11/04/2020 9:56:54 PM Referred By: REFERRED SELF Confirmed By:Angel Delgadillo
[2020-11-05] MEDS: ONDANSETRON INJ 2 MG/ML 2 ML VIAL IV SCH ×2 (01:49→10:31)
[2020-11-05] MEDS: ACETAMINOPHEN 1,000 MG/100 ML VIAL IV SCH ×3 (04:23→22:31)
[2020-11-05] MEDS: D5W NORMOSOL-R 1,000 ML IV SCH (08:16)
[2020-11-05 11:58] LABS: Hematocrit (blood only) 36.5 % (42-52); Hemoglobin 11.2 g/dL (14.0-18.0); Mean Corpuscular Hemoglobin 29.9 pg (25-34); Mean Corpuscular Hgb Conc 30.7 g/dL (32-36); Mean Corpuscular Volume 97.6 fL (80-100); Platelet Count 211 K/uL (130-400); RDW Coefficient of Variation 15.2 % (11.5-14.5); RDW Standard Deviation 54.1 fL (36.4-46.3); Red Blood Count 3.74 M/uL (4.7-6.1); White Blood Count 6.95 K/uL (4.8-10.8)
[2020-11-05 12:26] LABS: BUN Creatinine Ratio 16.7 (10-20); Blood Urea Nitrogen 23 mg/dl (7-18); Calcium 8.7 mg/dl (8.5-10.1); Carbon Dioxide 28 mmol/L (21-32); Chloride 113 mmol/L (98-107); Est GFR (African American) 55.1; Est GFR (Non-African American) 47.5; Glucose 104 mg/dl (70-99); Sodium 144 mmol/L (136-145); Troponin I 0.019 ng/ml (0-0.045)
--- NOTE | 2020-11-05 14:39 | Electrocardiogram Report ---
Test Reason : Blood Pressure : / mmHG Vent. Rate : 050 BPM Atrial Rate : 050 BPM P-R Int : 154 ms QRS Dur : 098 ms QT Int : 488 ms P-R-T Axes : 035 043 177 degrees QTc Int : 444 ms Sinus bradycardia Abnormal ECG When compared with ECG of 03-NOV-2020 18:57, No significant change was found Confirmed by Dayton Arias ([id number]) on 11/05/2020 2:39:14 PM Referred By: REFERRED SELF Confirmed By:Dayton Arias
[2020-11-05] MEDS: OLANZapine 10 MG/2.1 ML SDV IM PRN (23:16)
--- NOTE | 2020-11-05 23:32 | Hospitalist Progress Note ---
Date of Service November 05, 2020 Assessment & Plan (1) Altered mental status: Dementia with aggressive behaviors and sundowning that has been getting worse over the past week per his son. Son reports it was like someone flipped a switch. Unable to perform CT head to rule out stroke 2/2 agitation. However, there are no gross focal deficits on exam. Currently appears back to baseline mental status. No other underlying reversible cause for encephalopathy is seen at this time, so likely related to dementia progression. Cont supportive care and if he sundowns severely with aggressive behavior will consider olanzapine. (2) Alzheimer's dementia: reorient as necessary, placement into facility with help from Case Management as a goal. Patient is currently on Hospice. Cont citalopram and Namenda per home regimen. He is now off donepezil. currently, not tolerating anything PO per nursing staff. (3) HTN (hypertension): at goal, cont holding lisinopril to minimize pill burden. Will restart i f BP rises. (4) CKD (chronic kidney disease) stage 3, GFR 30-59 ml/min: at his baseline. Avoid nephrotoxic medications and renally dose medications as needed. (5) CAD (coronary artery disease): s/p CABG in past. Cont medical management with ASA 81mg per home regimen when able to swallow. (6) DVT prophylaxis: SCDs/Lovenox DNR/DNI-Hospice patient here for placement Dispo-pending ability to be placed into facility. Cleared from a medical standpoint to transfer to a facility any time. [facility] and Anticipated Discharge Date Admission Date: November 04, 2020 Subjective cc: 85 yo M with end stage dementia presented brought in by family with increased agitation at home -continues to be agitated with staff when moved around -appears more interactive today but is still hallucinating and talking about things that aren't there -he cannot carry on a conversation and appears to get agitated during the conversation with himself. Review of Systems Review of Systems: Unobtainable due to mental health condition (dementia with delirium) Physical Exam Physical Exam: CONSTITUTIONAL: WNWD, vitals as above, NAD, hiccupping has stopped. EYES: normal conjunctivae, no scleral icterus ENT: external ear and nose normal, MMM RESPIRATORY: clear to auscultation bilaterally, no crackles, rales or wheezes, normal respiratory effort CARDIOVASCULAR: regular rate and rhythm, S1 and 2 heard without murmurs, gallops or rubs, no JVD, no peripheral edema GASTROINTESTINAL: soft, nontender, nondistended, no guarding MUSCULOSKELETAL: strength 5/5 throughout SKIN: warm and dry NEUROLOGIC: no facial palsy, exam limited with patient uncooperative and unable to follow instructions. Disoriented, inattentive. PSYCHIATRIC: uncooperative with exam, unable to converse or follow instructions. Babbling, appears inattentive and delirious Results & Data Results & [facility] ([facility]) Vital Signs (Past 12 Hours) Vital Signs Temp Pulse Resp BP Pulse Ox 11/05/20 16:02 36.4 C L 51 L 20 128/70 94 Laboratory Results Short CBC 11/05/20 Range/Units 11:42 WBC 6.95 (4.8-10.8) K/uL Hgb 11.2 L (14.0-18.0) g/dL Hct 36.5 L (42-52) % Plt Count 211 (130-400) K/uL BMP 11/05/20 11/05/20 11:42 12:30 Sodium 144 Potassium 4.5 Chloride 113 H Carbon Dioxide 28 BUN 23 H Creatinine 1.35 Glucose 104 H Calcium 8.7 Cardiac Enzymes 11/05/20 Range/Units 11:42 Troponin I 0.019 (0-0.045) ng/ml Medications Administered Current Inpatient Medications Aspirin (Aspirin 81 Mg Ectab) 81 mg PO QAM [facility] Stop: 12/04/20 08:59 Last Admin: 11/04/20 08:46 Dose: Not Given Documented by: Citalopram Hydrobromide (Citalopram 20 Mg Tab) 20 mg PO QDL [facility] Stop: 12/04/20 11:29 Memantine (Memantine Hcl 5 Mg Tab) 5 mg PO BID [facility] Stop: 12/03/20 20:59 Last Admin: 11/04/20 08:46 Dose: Not Given Documented by: Olanzapine (Olanzapine 10 Mg/2.1 Ml Sdv) 2.5 mg IM Q8H PRN PRN Reason: severe agitation/delirium Stop: 12/03/20 18:44 Last Admin: 11/05/20 23:16 Dose: 2.5 mg Documented by: Pantoprazole Sodium (Pantoprazole 40 Mg Tab) 40 mg PO DAILY [facility] Stop: 12/04/20 08:59 Last Admin: 11/04/20 08:46 Dose: Not Given Documented by: (1) Altered mental status Altered mental status type: unspecified Qualified Code(s): R41.82 - Altered mental status, unspecified
[2020-11-06] MEDS: ASPIRIN 81 MG ECTAB PO SCH ×2 (09:58→10:04)
[2020-11-06] MEDS: PANTOprazole 40 MG TAB PO SCH ×2 (09:58→10:03)
[2020-11-06] MEDS: MEMANTINE HCL 5 MG TAB PO SCH ×3 (09:58→20:33)
[2020-11-06] MEDS: CITALOPRAM 20 MG TAB PO SCH ×2 (09:58→10:04)
--- NOTE | 2020-11-06 14:20 | Hospitalist Progress Note ---
Date of Service November 06, 2020 Assessment & Plan (1) Altered mental status: Dementia with aggressive behaviors and sundowning that has been getting worse over the past week per his son. Son reports it was like someone flipped a switch. Unable to perform CT head to rule out stroke 2/2 agitation. However, there are no gross focal deficits on exam. Currently appears back to baseline mental status. No other underlying reversible cause for encephalopathy is seen at this time, so likely related to dementia progression. Cont supportive care and if he sundowns severely with aggressive behavior will consider olanzapine. (2) Alzheimer's dementia: reorient as necessary, placement into facility with help from Case Management as a goal. Patient is currently on Hospice. Cont citalopram and Namenda per home regimen. He is now off donepezil. currently, not tolerating anything PO per nursing staff. (3) HTN (hypertension): at goal, cont holding lisinopril to minimize pill burden. Will restart i f BP rises. (4) CKD (chronic kidney disease) stage 3, GFR 30-59 ml/min: at his baseline. Avoid nephrotoxic medications and renally dose medications as needed. (5) CAD (coronary artery disease): s/p CABG in past. Cont medical management with ASA 81mg per home regimen when able to swallow. (6) DVT prophylaxis: SCDs/Lovenox DNR/DNI-Hospice patient here for placement Dispo-pending ability to be placed into facility. Cleared from a medical standpoint to transfer to a facility any time. Lorri Parson DO [facility] Hospitalist Admission and Anticipated Discharge Date Admission Date: November 04, 2020 Subjective cc: 85 yo M with end stage dementia presented brought in by family with increased agitation at home -continues to be agitated with staff when moved around -he cannot carry on a conversation and appears to be conversing with himself or folks who arent there. Review of Systems 2 Review of Systems: Unobtainable due to mental health condition (dementia) Physical Exam Physical Exam: CONSTITUTIONAL: WNWD, vitals as above, NAD EYES: normal conjunctivae, no scleral icterus ENT: external ear and nose normal, MMM RESPIRATORY: clear to auscultation bilaterally, no crackles, rales or wheezes, normal respiratory effort CARDIOVASCULAR: regular rate and rhythm, S1 and 2 heard without murmurs, gallops or rubs, no JVD, no peripheral edema GASTROINTESTINAL: soft, nontender, nondistended, no guarding MUSCULOSKELETAL: strength 5/5 throughout SKIN: warm and dry NEUROLOGIC: no facial palsy, exam limited with patient uncooperative and unable to follow instructions. Disoriented, inattentive. PSYCHIATRIC: uncooperative with exam, unable to converse or follow instructions. Babbling, appears inattentive and delirious Results & Data Results & Data ([facility]) Vital Signs (Past 12 Hours) Vital Signs Temp Pulse Resp BP Pulse Ox 11/06/20 07:29 36.7 C 49 L 20 130/72 99 Medications Administered Current Inpatient Medications Aspirin (Aspirin 81 Mg Ectab) 81 mg PO QAM [facility] Stop: 12/04/20 08:59 Last Admin: 11/06/20 10:04 Dose: Not Given Documented by: Citalopram Hydrobromide (Citalopram 20 Mg Tab) 20 mg PO QDL [facility] Stop: 12/04/20 11:29 Last Admin: 11/06/20 10:04 Dose: Not Given Documented by: Memantine (Memantine Hcl 5 Mg Tab) 5 mg PO BID [facility] Stop: 12/03/20 20:59 Last Admin: 11/06/20 10:03 Dose: Not Given Documented by: Olanzapine (Olanzapine 10 Mg/2.1 Ml Sdv) 2.5 mg IM Q8H PRN PRN Reason: severe agitation/delirium Stop: 12/03/20 18:44 Last Admin: 11/05/20 23:16 Dose: 2.5 mg Documented by: Pantoprazole Sodium (Pantoprazole 40 Mg Tab) 40 mg PO DAILY [facility] Stop: 12/04/20 08:59 Last Admin: 11/06/20 10:03 Dose: Not Given Documented by: (1) Altered mental status Altered mental status type: unspecified Qualified Code(s): R41.82 - Altered mental status, unspecified
--- NOTE | 2020-11-06 16:47 | Palliative Care Consultation ---
Date of Consultation November 06, 2020 Assessment & Plan (1) Altered mental status: Agitated behaviors with dementia though he has characteristics of delirium with picking at sheets, hallucinations (seeing a dump truck outside the window) Would benefit from low dose routine antipsychotic. Could consider zyprexa ODT 2.5 mg BID though he has been refusing po meds. He is on SSRI which can be helpful. Altered mental status type: unspecified Qualified Code(s): R41.82 - Altered mental status, unspecified (2) Dementia: Progressive, on namenda. Alzheimer's disease onset: unspecified onset Dementia behavioral disturbance: with behavioral disturbance Dementia type: Alzheimer's Qualified Code(s): G30.9 - Alzheimer's disease, unspecified; F02.81 - Dementia in other diseases classified elsewhere with behavioral disturbance (3) Palliative care encounter: I spoke with his son, Donn, by phone today. He feels that he is not able to manage to keep his father at home at this time and would like to pursue SNF placement. He did confirm that goal is comfort directed and he would not want any interventions other than those for his comfort and safety. History of Present Illness Reason for Consultation: goals of care Requesting Physician: Dr. Parson Attending Physician: Lorri Parson, DO History of Present Illness 85 yo gentleman with advanced dementia who has been cared for by his son at home with 24 hour caregivers and hospice support. He had become increasingly agitated with aggressive behavior, particularly at night despite taking namenda and celexa. His son was not able to manage care for him at home. He has been resisting care at time and seems restless, picking at sheets and undressing since admission. He did receive IM zyprexa for agitation the last two nights. Allergies Allergy/AdvReac Type Severity Reaction Status Date / Time Penicillins Allergy Unknown ANAPHYLAXIS Verified 11/03/20 14:03 Home Medications Medication Instructions Recorded Confirmed Type aspirin 81 mg PO QAM 12/27/18 11/03/20 History citalopram [Celexa] 20 mg PO QDL 12/27/18 11/03/20 History lisinopril 10 mg PO QDL 12/27/18 11/03/20 History esomeprazole magnesium [Nexium] 20 mg PO DAILY 08/02/20 11/03/20 History memantine [Namenda] 5 mg PO BID 08/02/20 11/03/20 History Patient History Medical History (Updated 11/06/20 @ 17:12 by Kelsea Ramires MD) Alzheimer's dementia CAD (coronary artery disease) CKD (chronic kidney disease) stage 3, GFR 30-59 ml/min Dyslipidemia Renal cyst Renal stone Surgical History Hx of CABG Hx of cardiac cath Family History Other Family history non-contributory Social History Smoking Status: Unknown if ever smoked Second Hand Exposure: No; Hx Alcohol Use: No Hx Substance Use: No Preferred Language: Divehi Communication Ability: Effective Crystalizer Tender Required: No Beliefs That Will Affect Care: None marital status: / Current Living Situation: Family Current Living Situation Comment: 24 hour care Other Information That Helps Us Care for You: No Feels Safe at Home: Yes Assistive Devices: Walker Review of Systems Review of Systems: Unobtainable due to cognitive status [place] Symptom Assessment Scale Pain 0/3 by Pain AD Dyspnea by RDOS 0/3 Drowsiness 0/3 Palliative Performance Score 50% Physical Exam Constitutional: no acute distress restless Respiratory: normal respiratory effort; no labored breathing Gastrointestinal (Abdomen): Inspection/Auscultation: abdomen not distended Musculoskeletal: post polio syndrome Psychiatric: Orientation: + not oriented x 3 Results & Data ([facility]) Vital Signs (Past 12 Hours) Vital Signs Temp Pulse Pulse Resp BP BP Pulse Ox 11/06/20 15:19 98.2 F 70 16 156/64 H 95 11/06/20 07:29 98.1 F 49 L 20 130/72 99 PG Care Time/CCT Total # of Minutes Spent Total Time Spent with Patient: Total time spent is greater than 50% in coordination of care (as documented) at patient's floor/unit and/or counseling patient:50 minutes total time with more than 50% of time spent on goals of care, symptom management and family support Coding Level of Care Code 94013 Inpt Consult Level 2 Diagnoses Altered mental status R41.82 Altered mental status type: unspecified Dementia G30.9; F02.81 Alzheimer's disease onset: unspecified onset Dementia behavioral disturbance: with behavioral disturbance Dementia type: Alzheimer's Palliative care encounter Z51.5
[2020-11-06] MEDS ORDERED: PROMETHAZINE HCL 12.5 MG in SODIUM CHLORIDE 0.9% 50 ML IV PRN (22:55)
[2020-11-07] MEDS: ASPIRIN 81 MG ECTAB PO SCH (10:19)
[2020-11-07] MEDS: MEMANTINE HCL 5 MG TAB PO SCH ×2 (10:19→22:00)
[2020-11-07] MEDS: PANTOprazole 40 MG TAB PO SCH (10:19)
[2020-11-07] MEDS: CITALOPRAM 20 MG TAB PO SCH ×2 (12:05→14:41)
--- NOTE | 2020-11-07 12:35 | Palliative Care Progress Note ---
Date of Service November 07, 2020 Assessment & Plan (1) Palliative care encounter: Spoke with his son on the phone. He would like to be able to see his father prior to transfer to SNF. Arranged zoom meeting at 1130, unfortunately, Donn was sleepy and interaction was limited. Son was pleased and grateful to see his dad. Admission and Anticipated Discharge Date Admission Date: November 04, 2020 Subjective Sleeping but arousable. Did not receive zyprexa last night. Denies pain. Review of Systems Review of Systems: Unobtainable due to cognitive status Physical Exam Constitutional: comfortable Respiratory: normal respiratory effort; no labored breathing Cardiovascular: Extremities: no edema Skin: warm and dry Neurologic: moves all extremities Results & Data ([facility]) Vital Signs (Past 12 Hours) Vital Signs Temp Pulse Resp BP Pulse Ox 11/07/20 07:28 97.9 F 67 18 158/80 H 97 PG Care Time/CCT Total # of Minutes Spent Total Time Spent with Patient: Total time spent is greater than 50% in coordination of care (as documented) at patient's floor/unit and/or counseling patient:total time spent 25min with more than 50% time spent on coordination of care and family support Coding Level of Care Code 24775 Subseq Hosp Care Lvl 2 Diagnoses Palliative care encounter Z51.5
--- NOTE | 2020-11-07 18:17 | Hospitalist Progress Note ---
Date of Service November 07, 2020 Assessment & Plan (1) Altered mental status: Dementia with aggressive behaviors and sundowning that has been getting worse over the past week per his son. Son reports it was like someone flipped a switch. Unable to perform CT head to rule out stroke 2/2 agitation. Cont supportive care and if he sundowns severely with aggressive behavior will consider olanzapine. Remains alert and awake today but noncommunicative He has not been eating and not drinking. Has been getting Zyprexa IM as needed for aggressiveness (2) Alzheimer's dementia: Reorient as necessary, placement into facility with help from Case Man agebasilio as a goal. Patient is currently on Hospice. Cont citalopram and Namenda per home regimen. He is now off donepezil. currently, not tolerating anything PO per nursing staff. (3) HTN (hypertension): at goal, cont holding lisinopril to minimize pill burden. Will restart if BP rises. (4) CKD (chronic kidney disease) stage 3, GFR 30-59 ml/min: at his baseline. Avoid nephrotoxic medications and renally dose medications as needed. (5) CAD (coronary artery disease): s/p CABG in past. Cont medical management with ASA 81mg per home regimen when able to swallow. (6) DVT prophylaxis: SCDs/Lovenox DNR/DNI-Hospice patient here for placement Dispo-pending ability to be placed into facility. Cleared from a medical standpoint to transfer to a facility any time. Admission and Anticipated Discharge Date Admission Date: November 04, 2020 Subjective The patient was seen and examined in medical floor He is demented, remains alert and awake with occasional aggressiveness Has not been drinking and/or eating Review of Systems Review of Systems: Unobtainable due to mental health condition Physical Exam Physical Exam: Lying in bed comfortably Constitutional: + ill appearing Eyes: PERRL, conjunctivae normal, anicteric sclerae ENMT: external ear and nose normal, oropharynx normal Neck: trachea midline, no thyromegaly Respiratory: no respiratory distress Auscultation: + diminished lung sounds Cardiovascular: Rate/Rhythm: regular rate and regular rhythm Heart Sounds: no murmur Extremities: no edema Gastrointestinal (Abdomen): Inspection/Auscultation: normal bowel sounds Percussion/Palpation: abdomen soft; abdomen nontender Musculoskeletal: No acute arthritis in any joint Neurologic: Noncommunicative, alert and awake. Generally weak and lethargic Psychiatric: Insight: + poor insight Lymphatic: no cervical or axillary lymphadenopathy Results & Data Results & Data ([facility]) Vital Signs (Past 12 Hours) Vital Signs Temp Pulse Pulse Resp BP Pulse Ox 11/07/20 15:17 66 16 145/76 H 95 11/07/20 07:28 36.6 C 67 18 158/80 H 97 Medications Administered Current Inpatient Medications Aspirin (Aspirin 81 Mg Ectab) 81 mg PO QAM [facility] Stop: 12/04/20 08:59 Last Admin: 11/07/20 10:19 Dose: Not Given Documented by: Citalopram Hydrobromide (Citalopram 20 Mg Tab) 20 mg PO QDL [facility] Stop: 12/04/20 11:29 Last Admin: 11/07/20 14:41 Dose: 20 mg Documented by: Promethazine HCl 12.5 mg/ (Sodium Chloride) 50.5 mls @ 202 mls/hr IV Q6H PRN PRN Reason: Nausea And Vomiting Stop: 12/06/20 22:54 Last Infusion: 11/06/20 23:30 Dose: Infused Documented by: Memantine (Memantine Hcl 5 Mg Tab) 5 mg PO BID [facility] Stop: 12/03/20 20:59 Last Admin: 11/07/20 10:19 Dose: Not Given Documented by: Olanzapine (Olanzapine 10 Mg/2.1 Ml Sdv) 2.5 mg IM Q8H PRN PRN Reason: severe agitation/delirium Stop: 12/03/20 18:44 Last Admin: 11/05/20 23:16 Dose: 2.5 mg Documented by: Pantoprazole Sodium (Pantoprazole 40 Mg Tab) 40 mg PO DAILY [facility] Stop: 12/04/20 08:59 Last Admin: 11/07/20 10:19 Dose: Not Given Documented by: (1) Altered mental status Altered mental status type: unspecified Qualified Code(s): R41.82 - Altered mental status, unspecified
[2020-11-08] MEDS: MEMANTINE HCL 5 MG TAB PO SCH ×2 (09:11→21:13)
[2020-11-08] MEDS: ASPIRIN 81 MG ECTAB PO SCH (09:11)
[2020-11-08] MEDS: CITALOPRAM 20 MG TAB PO SCH (09:11)
[2020-11-08] MEDS: PANTOprazole 40 MG TAB PO SCH (09:11)
[2020-11-08] MEDS: OLANZapine ZYDIS 5 MG ORALLY DIS. TAB PO PRN ×2 (12:27→21:13)
--- NOTE | 2020-11-08 14:52 | Palliative Care Progress Note ---
Date of Service November 08, 2020 Assessment & Plan Admission and Anticipated Discharge Date Admission Date: November 04, 2020 Subjective Sleeping but easily arousable. He has not needed zyprexa since 11/05. He was willing to take po meds today. He is talkative when aroused but appears comfortable and is not aggressive. Review of Systems Review of Systems: Unobtainable due to cognitive status [place] Symptom Assessment Scale PainAD 0/3 Dyspnea by RDOS 0/3 Palliative Performance Score 20% Physical Exam Constitutional: comfortable ENMT: Mouth: + dry oral mucous membranes Respiratory: normal respiratory effort; no labored breathing Skin: warm and dry Neurologic: moves all extremities Psychiatric: Orientation: + not oriented x 3 Results & Data ([facility]) Vital Signs (Past 12 Hours) Vital Signs Temp Pulse Resp BP Pulse Ox 11/08/20 07:15 97.7 F 67 16 119/76 100 PG Care Time/CCT Total # of Minutes Spent Total Time Spent with Patient: Total time spent is greater than 50% in coordination of care (as documented) at patient's floor/unit and/or counseling patient: 25 minutes Coding Level of Care Code 48612 Subseq Hosp Care Lvl 2
--- NOTE | 2020-11-08 15:15 | Hospitalist Progress Note ---
Date of Service November 08, 2020 Assessment & Plan (1) Altered mental status: Dementia with aggressive behaviors and sundowning that has been getting worse over the past week per his son. Son reports it was like someone flipped a switch. Unable to perform CT head to rule out stroke 2/2 agitation. Cont supportive care and if he sundowns severely with aggressive behavior will consider olanzapine. Remains alert and awake today but noncommunicative He has not been eating and not drinking. Has been getting Zyprexa IM as needed for aggressiveness No more aggressiveness and the Zyprexa has been changed to oral There is some increase in the oral intake Whenever he is accepted we can transfer him to the facility for continued care (2) Alzheimer's dementia: Reorient as necessary, placement into facility with help from Case Management as a goal. Patient is currently on Hospice. Cont citalopram and Namenda per home regimen. He is now off donepezil. currently, not tolerating anything PO per nursing staff. (3) HTN (hypertension): at goal, cont holding lisinopril to minimize pill burden. Will restart if BP rises. (4) CKD (chronic kidney disease) stage 3, GFR 30-59 ml/min: at his baseline. Avoid nephrotoxic medications and renally dose medications as needed. (5) CAD (coronary artery disease): s/p CABG in past. Cont medical management with ASA 81mg per home regimen when able to swallow. (6) DVT prophylaxis: SCDs/Lovenox DNR/DNI-Hospice patient here for placement Dispo-pending ability to be placed into facility. Cleared from a medical standpoint to transfer to a facility any time. Medically stable to be discharged Admission and Anticipated Discharge Date Admission Date: November 04, 2020 Subjective The patient was seen and examined in medical floor He is demented, remains alert and awake with occasional aggressiveness Has not been drinking and/or eating 11/08/2020 Plan patient was seen and examined in medical floor He remains alert and awake He tried to eat to some extent this morning Remains drowsy during examination Review of Systems Review of Systems: Unobtainable due to cognitive status Physical Exam Physical Exam: Lying in bed comfortably Constitutional: + ill appearing Eyes: PERRL, conjunctivae normal, anicteric sclerae ENMT: external ear and nose normal, oropharynx normal Neck: trachea midline, no thyromegaly Respiratory: no respiratory distress Auscultation: + diminished lung sounds Cardiovascular: Rate/Rhythm: regular rate and regular rhythm Heart Sounds: no murmur Extremities: no edema Gastrointestinal (Abdomen): Inspection/Auscultation: normal bowel sounds Percussion/Palpation: abdomen soft; abdomen nontender Musculoskeletal: No acute arthritis in any joint Neurologic: Alert and awake. Remains drowsy and not communicating Psychiatric: Insight: + poor insight Lymphatic: no cervical or axillary lymphadenopathy Results & Data Results & Data ([facility]) Vital Signs (Past 12 Hours) Vital Signs Temp Pulse Resp BP Pulse Ox 11/08/20 07:15 36.5 C 67 16 119/76 100 Medications Administered Current Inpatient Medications Aspirin (Aspirin 81 Mg Ectab) 81 mg PO QAM [facility] Stop: 12/04/20 08:59 Last Admin: 11/08/20 09:11 Dose: 81 mg Documented by: Citalopram Hydrobromide (Citalopram 20 Mg Tab) 20 mg PO QDL [facility] Stop: 12/04/20 11:29 Last Admin: 11/08/20 09:11 Dose: 20 mg Documented by: Promethazine HCl 12.5 mg/ (Sodium Chloride) 50.5 mls @ 202 mls/hr IV Q6H PRN PRN Reason: Nausea And Vomiting Stop: 12/06/20 22:54 Last Infusion: 11/06/20 23:30 Dose: Infused Documented by: Memantine (Memantine Hcl 5 Mg Tab) 5 mg PO BID [facility] Stop: 12/03/20 20:59 Last Admin: 11/08/20 09:11 Dose: 5 mg Documented by: Olanzapine (Olanzapine 10 Mg/2.1 Ml Sdv) 2.5 mg IM Q8H PRN PRN Reason: severe agitation/delirium Stop: 12/03/20 18:44 Last Admin: 11/05/20 23:16 Dose: 2.5 mg Documented by: Olanzapine (Olanzapine Zydis 5 Mg Orally Dis. Tab) 5 mg PO Q8H PRN PRN Reason: Agitation Stop: 12/08/20 09:59 Last Admin: 11/08/20 12:27 Dose: 5 mg Documented by: Pantoprazole Sodium (Pantoprazole 40 Mg Tab) 40 mg PO DAILY [facility] Stop: 12/04/20 08:59 Last Admin: 11/08/20 09:11 Dose: 40 mg Documented by: (1) Altered mental status Altered mental status type: unspecified Qualified Code(s): R41.82 - Altered mental status, unspecified
[2020-11-08] MEDS ORDERED: BACLOFEN 10 MG TAB PO PRN (17:43)
[2020-11-09] MEDS: MEMANTINE HCL 5 MG TAB PO SCH ×2 (09:01→20:42)
[2020-11-09] MEDS: CITALOPRAM 20 MG TAB PO SCH (09:01)
[2020-11-09] MEDS: ASPIRIN 81 MG ECTAB PO SCH (09:07)
[2020-11-09] MEDS: PANTOprazole 40 MG TAB PO SCH (09:07)
--- NOTE | 2020-11-09 15:05 | Palliative Care Progress Note ---
Date of Service November 09, 2020 Assessment & Plan (1) Dementia: Had agitated behavior on admission. He has responded to prn zyprexa and has not had dose since last evening. Plan for discharge to SNF when available. (2) Palliative care encounter: Initiated zoom visit for Donn with his son who has not been able to visit him. He did say hello but generally is not following zoom visit. Son was very appreciative. Admission and Anticipated Discharge Date Admission Date: November 04, 2020 Subjective Awake, very talkative but no coherent sentences. Not picking at sheets or undressing. Dozes off when not stimulated. Review of Systems Review of Systems: Unobtainable due to cognitive status [place] Symptom Assessment Scale Pain AD 0/3 Palliative Performance score 30% Physical Exam Constitutional: no acute distress Respiratory: normal respiratory effort; no labored breathing Cardiovascular: Extremities: no edema Gastrointestinal (Abdomen): Inspection/Auscultation: abdomen not distended Musculoskeletal: Extremities: extremities normal to inspection Skin: no rashes, warm and dry Psychiatric: Orientation: + not oriented x 3 Results & Data ([facility]) Vital Signs (Past 12 Hours) Vital Signs Temp Pulse Resp BP Pulse Ox 11/09/20 07:35 97.5 F L 67 16 122/80 97 PG Care Time/CCT Total # of Minutes Spent Total Time Spent with Patient: Total time spent is greater than 50% in coordination of care (as documented) at patient's floor/unit and/or counseling patient: Total time spent 35 min with more than 50% of time spent on coordination of care, family education, symptom management. Coding Level of Care Code 51606 Subseq Hosp Care Lvl 3 Diagnoses Dementia G30.9; F02.81 Alzheimer's disease onset: unspecified onset Dementia behavioral disturbance: with behavioral disturbance Dementia type: Alzheimer's Palliative care encounter Z51.5 (1) Dementia Alzheimer's disease onset: unspecified onset Dementia behavioral disturbance: with behavioral disturbance Dementia type: Alzheimer's Qualified Code(s): G30.9 - Alzheimer's disease, unspecified; F02.81 - Dementia in other diseases classified elsewhere with behavioral disturbance
--- NOTE | 2020-11-09 15:46 | Hospitalist Progress Note ---
Date of Service November 09, 2020 Assessment & Plan (1) Altered mental status: Dementia with aggressive behaviors and sundowning that has been getting worse over the past week per his son. Son reports it was like someone flipped a switch. Unable to perform CT head to rule out stroke 2/2 agitation. Cont supportive care and if he sundowns severely with aggressive behavior will consider olanzapine. Remains alert and awake today but noncommunicative He has not been eating and not drinking. Has been getting Zyprexa IM as needed for aggressiveness No more aggressiveness and the Zyprexa has been changed to oral Has remained stable and seems to be more alert and awake today Continue to push oral food and fluids There is some increase in the oral intake Whenever he is accepted we can transfer him to the facility for continued care (2) Alzheimer's dementia: Reorient as necessary, placement into facility with help from Case Management as a goal. Patient is currently on Hospice. Cont citalopram and Namenda per home regimen. He is now off donepezil. currently, not tolerating anything PO per nursing staff. (3) HTN (hypertension): at goal, cont holding lisinopril to minimize pill burden. Will restart if BP rises. (4) CKD (chronic kidney disease) stage 3, GFR 30-59 ml/min: at his baseline. Avoid nephrotoxic medications and renally dose medications as needed. (5) CAD (coronary artery disease): s/p CABG in past. Cont medical management with ASA 81mg per home regimen when able to swallow. (6) DVT prophylaxis: SCDs/Lovenox DNR/DNI-Hospice patient here for placement Dispo-pending ability to be placed into facility. Cleared from a medical standpoint to transfer to a facility any time. Medically stable to be discharged Discussed with the son Admission and Anticipated Discharge Date Admission Date: November 04, 2020 Subjective The patient was seen and examined in medical floor He is demented, remains alert and awake with occasional aggressiveness Has not been drinking and/or eating 11/08/2020 Plan patient was seen and examined in medical floor He remains alert and awake He tried to eat to some extent this morning Remains drowsy during examination 11/09/2020 The patient was seen and examined in medical floor He remains stable and has been morning today Was noted to be aggressive this morning Denies any significant pain Review of Systems Review of Systems: Unobtainable due to cognitive status Physical Exam Physical Exam: Lying in bed comfortably Constitutional: + ill appearing Eyes: PERRL, conjunctivae normal, anicteric sclerae ENMT: external ear and nose normal, oropharynx normal Neck: trachea midline, no thyromegaly Respiratory: no respiratory distress Auscultation: + diminished lung sounds Cardiovascular: Rate/Rhythm: regular rate and regular rhythm Heart Sounds: no murmur Extremities: no edema Gastrointestinal (Abdomen): Inspection/Auscultation: normal bowel sounds Percussion/Palpation: abdomen soft; abdomen nontender Musculoskeletal: No acute arthritis in any joint Psychiatric: Insight: + poor insight Lymphatic: no cervical or axillary lymphadenopathy Results & Data Results & Data ([facility]) Vital Signs (Past 12 Hours) Vital Signs Temp Pulse Resp BP Pulse Ox 11/09/20 07:35 36.4 C L 67 16 122/80 97 Medications Administered Current Inpatient Medications Aspirin (Aspirin 81 Mg Ectab) 81 mg PO QAM [facility] Stop: 12/04/20 08:59 Last Admin: 11/09/20 09:07 Dose: Not Given Documented by: Baclofen (Baclofen 10 Mg Tab) 10 mg PO BID PRN PRN Reason: GI Upset Stop: 12/08/20 20:59 Citalopram Hydrobromide (Citalopram 20 Mg Tab) 20 mg PO QDL [facility] Stop: 12/04/20 11:29 Last Admin: 11/09/20 09:01 Dose: 20 mg Documented by: Promethazine HCl 12.5 mg/ (Sodium Chloride) 50.5 mls @ 202 mls/hr IV Q6H PRN PRN Reason: Nausea And Vomiting Stop: 12/06/20 22:54 Last Infusion: 11/06/20 23:30 Dose: Infused Documented by: Memantine (Memantine Hcl 5 Mg Tab) 5 mg PO BID [facility] Stop: 12/03/20 20:59 Last Admin: 11/09/20 09:01 Dose: 5 mg Documented by: Olanzapine (Olanzapine 10 Mg/2.1 Ml Sdv) 2.5 mg IM Q8H PRN PRN Reason: severe agitation/delirium Stop: 12/03/20 18:44 Last Admin: 11/05/20 23:16 Dose: 2.5 mg Documented by: Olanzapine (Olanzapine Zydis 5 Mg Orally Dis. Tab) 5 mg PO Q8H PRN PRN Reason: Agitation Stop: 12/08/20 09:59 Last Admin: 11/08/20 21:13 Dose: 5 mg Documented by: Pantoprazole Sodium (Pantoprazole 40 Mg Tab) 40 mg PO DAILY [facility] Stop: 12/04/20 08:59 Last Admin: 11/09/20 09:07 Dose: Not Given Documented by: (1) Altered mental status Altered mental status type: unspecified Qualified Code(s): R41.82 - Altered mental status, unspecified
[2020-11-09] MEDS: OLANZapine ZYDIS 5 MG ORALLY DIS. TAB PO PRN (21:06)
[2020-11-10 08:36] LABS: Basophils # (auto) 0.03 K/uL (0-0.2); Basophils % (auto) 0.2 %; Eosinophils # (auto) 0.21 K/uL (0-0.5); Eosinophils % (auto) 1.7 %; Hematocrit (blood only) 40.5 % (42-52); Hemoglobin 12.6 g/dL (14.0-18.0); Immature Granulocytes # (auto) 0.04 K/uL (0.00-0.02); Immature Granulocytes % (auto) 0.3 %; Lymphocytes # (auto) 2.36 K/uL (1.2-3.4); Lymphocytes % (auto) 19.5 %; Mean Corpuscular Hemoglobin 30.1 pg (25-34); Mean Corpuscular Hgb Conc 31.1 g/dL (32-36); Mean Corpuscular Volume 96.9 fL (80-100); Mean Platelet Volume 11.2 fL (7.4-10.4); Monocytes # (auto) 1.37 K/uL (0.11-0.59); Monocytes % (auto) 11.3 %; Neutrophils # (auto) 8.09 K/uL (1.4-6.5); Platelet Count 300 K/uL (130-400); RDW Coefficient of Variation 15.1 % (11.5-14.5); RDW Standard Deviation 53.1 fL (36.4-46.3); Red Blood Count 4.18 M/uL (4.7-6.1)
[2020-11-10] MEDS: MEMANTINE HCL 5 MG TAB PO SCH ×2 (08:46→20:10)
[2020-11-10] MEDS: ASPIRIN 81 MG ECTAB PO SCH (08:46)
[2020-11-10] MEDS: PANTOprazole 40 MG TAB PO SCH (08:46)
[2020-11-10] MEDS: CITALOPRAM 20 MG TAB PO SCH (08:47)
[2020-11-10 09:09] LABS: BUN Creatinine Ratio 24.6 (10-20); Blood Urea Nitrogen 34 mg/dl (7-18); Calcium 9.6 mg/dl (8.5-10.1); Carbon Dioxide 23 mmol/L (21-32); Chloride 114 mmol/L (98-107); Est GFR (African American) 53.6; Est GFR (Non-African American) 46.3; Glucose 91 mg/dl (70-99); Magnesium 2.4 mg/dl (1.8-2.4); Phosphorus 2.9 mg/dl (2.5-4.9); Potassium 3.7 mmol/L (3.5-5.1); Sodium 146 mmol/L (136-145)
--- NOTE | 2020-11-10 13:54 | Hospitalist Progress Note ---
Date of Service November 10, 2020 Assessment & Plan (1) Altered mental status: Dementia with aggressive behaviors and sundowning that has been getting worse over the past week per his son. Son reports it was like someone flipped a switch. Unable to perform CT head to rule out stroke 2/2 agitation. Cont supportive care and if he sundowns severely with aggressive behavior will consider olanzapine. Remains alert and awake today but noncommunicative He has not been eating and not drinking. Has been getting Zyprexa IM as needed for aggressiveness No more aggressiveness and the Zyprexa has been changed to oral Has remained stable and seems to be more alert and awake today Continue to push oral food and fluids-taking only a few bites Remains otherwise stable There is some increase in the oral intake Whenever he is accepted we can transfer him to the facility for continued care (2) Alzheimer's dementia: Reorient as necessary, placement into facility with help from Case Management as a goal. Patient is currently on Hospice. Cont citalopram and Namenda per home regimen. He is now off donepezil. currently, not tolerating anything PO per nursing staff. Seems to be back to his baseline (3) HTN (hypertension): at goal, cont holding lisinopril to minimize pill burden. Will restart if BP rises. (4) CKD (chronic kidney disease) stage 3, GFR 30-59 ml/min: at his baseline. Avoid nephrotoxic medications and renally dose medications as needed. (5) CAD (coronary artery disease): s/p CABG in past. Cont medical management with ASA 81mg per home regimen when able to swallow. (6) DVT prophylaxis: SCDs/Lovenox DNR/DNI-Hospice patient here for placement Dispo-pending ability to be placed into facility. Cleared from a medical standpoint to transfer to a facility any time. Medically stable to be discharged Discussed with the son Admission and Anticipated Discharge Date Admission Date: November 04, 2020 Subjective The patient was seen and examined in medical floor He is demented, remains alert and awake with occasional aggressiveness Has not been drinking and/or eating 11/08/2020 Plan patient was seen and examined in medical floor He remains alert and awake He tried to eat to some extent this morning Remains drowsy during examination 11/09/2020 The patient was seen and examined in medical floor He remains stable and has been morning today Was noted to be aggressive this morning Denies any significant pain 11/10/2020 The patient was seen and examined in medical floor He remains stable and has pain in mumbling Not been eating or drinking enough Does not have any agitation Review of Systems Review of Systems: Unobtainable due to cognitive status Physical Exam Physical Exam: Lying in bed comfortably Constitutional: + ill appearing Eyes: PERRL, conjunctivae normal, anicteric sclerae ENMT: external ear and nose normal, oropharynx normal Neck: trachea midline, no thyromegaly Respiratory: no respiratory distress Auscultation: + diminished lung sounds Cardiovascular: Rate/Rhythm: regular rate and regular rhythm Heart Sounds: no murmur Extremities: no edema Gastrointestinal (Abdomen): Inspection/Auscultation: normal bowel sounds Percussion/Palpation: abdomen soft; abdomen nontender Musculoskeletal: No acute arthritis in any joint Neurologic: Alert and awake. Making nonspecific sounds. Generally weak Psychiatric: Insight: + poor insight Lymphatic: no cervical or axillary lymphadenopathy Results & Data Results & Data ([facility]) Vital Signs (Past 12 Hours) Vital Signs Temp Pulse Resp BP Pulse Ox 11/10/20 08:40 36.4 C L 71 20 138/67 95 Laboratory Results Short CBC 11/10/20 Range/Units 08:03 WBC 12.10 H (4.8-10.8) K/uL Hgb 12.6 L (14.0-18.0) g/dL Hct 40.5 L (42-52) % Plt Count 300 (130-400) K/uL BMP 11/10/20 08:03 Sodium 146 H Potassium 3.7 Chloride 114 H Carbon Dioxide 23 BUN 34 H Creatinine 1.38 Glucose 91 Calcium 9.6 Medications Administered Current Inpatient Medications Aspirin (Aspirin 81 Mg Ectab) 81 mg PO QAM [facility] Stop: 12/04/20 08:59 Last Admin: 11/10/20 08:46 Dose: Not Given Documented by: Baclofen (Baclofen 10 Mg Tab) 10 mg PO BID PRN PRN Reason: GI Upset Stop: 12/08/20 20:59 Citalopram Hydrobromide (Citalopram 20 Mg Tab) 20 mg PO QDL [facility] Stop: 12/04/20 11:29 Last Admin: 11/10/20 08:47 Dose: Not Given Documented by: Promethazine HCl 12.5 mg/ (Sodium Chloride) 50.5 mls @ 202 mls/hr IV Q6H PRN PRN Reason: Nausea And Vomiting Stop: 12/06/20 22:54 Last Infusion: 11/06/20 23:30 Dose: Infused Documented by: Memantine (Memantine Hcl 5 Mg Tab) 5 mg PO BID [facility] Stop: 12/03/20 20:59 Last Admin: 11/10/20 08:46 Dose: Not Given Documented by: Olanzapine (Olanzapine 10 Mg/2.1 Ml Sdv) 2.5 mg IM Q8H PRN PRN Reason: severe agitation/delirium Stop: 12/03/20 18:44 Last Admin: 11/05/20 23:16 Dose: 2.5 mg Documented by: Olanzapine (Olanzapine Zydis 5 Mg Orally Dis. Tab) 5 mg PO Q8H PRN PRN Reason: Agitation Stop: 12/08/20 09:59 Last Admin: 11/09/20 21:06 Dose: 5 mg Documented by: Pantoprazole Sodium (Pantoprazole 40 Mg Tab) 40 mg PO DAILY [facility] Stop: 12/04/20 08:59 Last Admin: 11/10/20 08:46 Dose: Not Given Documented by: (1) Altered mental status Altered mental status type: unspecified Qualified Code(s): R41.82 - Altered mental status, unspecified
[2020-11-11] MEDS: ASPIRIN 81 MG ECTAB PO SCH (08:56)
[2020-11-11] MEDS: MEMANTINE HCL 5 MG TAB PO SCH ×2 (08:56→20:00)
[2020-11-11] MEDS: PANTOprazole 40 MG TAB PO SCH (08:56)
[2020-11-11] MEDS: CITALOPRAM 20 MG TAB PO SCH (13:28)
--- NOTE | 2020-11-11 14:04 | Hospitalist Progress Note ---
Date of Service November 11, 2020 Assessment & Plan (1) Altered mental status: Dementia with aggressive behaviors and sundowning that has been getting worse over the past week per his son. Son reports it was like someone flipped a switch. Unable to perform CT head to rule out stroke 2/2 agitation. Cont supportive care and if he sundowns severely with aggressive behavior will consider olanzapine. Remains alert and awake today but noncommunicative He has not been eating and not drinking. Has been getting Zyprexa IM as needed for aggressiveness No more aggressiveness and the Zyprexa has been changed to oral Has remained stable and seems to be more alert and awake today Continue to push oral food and fluids-taking only a few bites Remains otherwise stable-but not been eating and/or drinking Has been spitting out foods when trying to feed There is some increase in the oral intake Whenever he is accepted we can transfer him to the facility for continued care We will discuss with the son about further management action from here (2) Alzheimer's dementia: Reorient as necessary, placement into facility with help from Case Management as a goal. Patient is currently on Hospice. Cont citalopram and Namenda per home regimen. He is now off donepezil. currently, not tolerating anything PO per nursing staff. Seems to be back to his baseline (3) HTN (hypertension): at goal, cont holding lisinopril to minimize pill burden. Will restart if BP rises. (4) CKD (chronic kidney disease) stage 3, GFR 30-59 ml/min: at his baseline. Avoid nephrotoxic medications and renally dose medications as needed. (5) CAD (coronary artery disease): s/p CABG in past. Cont medical management with ASA 81mg per home regimen when able to swallow. (6) DVT prophylaxis: SCDs/Lovenox DNR/DNI-Hospice patient here for placement Dispo-pending ability to be placed into facility. Cleared from a medical standpoint to transfer to a facility any time. Medically stable to be discharged Discussed with the son on 11/10/20 Admission and Anticipated Discharge Date Admission Date: November 04, 2020 Subjective The patient was seen and examined in medical floor He is demented, remains alert and awake with occasional aggressiveness Has not been drinking and/or eating 11/08/2020 Plan patient was seen and examined in medical floor He remains alert and awake He tried to eat to some extent this morning Remains drowsy during examination 11/09/2020 The patient was seen and examined in medical floor He remains stable and has been morning today Was noted to be aggressive this morning Denies any significant pain 11/10/2020 The patient was seen and examined in medical floor He remains stable and has pain in mumbling Not been eating or drinking enough Does not have any agitation 11/11/2020 The patient was seen and examined in medical floor He remains stable but has not been eating or drinking Not been aggressive but spitting out food when tried to fed Review of Systems Review of Systems: Unobtainable due to cognitive status Physical Exam Physical Exam: Lying in bed comfortably Constitutional: + ill appearing Eyes: PERRL, conjunctivae normal, anicteric sclerae ENMT: external ear and nose normal, oropharynx normal Neck: trachea midline, no thyromegaly Respiratory: no respiratory distress Auscultation: + diminished lung sounds Cardiovascular: Rate/Rhythm: regular rate and regular rhythm Heart Sounds: no murmur Extremities: no edema Gastrointestinal (Abdomen): Inspection/Auscultation: normal bowel sounds Percussion/Palpation: abdomen soft; abdomen nontender Musculoskeletal: Does not have any acutely inflamed joint Psychiatric: Insight: + poor insight Lymphatic: no cervical or axillary lymphadenopathy Results & Data Results & Data ([facility]) Vital Signs (Past 12 Hours) Vital Signs Temp Pulse Resp BP Pulse Ox 11/11/20 07:21 36.5 C 77 20 136/84 96 (1) Altered mental status Altered mental status type: unspecified Qualified Code(s): R41.82 - Altered mental status, unspecified
[2020-11-12 06:07] LABS: Basophils # (auto) 0.03 K/uL (0-0.2); Basophils % (auto) 0.2 %; Eosinophils # (auto) 0.05 K/uL (0-0.5); Eosinophils % (auto) 0.4 %; Immature Granulocytes # (auto) 0.03 K/uL (0.00-0.02); Immature Granulocytes % (auto) 0.2 %; Lymphocytes % (auto) 15.6 %; Mean Corpuscular Hemoglobin 30.7 pg (25-34); Mean Corpuscular Hgb Conc 31.7 g/dL (32-36); Mean Corpuscular Volume 96.9 fL (80-100); Mean Platelet Volume 11.7 fL (7.4-10.4); Monocytes # (auto) 1.72 K/uL (0.11-0.59); Monocytes % (auto) 12.2 %; Neutrophils % (auto) 71.4 %; Platelet Count 356 K/uL (130-400); RDW Coefficient of Variation 15.4 % (11.5-14.5); RDW Standard Deviation 54.7 fL (36.4-46.3); Red Blood Count 4.23 M/uL (4.7-6.1); White Blood Count 14.13 K/uL (4.8-10.8)
[2020-11-12 06:46] LABS: BUN Creatinine Ratio 31.5 (10-20); Blood Urea Nitrogen 49 mg/dl (7-18); Calcium 9.7 mg/dl (8.5-10.1); Carbon Dioxide 20 mmol/L (21-32); Chloride 120 mmol/L (98-107); Est GFR (African American) 45.9; Est GFR (Non-African American) 39.6; Glucose 112 mg/dl (70-99); Magnesium 2.8 mg/dl (1.8-2.4); Phosphorus 3.4 mg/dl (2.5-4.9); Potassium 3.9 mmol/L (3.5-5.1); Sodium 150 mmol/L (136-145)
[2020-11-12] MEDS: ASPIRIN 81 MG ECTAB PO SCH (07:46)
[2020-11-12] MEDS: MEMANTINE HCL 5 MG TAB PO SCH ×2 (07:46→21:13)
[2020-11-12] MEDS: PANTOprazole 40 MG TAB PO SCH (07:47)
[2020-11-12] MEDS: CITALOPRAM 20 MG TAB PO SCH (07:47)
[2020-11-12] MEDS: D5W AND 1/2NSS 1,000 ML IV SCH ×2 (08:47→16:08)
--- NOTE | 2020-11-12 10:38 | Hospitalist Progress Note ---
Date of Service November 12, 2020 Assessment & Plan (1) Altered mental status: Dementia with aggressive behaviors and sundowning that has been getting worse over the past week per his son. Son reports it was like someone flipped a switch. Unable to perform CT head to rule out stroke 2/2 agitation. Cont supportive care and if he sundowns severely with aggressive behavior will consider olanzapine. Remains alert and awake today but noncommunicative He has not been eating and not drinking. Has been getting Zyprexa IM as needed for aggressiveness No more aggressiveness and the Zyprexa has been changed to oral Has remained stable and seems to be more alert and awake today Continue to push oral food and fluids-taking only a few bites Remains otherwise stable-but not been eating and/or drinking Took very minimal food this morning There is some increase in the oral intake Whenever he is accepted we can transfer him to the facility for continued care We will discuss with the son about further management action from here Hyponatremia Likely secondary to dehydration We will try small amount of intravenous half-normal saline with dextrose He has been waiting to be transferred (2) Alzheimer's dementia: Reorient as necessary, placement into facility with help from Case Management as a goal. Patient is currently on Hospice. Cont citalopram and Namenda per home regimen. He is now off donepezil. currently, not tolerating anything PO per nursing staff. Seems to be back to his baseline (3) HTN (hypertension): at goal, cont holding lisinopril to minimize pill burden. Will restart if BP rises. (4) CKD (chronic kidney disease) stage 3, GFR 30-59 ml/min: at his baseline. Avoid nephrotoxic medications and renally dose medications as needed. Has GAVIN secondary to dehydration We will give intravenous fluid and monitor. (5) CAD (coronary artery disease): s/p CABG in past. Cont medical management with ASA 81mg per home regimen when able to swallow. (6) DVT prophylaxis: SCDs/Lovenox DNR/DNI-Hospice patient here for placement Dispo-pending ability to be placed into facility. Cleared from a medical standpoint to transfer to a facility any time. Medically stable to be discharged Discussed with the son on 11/11/20 Admission and Anticipated Discharge Date Admission Date: November 04, 2020 Subjective The patient was seen and examined in medical floor He is demented, remains alert and awake with occasional aggressiveness Has not been drinking and/or eating 11/08/2020 Plan patient was seen and examined in medical floor He remains alert and awake He tried to eat to some extent this morning Remains drowsy during examination 11/09/2020 The patient was seen and examined in medical floor He remains stable and has been morning today Was noted to be aggressive this morning Denies any significant pain 11/10/2020 The patient was seen and examined in medical floor He remains stable and has pain in mumbling Not been eating or drinking enough Does not have any agitation 11/11/2020 The patient was seen and examined in medical floor He remains stable but has not been eating or drinking Not been aggressive but spitting out food when tried to fed 11/12/2020 The patient was seen and examined in the medical floor He remains stable and moans occasionally Still he has not been eating and drinking enough Review of Systems Review of Systems: Unobtainable due to cognitive status Musculoskeletal: No acute arthritis in any joint Physical Exam Physical Exam: Sitting on a chair without any acute distress Constitutional: + ill appearing Eyes: PERRL, conjunctivae normal, anicteric sclerae ENMT: external ear and nose normal, oropharynx normal Neck: trachea midline, no thyromegaly Respiratory: no respiratory distress Auscultation: + diminished lung sounds Cardiovascular: Rate/Rhythm: regular rate and regular rhythm Heart Sounds: no murmur Extremities: no edema Gastrointestinal (Abdomen): Inspection/Auscultation: normal bowel sounds Percussion/Palpation: abdomen soft; abdomen nontender Musculoskeletal: No acute arthritis Neurologic: Alert, awake and oriented x3. He is generally weak and lethargic but no focal neuro deficit Psychiatric: Insight: + poor insight Lymphatic: no cervical or axillary lymphadenopathy Results & Data Results & Data ([facility]) Vital Signs (Past 12 Hours) Vital Signs Temp Pulse Pulse Resp BP Pulse Ox 11/12/20 09:12 36.3 C L 83 20 128/63 98 11/11/20 23:32 36.2 C L 83 16 136/84 97 Laboratory Results Short CBC 11/12/20 Range/Units 05:24 WBC 14.13 H (4.8-10.8) K/uL Hgb 13.0 L (14.0-18.0) g/dL Hct 41.0 L (42-52) % Plt Count 356 (130-400) K/uL BMP 11/12/20 05:24 Sodium 150 H Potassium 3.9 Chloride 120 H Carbon Dioxide 20 L BUN 49 H Creatinine 1.57 H Glucose 112 H Calcium 9.7 Medications Administered Current Inpatient Medications Aspirin (Aspirin 81 Mg Ectab) 81 mg PO QAM [facility] Stop: 12/04/20 08:59 Last Admin: 11/12/20 07:46 Dose: Not Given Documented by: Baclofen (Baclofen 10 Mg Tab) 10 mg PO BID PRN PRN Reason: GI Upset Stop: 12/08/20 20:59 Citalopram Hydrobromide (Citalopram 20 Mg Tab) 20 mg PO QDL [facility] Stop: 12/04/20 11:29 Last Admin: 11/12/20 07:47 Dose: Not Given Documented by: Promethazine HCl 12.5 mg/ (Sodium Chloride) 50.5 mls @ 202 mls/hr IV Q6H PRN PRN Reason: Nausea And Vomiting Stop: 12/06/20 22:54 Last Infusion: 11/06/20 23:30 Dose: Infused Documented by: Dextrose/Sodium Chloride (D5w And 1/2nss) 1,000 mls @ 125 mls/hr IV .Q8H [facility] Stop: 11/13/20 00:29 Last Admin: 11/12/20 08:47 Dose: 125 mls/hr Documented by: Memantine (Memantine Hcl 5 Mg Tab) 5 mg PO BID [facility] Stop: 12/03/20 20:59 Last Admin: 11/12/20 07:46 Dose: Not Given Documented by: Olanzapine (Olanzapine 10 Mg/2.1 Ml Sdv) 2.5 mg IM Q8H PRN PRN Reason: severe agitation/delirium Stop: 12/03/20 18:44 Last Admin: 11/05/20 23:16 Dose: 2.5 mg Documented by: Olanzapine (Olanzapine Zydis 5 Mg Orally Dis. Tab) 5 mg PO Q8H PRN PRN Reason: Agitation Stop: 12/08/20 09:59 Last Admin: 11/09/20 21:06 Dose: 5 mg Documented by: Pantoprazole Sodium (Pantoprazole 40 Mg Tab) 40 mg PO DAILY [facility] Stop: 12/04/20 08:59 Last Admin: 11/12/20 07:47 Dose: Not Given Documented by: (1) Altered mental status Altered mental status type: unspecified Qualified Code(s): R41.82 - Altered mental status, unspecified
[2020-11-13 05:50] LABS: BUN Creatinine Ratio 25.9 (10-20); Blood Urea Nitrogen 37 mg/dl (7-18); Calcium 8.9 mg/dl (8.5-10.1); Carbon Dioxide 26 mmol/L (21-32); Chloride 121 mmol/L (98-107); Est GFR (African American) 51.8; Est GFR (Non-African American) 44.7; Glucose 106 mg/dl (70-99); Potassium 3.6 mmol/L (3.5-5.1); Sodium 151 mmol/L (136-145)
[2020-11-13] MEDS: PANTOprazole 40 MG TAB PO SCH (08:25)
[2020-11-13] MEDS: MEMANTINE HCL 5 MG TAB PO SCH (08:25)
[2020-11-13] MEDS: ASPIRIN 81 MG ECTAB PO SCH (08:25)
[2020-11-13] MEDS ORDERED: DEXTROSE 5% 1,000 ML IV SCH (09:15)
--- NOTE | 2020-11-13 09:43 | Palliative Care Progress Note ---
Date of Service November 13, 2020 Assessment & Plan (1) Anorexia: Needs cueing and careful feeding. His son reports that he likes sweets and likes to eat waffles and peanut butter toast. We discussed that this is related to advanced dementia and will likely continue. Donn has a living w ill which specifies no feeding tubes. (2) Palliative care encounter: He has had progressive functional decline with anorexia in advanced dementia. He is awaiting placement at SNF as his son is not able to safely care for him at home. We did discuss hospice at home with his functional decline but his son remains concerned for his safety at home. We reviewed Donn's living will and health care goals. Goal is comfort directed care with antibiotics or short term fluids for comfort purposes. POLST form completed to reflect this and placed on chart. Palliative care will follow peripherally. (3) Dementia: Admission and Anticipated Discharge Date Admission Date: November 04, 2020 Subjective More awake today. Talking but not intelligible speech. Oral intake has been poor. He is refusing medications. He did take a couple bites of sherbet for me but needs cueing to swallow. Review of Systems Review of Systems: Unobtainable due to cognitive status [place] Symptom Assessment Scale PainAD 0/3 Dyspnea by RDOS 0/3 Palliative Performance Score 30% Physical Exam Constitutional: no acute distress ENMT: Mouth: + dry oral mucous membranes temporal wasting Respiratory: normal respiratory effort; no labored breathing Cardiovascular: Extremities: no edema Gastrointestinal (Abdomen): Inspection/Auscultation: abdomen not distended Percussion/Palpation: abdomen soft; abdomen nontender Musculoskeletal: Extremities: + muscle atrophy Skin: warm and dry Neurologic: moves all extremities and + confused Results & Data ([facility]) Vital Signs (Past 12 Hours) Vital Signs Temp Pulse Pulse Resp BP BP Pulse Ox 11/13/20 07:08 97.9 F 71 16 134/59 L 98 11/13/20 00:01 97.9 F 71 17 129/73 98 PG Care Time/CCT Total # of Minutes Spent Total Time Spent with Patient: Total time spent is greater than 50% in coordination of care (as documented) at patient's floor/unit and/or counseling patient: Total time spent is 40 minutes with more than 50% of time spent on goals of care, POLST form completion Coding Level of Care Code 64521 Subseq Hosp Care Lvl 3 Diagnoses Anorexia R63.0 Palliative care encounter Z51.5 Dementia G30.9; F02.81 Alzheimer's disease onset: unspecified onset Dementia behavioral disturbance: with behavioral disturbance Dementia type: Alzheimer's (1) Dementia Alzheimer's disease onset: unspecified onset Dementia behavioral disturbance: with behavioral disturbance Dementia type: Alzheimer's Qualified Code(s): G30.9 - Alzheimer's disease, unspecified; F02.81 - Dementia in other diseases classified elsewhere with behavioral disturbance
[2020-11-13] MEDS: CITALOPRAM 20 MG TAB PO SCH (11:51)
--- NOTE | 2020-11-13 12:03 | Hospitalist Progress Note ---
Date of Service November 13, 2020 Assessment & Plan (1) Altered mental status: Dementia with aggressive behaviors and sundowning that has been getting worse over the past week per his son. Son reports it was like someone flipped a switch. Unable to perform CT head to rule out stroke 2/2 agitation. Cont supportive care and if he sundowns severely with aggressive behavior will consider olanzapine. Remains alert and awake today but noncommunicative He has not been eating and not drinking. Has been getting Zyprexa IM as needed for aggressiveness No more aggressiveness and the Zyprexa has been changed to oral Has remained stable and seems to be more alert and awake today Continue to push oral food and fluids-taking only a few bites Remains otherwise stable-but not been eating and/or drinking-we will need to push food and fluid with recurrent trials There is some increase in the oral intake Whenever he is accepted we can transfer him to the facility for continued care His son reports that he likes sweets and likes to eat waffles and peanut butter toast. Hypernatremia Likely secondary to dehydration We will try small amount of intravenous half-normal saline with dextrose He has been waiting to be transferred Has been getting some intravenous fluid The patient was willing to drink more during my conversation with him this morning (2) Alzheimer's dementia: Reorient as necessary, placement into facility with help from Case Rosalino hayes as a goal. Patient is currently on Hospice. Cont citalopram and Namenda per home regimen. He is now off donepezil. currently, not tolerating anything PO per nursing staff. Seems to be back to his baseline (3) HTN (hypertension): at goal, cont holding lisinopril to minimize pill burden. Will restart if BP rises. (4) CKD (chronic kidney disease) stage 3, GFR 30-59 ml/min: at his baseline. Avoid nephrotoxic medications and renally dose medications as needed. Has GAVIN secondary to dehydration We will give intravenous fluid and monitor. Advised to drink more water (5) CAD (coronary artery disease): s/p CABG in past. Cont medical management with ASA 81mg per home regimen when able to swallow. (6) DVT prophylaxis: SCDs/Lovenox DNR/DNI-Hospice patient here for placement Dispo-pending ability to be placed into facility. Cleared from a medical standpoint to transfer to a facility any time. Medically stable to be discharged Discussed with the son on 11/11/20 and again today that is 11/13/2020 Admission and Anticipated Discharge Date Admission Date: November 04, 2020 Subjective The patient was seen and examined in medical floor He is demented, remains alert and awake with occasional aggressiveness Has not been drinking and/or eating 11/08/2020 Plan patient was seen and examined in medical floor He remains alert and awake He tried to eat to some extent this morning Remains drowsy during examination 11/09/2020 The patient was seen and examined in medical floor He remains stable and has been morning today Was noted to be aggressive this morning Denies any significant pain 11/10/2020 The patient was seen and examined in medical floor He remains stable and has pain in mumbling Not been eating or drinking enough Does not have any agitation 11/11/2020 The patient was seen and examined in medical floor He remains stable but has not been eating or drinking Not been aggressive but spitting out food when tried to fed 11/12/2020 The patient was seen and examined in the medical floor He remains stable and moans occasionally Still he has not been eating and drinking enough 11/13/2020 The patient was seen and examined in medical floor He has not been eating and drinking enough with repeated try He remains stable and moans occasionally but not in any acute distress Review of Systems Review of Systems: Unobtainable due to cognitive status Physical Exam Physical Exam: Lying in bed without any acute distress Constitutional: + ill appearing Eyes: PERRL, conjunctivae normal, anicteric sclerae ENMT: external ear and nose normal, oropharynx normal Neck: trachea midline, no thyromegaly Respiratory: no respiratory distress Auscultation: + diminished lung sounds Cardiovascular: Rate/Rhythm: regular rate and regular rhythm Heart Sounds: no murmur Extremities: no edema Gastrointestinal (Abdomen): Inspection/Auscultation: normal bowel sounds Percussion/Palpation: abdomen soft; abdomen nontender Musculoskeletal: No acute arthritis in any joint Neurologic: Alert and awake. Noncommunicative. Moans occasionally Psychiatric: Insight: + poor insight Lymphatic: no cervical or axillary lymphadenopathy Results & Data Results & Data ([facility]) Vital Signs (Past 12 Hours) Vital Signs Temp Pulse Pulse Resp BP BP Pulse Ox 11/13/20 07:08 36.6 C 71 16 134/59 L 98 11/13/20 00:01 36.6 C 71 17 129/73 98 Laboratory Results BMP 11/13/20 05:13 Sodium 151 H Potassium 3.6 Chloride 121 H Carbon Dioxide 26 BUN 37 H Creatinine 1.42 H Glucose 106 H Calcium 8.9 Medications Administered Current Inpatient Medications Aspirin (Aspirin 81 Mg Ectab) 81 mg PO QAM [facility] Stop: 12/04/20 08:59 Last Admin: 11/13/20 08:25 Dose: Not Given Documented by: Baclofen (Baclofen 10 Mg Tab) 10 mg PO BID PRN PRN Reason: GI Upset Stop: 12/08/20 20:59 Citalopram Hydrobromide (Citalopram 20 Mg Tab) 20 mg PO QDL [facility] Stop: 12/04/20 11:29 Last Admin: 11/13/20 11:51 Dose: Not Given Documented by: Promethazine HCl 12.5 mg/ (Sodium Chloride) 50.5 mls @ 202 mls/hr IV Q6H PRN PRN Reason: Nausea And Vomiting Stop: 12/06/20 22:54 Last Infusion: 11/06/20 23:30 Dose: Infused Documented by: Dextrose (D5w) 1,000 mls @ 125 mls/hr IV .Q8H JESSICA Stop: 11/14/20 09:14 Last Admin: 11/13/20 10:42 Dose: 125 mls/hr Documented by: Memantine (Memantine Hcl 5 Mg Tab) 5 mg PO BID [facility] Stop: 12/03/20 20:59 Last Admin: 11/13/20 08:25 Dose: Not Given Documented by: Olanzapine (Olanzapine 10 Mg/2.1 Ml Sdv) 2.5 mg IM Q8H PRN PRN Reason: severe agitation/delirium Stop: 12/03/20 18:44 Last Admin: 11/05/20 23:16 Dose: 2.5 mg Documented by: Olanzapine (Olanzapine Zydis 5 Mg Orally Dis. Tab) 5 mg PO Q8H PRN PRN Reason: Agitation Stop: 12/08/20 09:59 Last Admin: 11/09/20 21:06 Dose: 5 mg Documented by: Pantoprazole Sodium (Pantoprazole 40 Mg Tab) 40 mg PO DAILY [facility] Stop: 12/04/20 08:59 Last Admin: 11/13/20 08:25 Dose: Not Given Documented by: (1) Altered mental status Altered mental status type: unspecified Qualified Code(s): R41.82 - Altered mental status, unspecified
--- NOTE | 2020-11-13 16:27 | Discharge Summary ---
Date of Service November 13, 2020 Admission HPI Per Admitting Provider The patient is a 85-year-old man on hospice with a history of Alzheimer's dementia and aggressive sundowning behavior recently. He lives at home with his son and has 24-hour caregivers however, he has become more difficult to handle in the home environment with only one provider present. History is obtained from the son by phone. The patient is altered and cannot give a history or review of symptoms. The son is his case loader operator and power of estate planning attorney. He reports that and came off of it completely 2 weeks ago. The following week he saw his dad improve and instead he was sleeping better at night. However, during the last few days he has been flying out of his bed at night onto the floor having hallucinations. The son describes it "like someone flipped a switch and it is too hard to control." Work-up in the ER generally reveals no evidence of infection. The patient has been extremely agitated and his blood pressure is elevated as a result. He is on lisinopril at home but current potassium is 5.5 so this will be held. This patient is a hospice patient and his son was very clear that no aggressive work-up should be undertaken. This admission is more to help and facilitate placement of his father into a facility where he can have more care and help at his disposal. I clarified with the son that he is a DO NOT RESUSCITATE DO NOT INTUBATE. I reviewed the outpatient records. I was also notified by his son that sedatives such as Ativan and narcotics tend to have the opposite effect on his dad and cause him to be more alert awake and aggressive. Admission Exam Per Admitting Provider Physical Exam: CONSTITUTIONAL: WNWD, vitals as above, generally appears agitated and is fidgetng and mumbling to himself with his eyes closed. He is hiccupping. EYES: PERRL, normal conjunctivae, no scleral icterus ENT: external ear and nose normal, oropharynx clear, MMM RESPIRATORY: clear to auscultation bilaterally, no crackles, rales or wheezes, normal respiratory effort -limited exam as patient is holding arms close by his side CARDIOVASCULAR: regular rate and rhythm, S1 and 2 heard without murmurs, gallops or rubs, no JVD, no peripheral edema GASTROINTESTINAL: soft, nontender, nondistended, no guarding MUSCULOSKELETAL: strength 5/5 throughout, head is normocephalic and there is a small brown nini ?ecchymosis under his right eye area. SKIN: warm and dry NEUROLOGIC: unable to obtain patellar DTRs as patient was resisting examination, no facial palsy, agitated and exam is difficult to perform. He is moving all extremities equally. PSYCHIATRIC: uncooperative with exam, unable to converse or follow instructions. Babbling, delirious Principal Diagnosis Alzheimer's dementia, altered mental status-back to baseline, declining oral intake of food and fluid, hypertension Discharge Exam Constitutional + ill appearing Eyes PERRL, conjunctivae normal, anicteric sclerae ENMT external ear and nose normal, oropharynx normal Neck trachea midline, no thyromegaly Respiratory no respiratory distress Auscultation: + diminished lung sounds Cardiovascular Rate/Rhythm: regular rate and regular rhythm Heart Sounds: no murmur Extremities: no edema Gastrointestinal (Abdomen) Inspection/Auscultation: normal bowel sounds Percussion/Palpation: abdomen soft; abdomen nontender Psychiatric Insight: + poor insight Lymphatic no cervical or axillary lymphadenopathy Discharge Data Allergies Allergy/AdvReac Type Severity Reaction Status Date / Time Penicillins Allergy Unknown ANAPHYLAXIS Verified 11/03/20 14:03 Consultations 11/03/20 16:02 ED Decision to Admit Stat 11/03/20 18:40 Consult Case Management - Discharge Planning Routine 11/04/20 10:59 Consult Palliative Care Routine Ordered Studies 11/03/20 18:59 CT head/brain wo con Urgent Hospital Course (1) Altered mental status: Dementia with aggressive behaviors and sundowning that has been getting worse over the past week per his son. Son reports it was like someone flipped a switch. Unable to perform CT head to rule out stroke 2/2 agitation. Cont supportive care and if he sundowns severely with aggressive behavior will consider olanzapine. Remains alert and awake today but noncommunicative He has not been eating and not drinking. Has been getting Zyprexa IM as needed for aggressiveness No more aggressiveness and the Zyprexa has been changed to oral Has remained stable and seems to be more alert and awake today Continue to push oral food and fluids-taking only a few bites Remains otherwise stable-but not been eating and/or drinking-we will need to push food and fluid with recurrent trials There is some increase in the oral intake Whenever he is accepted we can transfer him to the facility for continued care His son reports that he likes sweets and likes to eat waffles and peanut butter toast. Hypernatremia Likely secondary to dehydration We will try small amount of intravenous half-normal saline with dextrose He has been waiting to be transferred Has been getting some intravenous fluid The patient was willing to drink more during my conversation with him this morning (2) Alzheimer's dementia: Reorient as necessary, placement into facility with help from Case Management as a goal. Patient is currently on Hospice. Cont citalopram and Namenda per home regimen. He is now off donepezil. currently, not tolerating anything PO per nursing staff. Seems to be back to his baseline (3) HTN (hypertension): at goal, cont holding lisinopril to minimize pill burden. Will restart if BP rises. (4) CKD (chronic kidney disease) stage 3, GFR 30-59 ml/min: at his baseline. Avoid nephrotoxic medications and renally dose medications as needed. Has GAVIN secondary to dehydration We will give intravenous fluid and monitor. Advised to drink more water (5) CAD (coronary artery disease): s/p CABG in past. Cont medical management with ASA 81mg per home regimen when able to swallow. (6) DVT prophylaxis: SCDs/Lovenox DNR/DNI-Hospice patient here for placement Dispo-pending ability to be placed into facility. Cleared from a medical standpoint to transfer to a facility any time. Medically stable to be discharged Discussed with the son on 11/11/20 and again today that is 11/13/2020 Total Time Total Time Spent Total Time Spent (In Minutes): 35 minutes Total Time Includes: Examination of the Patient, Discharge Planning, Medication Reconciliation and Communication With Other Providers Discharge Plan Discharge Items Patient Disposition: Hospice - Medical Facility Reason For Visit: DEMENTIA W/ BEHAVIORAL DISTURBANCE Discharge Diagnosis: Alzheimer's dementia, altered mental status-back to baseline, declining oral intake of food and fluid, hypertension Condition on Discharge: Fair Activity: As commented below Activity Comment: Will need assistance in ADL S including feeding. Non-emergency contact: Primary Care Provider Call non-emergency contact if: you have any medication questions and your symptoms worsen Follow-up/Referrals: Orestes Wesley MD [Primary Care Provider] - (As per recommendation from [facility]) Diet: Regular Diet Texture: Pureed (blended smooth) Diet Comment: He likes sweets,waffles and peanut butter toast.Has to be fed with patience Addtl Attending Provider Instructions: Please take precaution to avoid falls Please try to make him drink more water and fluids Pending Studies at Discharge: No Stand-Alone Forms: My [facility] Skilled Items Patient informed of condition?: Yes DNR: Yes Discharge Level of Care: Other Communicable Disease: No Discharge Prognosis: Stable Lines: None Urinary Catheter: Yes Medications and DC Order Prescriptions: New olanzapine 5 mg Tablet,Disintegrating 5 mg PO Q8H PRN (Reason: agitation) 30 Days Qty: 30 RF: 0 Continued aspirin 81 mg Tablet,Delayed Release (Dr/Ec) 81 mg PO QAM RF: 0 citalopram [Celexa] 20 mg Tablet 20 mg PO QDL RF: 0 esomeprazole magnesium [Nexium] 20 mg Capsule,Delayed Release(Dr/Ec) 20 mg PO DAILY RF: 0 memantine [Namenda] 5 mg tablet 5 mg PO BID RF: 0 Discontinued lisinopril 10 mg Tablet 10 mg PO QDL RF: 0 Discharge Orders: Discharge Order (Routine); Ordered 11/13/20 Ordered By: Peggy Payan/Other Patient Handouts: What Is Palliative Care? Admission Data Admit Date/Time: 11/04/20 11:00 Attending Provider: Peggy Oneil Admit Provider: Chris Nunez Primary Care Provider: Orestes Wesley Other Providers: Chris Nunez ; Kelsea Ramires ; Aarti [facility] ; [facility] ; [facility], ; Lorri Parson Other Interventions: Discharge Summary Assessment (RN) Last Done: 11/13/20 14:51
[2020-11-13] MEDS ORDERED: DESTROY THIS MEDICATION ONE (18:01)
[2020-11-14] MEDS ORDERED: Nursing to Pharmacy Communication SCH (21:00)
== END 2020-11-13 18:01 | disposition hospice, inpatient (51) | DRG 57 ==
LOC: ED 12:21 → 3N 12:21 → SUATTDRO 16:38 → 3N 17:28 → SUATTDRO 11-04 11:00